=== PATIENT | female | born 1960 | race Caucasian/White ===

== ENCOUNTER 2024-03-08 11:34 | Emergency (ER) | payer MEDICAID, SELFPAY ==
--- NOTE | ~2024-03-08 | CT_ITS ---
History: Fall PROCEDURE: CT lumbar spine without intravenous contrast. COMPARISON: None TECHNIQUE: Multiple contiguous axial images of the lumbar spine were performed without the administration of int ravenous contrast. DLP: 260 mGy-cm FINDINGS: Preservation of the normal lordotic curvature of the lumbar spine. Degenerative disease is present most prominent at the level of L5/S1 with osteophyte formation, disc space narrowing, endplate changes and severe facet hypertrophy. Grade 1 anterolisthesis of L4 onto L5 is present. No acute compression fractures are present. No soft tissue abnormality is noted. Within the right hemipelvis is a well-circumscribed focus of fluid attenuation measuring 3.8 x 3.0 x 3.8 cm (anterior to posterior x medial to lateral x cranial to caudal dimension). This likely represe nts a right ovarian cyst for which nonemergent ultrasound may be performed as follow-up. Impression: Degenerative disease, without acute compression fracture. Findings within the right hemipelvis which most likely represent a right ovarian cyst for which nonem ergent ultrasound may be performed for confirmation. Reviewed, dictated and finalized at location A. OR STORAGE ENGINEER Impression: Degenerative disease, without acute compression fracture. Findings within the right hemipelvis which most likely represent a right ovaria n cyst for which nonemergent ultrasound may be performed for confirmation.
--- NOTE | ~2024-03-08 | CT_ITS ---
EXAMINATION: CT facial & cervical spine wo DATE: 03/08/2024 13:12 INDICATION: Head injury. TECHNIQUE: Computed tomography (CT) of the maxillofacial region and cervical spine was performed with out intravenous contrast. Automated exposure control and iterative reconstruction technique were empl oyed. The dose-length product was 180.97 mGy-cm. COMPARISON: None FINDINGS: MAXILLOFACIAL CT: The orbits are normal. There is rightward deviation of the nasal septum. No fracture. The paranasal s inuses are clear. CERVICAL SPINE CT: Alignment is normal. Vertebral body heights are normal. There is mildly decreased disc height at C2-C 3 and C3-C4 and moderately decreased disc height from C4-C5 through C6-C7. The following disc levels are specifically discussed: C2-C3: There is mild left uncovertebral joint hypertrophy. There is mild left facet joint osteoarthri tis. There is ankylosis of right facet joint with mild hypertrophy. There is mild left neural foramin al stenosis. There is no central canal stenosis. C3-C4: There is mild bilateral uncovertebral joint osteoarthritis. There is mild bilateral facet join t osteoarthritis. There is mild bilateral neural foraminal stenosis. There is mild central canal sten osis. C4-C5: There is severe right and mild left uncovertebral joint osteoarthritis. There is mild right an d severe left facet joint osteoarthritis. There is mild bilateral neural foraminal stenosis. There is mild central canal stenosis. C5-C6: There is severe bilateral uncovertebral joint osteoarthritis. There is mild bilateral facet tita int osteoarthritis. There is mild right and moderate left neural foraminal stenosis. There is moderat e central canal stenosis. C6-C7: There is severe bilateral uncovertebral joint osteoarthritis. There is severe bilateral facet joint osteoarthritis. There is mild bilateral neural foraminal stenosis. There is mild central canal stenosis. C7-T1: There is no uncovertebral joint osteoarthritis. There is severe bilateral facet joint osteoart hritis. There is mild bilateral neural foraminal stenosis. There is no central canal stenosis. IMPRESSION: 1. No fracture. 2. Moderate cervical spondylosis. Reviewed, dictated and finalized at location A. TRUCK ENGINE MECHANIC
--- NOTE | ~2024-03-08 | CT_ITS ---
History: Fall. PROCEDURE: CT head without contrast. COMPARISON: None TECHNIQUE: Axial imaging of the head performed from the skull base to the vertex without IV contrast. Sagittal a nd coronal reformations obtained. DLP: 605 mGy-cm FINDINGS: The ventricles are normal in size, shape and position. There is no mass, mass effect or midline shift. There is no abnormal extra-axial fluid collection or intracranial hemorrhage. Visualized paranasal sinuses are clear. The mastoid air cells are well aerated. No acute displaced fractures within the overlying cranium. Impression: No acute intracranial hemorrhage or suspicious mass effect. Reviewed, dictated and finalized at location A. ER HELPER Impression: No acute intracranial hemorrhage or suspicious mass effect.
--- NOTE | ~2024-03-08 | XR_ITS ---
XR ankle LT min 3V 03/08/2024 12:57 Indication: Left lateral ankle pain Procedure: 4 views left ankle Comparison: No prior studies for comparison. Findings: There is a fibular side plate and screws. No acute fracture or traumatic malalignment. Ossi fication just distal to the medial malleolus consistent with sequela of old trauma. There are degener ative calcaneal enthesophytes. Osteopenia. No acute fracture or traumatic malalignment. Impression: 1: No acute bone or joint abnormality. Reviewed, dictated and finalized at location A. IALIZED LANGUAGE INSTRUCTOR Impression: 1: No acute bone or joint abnormality.
--- NOTE | ~2024-03-08 | XR_ITS ---
EXAMINATION: XR chest 2V 03/08/2024 12:57 INDICATION: Anxiety. Status post fall. PROCEDURE: 2 view chest COMPARISON: 09/03/2018 FINDINGS: The lungs are clear. The cardiomediastinal silhouette is within normal limits. There are no pleural effusions. There is no pneumothorax suspected. IMPRESSION: 1: NO ACUTE CARDIOPULMONARY DISEASE. Reviewed, dictated and finalized at location A. TROPHYSIOLOGY TECHNOLOGIST
--- NOTE | ~2024-03-08 | XR_ITS ---
XR knee LT min 4V 03/08/2024 12:57 Indication: Left knee pain after fall Procedure: 4 views left knee Comparison: No prior studies for comparison. Findings: No fracture, subluxation or dislocation. No significant joint effusion. No foreign bodies. Impression: 1: No acute bone or joint abnormality. Reviewed, dictated and finalized at location A. EONTOLOGIST Impression: 1: No acute bone or joint abnormality.
[2024-03-08 11:42] VITALS: BP 136/100; PULSE 92; RESP 16; TEMP 36.3; O2SAT 95
--- NOTE | 2024-03-08 12:42 | ED.FALL ---
HPI - Fall General Chief Complaint: Alcohol Stated Complaint: +etoh, anxiety, fall yesterday Time Seen by Provider: 03/08/24 12:42 Focused HPI: This is a 63-year-old female that presents to the emergency department after a fall yesterday with head injury. Reports she had been drinking. Fell and hit her head. She believes she lost consciousness. Reports low back pain, left knee pain, left ankle pain. Reporting possibly being in withdrawal. Reports feeling anxious and shaky GENERAL: Well-appearing, well-nourished, and in no acute distress. HEAD: Normocephalic, atraumatic. CHEST: Clear to auscultation. ?No respiratory distress. HEART: Regular rate and rhythm.? NEURO: ?Alert and oriented x3. Patient screened in triage and initial orders placed.? ?Additional care and disposition to be based upon?diagnostic testing and treatment. Related Data Allergies Allergy/AdvReac Type Severity Reaction Status Date / Time codeine Allergy Mild NAUSEA Verified 03/08/24 11:36 erythromycin base Allergy Unknown RASH Verified 03/08/24 11:36 Penicillins Allergy Unknown N/V, RASH Verified 03/08/24 11:36 Sulfa (Sulfonamide Allergy Unknown RASH Verified 03/08/24 11:36 Antibiotics) tramadol Allergy Unknown RASH Verified 03/08/24 11:36 Course Vital Signs Vital signs: Vital Signs Temperature 97.4 F L 03/08/24 11:42 Pulse Rate 92 03/08/24 11:42 Respiratory Rate 16 03/08/24 11:42 Blood Pressure 136/100 H 03/08/24 11:42 Pulse Oximetry 95 03/08/24 11:42 Oxygen Delivery Room Air 03/08/24 11:42 Temperature 97.4 F L 03/08/24 11:42 Pulse Rate 92 03/08/24 11:42 Respiratory Rate 16 03/08/24 11:42 Blood Pressure 136/100 H 03/08/24 11:42 Pulse Oximetry 95 03/08/24 11:42 Oxygen Delivery Room Air 03/08/24 11:42 MDM - Fall MDM Narrative Medical decision making narrative: Patient left after medical screening exam and initial workup, and before any further evaluation or management Lab Data 03/08/24 14:26 03/08/24 14:26 Labs: Lab Results 03/08/24 03/08/24 03/08/24 Range/Units 14:26 14:27 14:32 WBC 9.5 (4.5-10.0) K/mm3 RBC 4.62 (4.2-5.4) M/mm3 Hgb 14.2 (12.0-15.0) g/dL Hct 42.7 (37.0-47.0) % MCV 92.4 (80-100) fl MCH 30.7 (26-34) pg MCHC 33.3 (32-36) g/dl RDW 13.9 (11.5-14.5) % Plt Count 360 (150-375) k/mm3 MPV 8.9 (7.4-10.4) fl Immature Gran % (Auto) 0.3 (0-0.5) % Neut % (Auto) 71.3 (45.5-73.1) % Lymph % (Auto) 21.4 (18.3-44.2) % Larue % (Auto) 6.6 (2.6-8.5) % Eos % (Auto) 0.0 (0-4.4) % Baso % (Auto) 0.4 (0.2-1.2) % Lymph # (Auto) 2.04 (0.9-3.2) K/mm3 Larue # (Auto) 0.6 (0.1-0.6) K/mm3 Eos # (Auto) 0.0 (0-0.3) K/mm3 Baso # (Auto) 0.0 (0.0-0.1) K/mm3 Abs Immat Gran (auto) 0.03 (0.00-0.031) K/mm3 Absolute Neuts (auto) 6.8 H (1.3-6.7) K/mm3 Absolute Nucleated RBC 0.000 (0.0-0.012) K/mm3 Nucleated RBC % 0.0 (0.0-0.2) % PT 12.4 (11.1-14.7) Seconds INR 0.9 APTT 23.6 (22.3-36.8) Seconds Sodium 142 (137-145) mmol/L Potassium 4.7 (3.4-5.0) mmol/L Chloride 104 (98-107) mmol/L Carbon Dioxide 18 L (22-30) mmol/L Anion Gap 20 H (4-12) mmol/L BUN 18 H (7-17) mg/dL Creatinine 0.74 (0.7-1.0) mg/dL Estim Creat Clear Calc Not Reportable Estimated GFR > 60 (59 - ) Glucose 114 H (65-110) mg/dL Calcium 8.5 (8.4-10.2) mg/dL Total Bilirubin 0.7 (0.2-1.3) mg/dL AST 39 H (14-36) U/L ALT 23 (6-35) U/L Alkaline Phosphatase 106 (38-126) U/L Total Protein 8.0 (6.3-8.2) g/dL Albumin 4.8 (3.5-5.1) g/dL Lipase 106 (23-300) U/L Urine Color Yellow (Yellow) Urine Appearance Clear (Clear) Urine pH 7.5 (5.0-9.0) Ur Specific [place] 1.017 (1.001-1.035) Urine Protein Trace (Negative) mg/dL Urine Glucose (UA) Negative (Negative) mg/dL Urine Ketones Negative (Negative) mg/dL Ur Blood (Man) Negative (Negative) Urine Nitrate Negative (Negative) Urine Bilirubin Negative (Negative) Urine Urobilinogen 0.2 (<2.0) mg/dL Leukocyte Esterase Rfl Negative (Negative) ASAF/UL Urine RBC 3-5 H (0-2) /hpf Urine WBC 0-5 (0-3) /hpf Ur Squamous Epith Cells Moderate (Few) /hpf Urine Bacteria None seen /hpf Urine Casts 3-5 Ethyl Alcohol 214 (<10) mg/dL Discharge Plan Discharge Clinical Impression: Alcohol abuse Fall Qualifiers: Encounter type: initial encounter Qualified Code(s): W19.XXXA - Unspecified fall, initial encounter Head injury Qualifiers: Encounter type: initial encounter Qualified Code(s): S09.90XA - Unspecified injury of head, initial encounter Patient Disposition: Elopement After Seen by Prov Condition: Stable Patient Language: Iranian Follow-up/Referrals: PHYSICIAN,INSTRUMENT MAKER [Non-Staff] -
--- OUTSIDE RECORDS SUMMARY | 2024-03-08 13:14 | XMS_ITS | Encounter Summary ---
Author Organization [facility] Address [address] [place] [address] Phone Care Team Providers Care Quality Systems Specialist Name Role Phone José Sagastume MD Primary Care Provider [phone] Loyda Jackson APRN, [facility] Primary Care Provider + Siri Henao APRN, SALES REPRESENTATIVE [employer] Unavailable + [phone] Gregorio Lemus MD Unavailable [phone] Loyda Jackson APRN, [employer] D[employer]ER [employer] Primary Care Provider + José Sagastume MD Primary Care Provider [phone] Loyda Jackson APRN, [employer] T[employer] Primary Care Provider + José Sagastume MD Primary Care Provider [phone] Loyda Jackson APRN, [employer] DRIER T[employer] Primary Care Provider + Provider, None Primary Care Provider Unavailabl e Loyda Jackson APRN, [employer] DRIER TENDER Primary Care Provider + José Sagastume MD Primary Care Provider [phone] Provider, None Primary Care Provider Unavailabl e Reason for Visit * Reason Comments Medication Refill Encounter Details Date Type Department Care Team (Late st Contact Info) Description 10/02/2021 [facility]ill [facility] - [facility] [address] [place] [address] José Sagastume MD [address] [place] [address] Medication Refill Social History Tobacco Use Types Packs/Day Years Used Date Smoking Tobacco: Never Smokeless Tobacco: Never Alcohol Use Standard Drinks/Week Comments Yes 0 (1 standard drink = 0.6 oz pur e alcohol) Occasionally PHQ-2 Answer Date Recorded Total Score - Questions 1-9 0 04/06 Comments No Sex and Gender Information Value Date Recorded Sex Assigned at Female 09/19/2022 10:32 AM CDT Legal Sex Female 10:55 PM CDT Gender Identity Female 09/19/2022 10:32 AM CDT Sexual Orientation Not on file 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 No / Unsure 09/15/2021 2:40 PM CDT documented as of this encounter Miscellaneous Notes * Telephone Encounter - Alanna Alfredo RN - 10/04/2021 10:17 AM CDT Medication failed the protocol, provider to review and approve the medication order if appropriate. Requested Prescriptions Pending Prescriptions Disp Refills methocarbamol (ROBAXIN) 750 MG Tablet [Pharmacy Med Name: Methocarbamol 750 MG Oral Tablet] 120 Tablet 0 Sig: TAKE 1 TABLET BY MOUTH 4 TIMES DAILY NEEDED FOR MUSCLE SPASM Not Delegated - Muscle Relaxants Protocol Failed - 10/02/2021 9:09 AM Failed - This refill cannot be delegated Passed - Visit with relevant provider in past 12 months or upcoming 90 days Recent Visits Date Type Provider Dept 08/26/21 Office Visit José Sagastume MD [facility] 04/22/21 Office Visit José Sagastume MD [facility] Showing recent visits within past 365 days and meeting all other requirements Future Appointments No visits were found meeting these conditions. Showing future appointments within next 90 days and meeting all other requirements documented in this encounter Plan of Treatment Upcoming Encounters Date Type Department Care Team (Late st Contact Info) Description 09/03/2024 10:30 AM CDT Office Visit [facility] Neu[facility] [address] [place] [address] Gregorio Lemus MD [address] [place] [address] documented as of this encounter Visit Diagnoses Diagnosis Chronic bilateral low back pain without sciatica documented in this encounter Additional Health Concerns Infection Onset Date Last Indicated Resolved Time COVID - 19 01/22/2022 01/22/2022 01/25/2022 8:35 AM MANAGED CARE ANALYST COVID - 19 Confirmed 02/21/2022 02/21/2022 023 12:16 AM MANAGED CARE ANALYST COVID - 19 04/06/2023 04/06/2023 04/16/2023 12:1 6 AM MANAGED CARE ANALYST C. difficile Rule-Out 04/08/2023 04/08/20232023 2:20 PM MANAGED CARE ANALYST C. difficile Rule-Out 04/19/2023 04/20/20232023 9:22 AM CDT COVID - 19 07/06/2023 07/06/2023 07/06/2023 4:44 PM CDT Assessment Noted Time PHQ-9 Depression Total Score: 0 04/23/19 22 4:00 PM CDT documented as of this encounter Care Teams Quality Systems Specialist Relationship Specialty Start Date End Date José Sagastume MD PCP - General Family Medicine 03/02/20 03/12/23 Loyda Jackson, TECHNICAL TRAINING SPECIALIST, OVEN DRIER TENDER [address] [place] [address] PCP - General Advanced Practice Nurse 03/13/23 04/18/23 Loyda Jackson, TECHNICAL TRAINING SPECIALIST, OVEN DRIER TENDER [address] [place] [address] PCP - General Advanced Practice Nurse 04/19/23 05/08/23 José Sagastume MD PCP - General Family Medicine 05/09/23 05/21/23 Loyda Jackson TECHNICAL TRAINING SPECIALIST, OVEN DRIER TENDER [address] [place] [address] PCP - General Advanced Practice Nurse 05/22/23 05/25/23 José Sagastume MD PCP - General Family Medicine 05/26/23 05/27/23 Loyda Jackson, TECHNICAL TRAINING SPECIALIST, OVEN DRIER TENDER [address] [place] [address] PCP - General Advanced Practice Nurse 05/28/23 06/15/23 Provider, None [place] PCP - General 06/16/23 07/05/23 Loyda Jackson, TECHNICAL TRAINING SPECIALIST, OVEN DRIER TENDER [address] [place] [address] PCP - General Advanced Practice Nurse 07/06/23 07/10/23 José Sagastume MD PCP - General Family Medicine 07/11/23 10/11/23 Provider, None [place] PCP - General 10/29/23 Siri Henao, TECHNICAL TRAINING SPECIALIST, SALES REPRESENTATIVE [employer] [address] [place] [address] Nurse Practitioner Advanced Practice Nurse 02/17/22 Gregorio Lemus MD [address] [place] [address] Consulting Physician Neurology 02/21/23 documented as of this encounter
--- OUTSIDE RECORDS SUMMARY | 2024-03-08 13:14 | XMS_ITS | Encounter Summary ---
Author Organization [facility] Address [address] [place] [address] Phone Care Team Providers Care Hemodialysis Charge Nurse Name Role Phone José Sagastume MD Primary Care Provider [phone] Loyda Jackson APRN, [facility] Primary Care Provider + Siri Henao APRN, CIRC[employer] KNITTER Unavailable + [phone] Gregorio Lemus MD Unavailable [phone] Loyda Jackson APRN, [employer] Primary Care Provider + José Sagastume MD Primary Care Provider [phone] Loyda Jackson APRN, [employer] Primary Care Provider + José Sagastume MD Primary Care Provider [phone] Loyda Jackson APRN, [employer] Primary Care Provider + Provider, None Primary Care Provider Unavailabl e Loyda Jackson APRN, [employer] Primary Care Provider + José Sagastume MD Primary Care Provider [phone] Provider, None Primary Care Provider Unavailabl e Reason for Visit * Reason Comments Medication Refill Encounter Details Date Type Department Care Team (Late st Contact Info) Description 12/02/2021 [facility]ill [facility] [address] [place] [address] José Sagastume MD [address] [place] [address] Medication Refill Social History Tobacco Use Types [...] 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 No / Unsure 11/11/2021 12:55 PM CDT documented as of this encounter Miscellaneous Notes * Telephone Encounter - Alanna Alfredo RN - 12/03/2021 10:13 AM CDT Medication failed the protocol, provider to review and approve the medication order if appropriate. Requested Prescriptions Pending Prescriptions Disp Refills methocarbamol (ROBAXIN) 750 MG Tablet [Pharmacy Med Name: Methocarbamol 750 MG Oral Tablet] 120 Tablet 0 Sig: TAKE 1 TABLET BY MOUTH 4 TIMES DAILY NEEDED FOR MUSCLE SPASM Not Delegated - Muscle Relaxants Protocol Failed - 12/02/2021 7:54 PM Failed - This refill cannot be delegated Passed - Visit with relevant provider in past 12 months or upcoming 90 days Recent Visits Date Type Provider Dept 08/26/21 Office Visit José Sagastume MD [facility] 04/22/21 Office Visit José Sagastume MD [facility] Showing recent visits within past 365 days and meeting all other requirements Future Appointments Date Type Provider Dept 12/09/21 Appointment José Sagastume MD [facility] Showing future appointments within next 90 days and meeting all other requirements documented in this encounter Plan of Treatment Upcoming Encounters Date Type Department Care Team (Late st Contact Info) Description 09/03/2024 10:30 AM CDT [facility] [address] [place] [address] Gregorio Lemus MD [address] [place] [address] documented as of this encounter Visit Diagnoses Diagnosis Chronic bilateral low back pain without sciatica documented in this encounter Additional Health Concerns Infection Onset Date Last Indicated Resolved Time COVID - 19 01/22/2022 01/22/2022 01/25/2022 8:35 AM CARPENTER'S ASSISTANT COVID - 19 Confirmed 02/21/2022 02/21/2022 023 12:16 AM CARPENTER'S ASSISTANT COVID - 19 04/06/2023 04/06/2023 04/16/2023 12:1 6 AM CARPENTER'S ASSISTANT C. difficile Rule-Out 04/08/2023 04/08/20232023 2:20 PM CARPENTER'S ASSISTANT C. difficile Rule-Out 04/19/2023 04/20/20232023 9:22 AM CDT COVID - 19 07/06/2023 07/06/2023 07/06/2023 4:44 PM CDT Assessment Noted Time PHQ-9 Depression Total Score: 0 04/23/19 4:00 PM CDT documented as of this encounter Care Teams Hemodialysis Charge Nurse Relationship Specialty Start Date End Date José Sagastuem MD PCP - General Family Medicine 03/02/20 03/12/23 Loyda Jackson, COMPUTER SYSTEMS INTEGRATOR, [employer] [address] [place] [address] PCP - General Advanced Practice Nurse 03/13/23 04/18/23 Loyda Jackson APRN, [employer] [address] [place] [address] PCP - General Advanced Practice Nurse 04/19/23 05/08/23 José Sagastume MD PCP - General Family Medicine 05/09/23 05/21/23 Loyda Jackson APRN, [employer] [address] [place] [address] PCP - General Advanced Practice Nurse 05/22/23 05/25/23 José Sagastume MD PCP - General Family Medicine 05/26/23 05/27/23 Loyda Jackson APRN, [employer] [address] [place] [address] PCP - General Advanced Practice Nurse 05/28/23 06/15/23 Provider, None [place] PCP - General 06/16/23 07/05/23 Loyda Jackson APRN, [employer] [address] [place] [address] PCP - General Advanced Practice Nurse 07/06/23 07/10/23 José Sagastume MD PCP - General Family Medicine 07/11/23 10/11/23 Provider, None [place] PCP - General 10/29/23 Siri Henao COMPUTER SYSTEMS INTEGRATOR, CIRCULAR KNITTER [address] [place] [address] Nurse Practitioner Advanced Practice Nurse 02/17/22 Gregorio Lemus MD [address] [place] [address] Consulting Physician Neurology 02/21/23 documented as of this encounter
--- OUTSIDE RECORDS SUMMARY | 2024-03-08 13:15 | XMS_ITS | CONTINUITY OF CARE DOCUMENT ---
Author Name kalin gagnon Address Unknown Organization [facility] Address [address] [place] [address] Phone [phone] Care Team Providers Care Bender Hand Name Role Phone Miguel GUTIERRES, Allan Unavailable [phone] ALEKSANDR MONTEIRO MD Unavailable ALEKSANDR MONTEIRO MD Unavailable [phone] PROBLEMS Condition Status Date Provider Notes Other symptoms involving cardiovascular system completed - Allan Rivera MD Chest pain-nl stress test , nl echo active Allan Rivera MD GERD active Allan Rivera MD HTN essential active Allan Rivera MD Hypercholesterolemia active Allan Rivera MD ENCOUNTERS Date Type Provider Location Encounter Diag nosis - In-person encounter Office Visit Allan Rivera MD [facility] Chest pain-nl stress test , nl echo - In-person encounter Office Visit Allan Rivera MD [facility] Other symptoms involving cardiovascular systemChest pain-nl stress test , nl echoGERDHTN essentialHypercholesterolemia VITAL SIGNS Date Observation Value Provider blood pressure, diastolic 105 mm[Hg] velma Bret blood pressure, systolic 144 mm[Hg] Livia peacea Bret pulse rate 100 /min Elizabet Bret Body Mass Index (Ratio) 30.72 kg/m2 Drea Queen oxygen saturation, oximetry 96 % Elizabet Bret respiratory rate E&M 15 /min Elizabet Guann weight E&M 168 [lb_av] Elizabet Queen Body Mass Index (Ratio) 31.09 kg/m2 Anea syeda Manuel blood pressure, diastolic 108 mm[Hg] An eatris Manuel blood pressure, systolic 153 mm[Hg] Ane atris Manuel pulse rate 97 /min Aneatris Manuel oxygen saturation, oximetry 98 % Aneatris Manuel respiratory rate E&M 18 /min Aneatri s Manuel weight E&M 170 [lb_av] Kayleyatris Manuel height E&M 62 [in_i] Kayleyatrramona Jackson blood pressure, diastolic 90 mm[Hg] Ta zack Conklin blood pressure, systolic 140 mm[Hg] Ortega ica Conklin ALLERGIES Allergy Name Onset Date Reaction Criticality Status ULTRAM High Criticality active SULFA High Criticality active EES High Criticality active HISTORY OF MEDICATION USE Medication Status Instructions Dates Provider Indications Com ments LOTENSIN HCT 10-12.5 MG ORAL TABLET active ONE TAB. DAILY Allan Rivera MD [facility] SUPER B COMPLEX/C ORAL TABLET active once daily Elizabet Queen MULTIVITAMINS ORAL CAPSULE active ONE TAB. DAILY Elizabet Queen FISH OIL 1000 MG ORAL CAPSULE active 2 once daily Elizabet Queen HM POTASSIUM 595 (99 K) MG ORAL TABLET active once daily Elizabet Queen AMITRIPTYLINE HCL 75 MG ORAL TABLET active once daily Elizabet Queen LIPITOR 40 MG ORAL TABLET active ONE TAB. DAILY Elizabet Queen ASPIRIN 81 MG ORAL TABLET active ONE TAB. DAILY Betty Jackson OMEPRAZOLE 20 MG ORAL TABLET DELAYED RELEASE active 1 tab daily Betty Jackson SEROQUEL TABLET active 600 mg one tab daily Kayleycarterramona Jackson SOCIAL HISTORY Date Observation Value Provider social history reviewed E&M reviewed - no changes required Allan Rivera MD smoking status Never smoker Elizabet romero social history reviewed E&M reviewed - no changes required Allan Rivera MD smoking status Never smoker Betty romero smoking status never Ambar Conklin FAMILY HISTORY Family Member Condition Other Family Member Family History of Co ronary Artery Disease: Father Negative FH of Diabe nasim, Hypertension, or Coronary Artery Disease Mother Negative FH of Diabe nasim, Hypertension, or Coronary Artery Disease INSURANCE PROVIDERS Payer name Policy type / Coverage type [place]acc red republic[place] MED[place] Medicaid [id number] TREATMENT PLAN Date Name Performer follow up: H er updated medication list for this problem includes: Aspirin 81 Mg Tabs (Aspirin) ..... One tab. daily Lotensin Hct 10-12.5 Mg Tabs (Benazepril-hydrochlorothiazide) ..... One tab. daily BP today: 144/105 P rior BP: 153/108 (12/17/2013) Prior 10 Yr Risk Heart Disease: Not enough information (12/13/2013) Allan Rivera MD nw patient visit: H er updated medication list for this problem includes: Aspirin 81 Mg Tabs (Aspirin) ..... One tab. daily BP today: 153/108 P rior BP: 140/90 (12/13/2013) Prior 10 Yr Risk Heart Disease: Not enough information (12/13/2013) Allan Rivera MD HISTORY OF PROCEDURES Procedure Date Procedure Name Provider Procedure Notes S patricio EKG Allan Rivera MD completed
--- OUTSIDE RECORDS SUMMARY | 2024-03-08 13:15 | XMS_ITS | Encounter Summary ---
Author Organization [facility] Address [address] [place] [address] Phone Care Team Providers Care Clinical Nurse Name Role Phone José Sagastume MD Primary Care Provider [phone] Loyda Jackson APRN, [facility] Primary Care Provider + Siri Henao APRN, AIRLINE FLIGHT ATTENDANT Unavailable + [phone] Gregorio Lemus MD Unavailable [phone] Loyda Jackson APRN, DEPARTMENT HELPER Primary Care Provider + José Sagastume MD Primary Care Provider [phone] Loyda Jackson APRN, DEPARTMENT HELPER Primary Care Provider + José Sagastume MD Primary Care Provider [phone] Loyda Jackson APRN, DEPARTMENT HELPER Primary Care Provider + Provider, None Primary Care Provider Unavailabl e Loyda Jackson APRN, DEPARTMENT HELPER Primary Care Provider + José Sagastume MD Primary Care Provider [phone] Provider, None Primary Care Provider Unavailabl e Reason for Visit * Reason Comments Medication Refill Encounter Details Date Type Department Care Team (Late st Contact Info) Description 01/28/2023 [facility]ill [facility] - [facility] [address] [place] [address] José Sagastume MD [address] [place] [address] Medication Refill Social History Tobacco Use Types Packs/Day Years Used Date Smoking Tobacco: Never Smokeless Tobacco: Never Alcohol Use Standard Drinks/Week Comments Yes 28 (1 standard drink = 0.6 oz pu re alcohol) 3-4x per week PHQ-2 Answer Date Recorded Total Score - Questions 1-9 0 04/06 Sexually Active Control Partners Comments Not Currently Comments No Sex and Gender Information Value Date Recorded Sex Assigned at Female 09/19/2022 10:32 AM CDT Legal Sex Female 10:55 PM CDT Gender Identity Female 09/19/2022 10:32 AM CDT Sexual Orientation Not on file 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 Requested Prescriptions Pending Prescriptions Disp Refills chlordiazePOXIDE (LIBRIUM) 25 MG Capsule [Pharmacy Med Name: chlordiazePOXIDE HCl 25 MG Oral Capsule] 60 Capsule 0 Sig: TAKE 2 CAPSULES BY MOUTH THREE TIMES DAILY NEEDED FOR WITHDRAWAL OR ANXIETY FOR UP TO 10 DAYS. Not Delegated - Benzodiazepines Protocol Failed - 01/28/2023 10:34 AM Failed - This refill cannot be delegated Passed - Visit with relevant provider in past 12 months or upcoming 90 days Recent Visits Date Type Provider Dept 01/18/23 Office Visit Loyda Jackson APRN, [facility] 12/16/22 Office Visit Loyda Jackson APRN, [facility] 11/28/22 Office Visit Loyda Jackson APRN, [facility] 11/21/22 Office Visit Loyda Jackson APRN, [facility] 09/20/22 Telemedicine Loyda Jackson APRN, [facility] 07/11/22 Office Visit Loyda Jackson APRN, [facility] 06/13/22 Office Visit Loyda Jackson APRN, [facility] 04/22/22 Office Visit Loyda Jackson APRN, [facility] 04/06/22 Office Visit Loyda Jackson APRN, [facility] 03/11/22 Office Visit José Sagastume MD [facility] Showing recent visits within past 365 days and meeting all other requirements Future Appointments Date Type Provider Dept 04/19/23 Appointment Loyda Jackson APRN, [facility] Showing future appointments within next 90 days and meeting all other requirements 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 documented in this encounter Plan of Treatment Upcoming Encounters Date Type Department Care Team (Late st Contact Info) Description 09/03/2024 10:30 AM CDT Office Visit [facility] - Neurology [facility] [address] [place] [address] Gregorio Lemus MD [address] [place] [address] documented as of this encounter Visit Diagnoses Diagnosis Alcohol withdrawal syndrome without complication (HCC) documented in this encounter Additional Health Concerns Infection Onset Date Last Indicated Resolved Time COVID - 19 04/06/2023 04/06/2023 04/16/2023 12:1 6 AM SOLA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 C. difficile Rule-Out 04/08/2023 04/08/20232023 2:20 PM SOLA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 C. difficile Rule-Out 04/19/2023 04/20/20232023 9:22 AM CDT COVID - 19 07/06/2023 07/06/2023 07/06/2023 4:44 PM CDT Assessment Noted Time PHQ-9 Depression Total Score: 0 04/23/19 4:00 PM CDT documented as of this encounter Care Teams Clinical Nurse Relationship Specialty Start Date End Date José Sagastume MD PCP - General Family Medicine 03/02/20 03/12/23 Loyda Jackson, EDUCATIONAL PSYCHOLOGIST, DEPARTMENT HELPER [address] [place] [address] PCP - General Advanced Practice Nurse 03/13/23 04/18/23 Loyda Jackson, EDUCATIONAL PSYCHOLOGIST, DEPARTMENT HELPER [address] [place] [address] PCP - General Advanced Practice Nurse 04/19/23 05/08/23 José Sagastume MD PCP - General Family Medicine 05/09/23 05/21/23 Loyda Jackson, EDUCATIONAL PSYCHOLOGIST, DEPARTMENT HELPER [facility] [place] [address] PCP - General Advanced Practice Nurse 05/22/23 05/25/23 José Sagastume MD PCP - General Family Medicine 05/26/23 05/27/23 Loyda Jackson, EDUCATIONAL PSYCHOLOGIST, DEPARTMENT HELPER [address] [place] [address] PCP - General Advanced Practice Nurse 05/28/23 06/15/23 Provider, None CT PCP - General 06/16/23 07/05/23 Loyda Jackson, EDUCATIONAL PSYCHOLOGIST, DEPARTMENT HELPER [address] [place] [address] PCP - General Advanced Practice Nurse 07/06/23 07/10/23 José Sagastume MD PCP - General Family Medicine 07/11/23 10/11/23 Provider, None CT PCP - General 10/29/23 Siri Henao, EDUCATIONAL PSYCHOLOGIST, AIRLINE FLIGHT ATTENDANT [address] [place] [address] Nurse Practitioner Advanced Practice Nurse 02/17/22 Gregorio Lemus MD [address] [place] [address] Consulting Physician Neurology 02/21/23 documented as of this encounter
--- OUTSIDE RECORDS SUMMARY | 2024-03-08 13:15 | XMS_ITS | Clinical Summary ---
Author Organization [facility] Address [address] [place] [address] Care Team Providers Care Manager Utilization Management Name Role Phone Loyda Jackson Primary Care Provider [phone] Allergies Active Allergy Reactions Criticality Noted Date Comments Erythromycin Rash Medium Penicillins Rash Medium 01/14/2019 Sulfa (Sulfonamide Antibiotics) Rash Medium Reaction: Rash, , Tramadol Other (See comments),Vomiting Low DIZZY Medications amitriptyline (ELAVIL) 100 mg tablet Take 1 tablet (100 mg total) by mouth nightly as needed for sleep 30 tablet 1 Active Additional Information Patient taking differently:100 mg oral Nightly PRN, sleep,Indications: anxiety, Reported on 06/08/2022 rosuvastatin (CRESTOR) 20 mg tabletIndicatio ns:hyperlipidem ia Take 1 tablet (20 mg total) by mouth nightly 2 Active methocarbamoL (ROBAXIN) 750 mg tablet TAKE 1 TABLET BY MOUTH 4 TIMES DAILY NEEDED FOR MUSCLE SPASM 2 Active citalopram (CeleXA) 10 mg tabletIndicatio ns:Generalized Anxiety Disorder Take 1 tablet (10 mg total) by mouth daily 30 tablet 1 3 Active folic acid (FOLVITE) 1 mg tabletIndicatio ns:Folate Deficiency Take 1 tablet (1 mg total) by mouth daily for 2 doses 2 tablet 3 Active hydrOXYzine (VISTARIL) 50 mg capsuleIndicati ons:anxiety Take 1 capsule (50 mg total) by mouth every 6 (six) hours as needed for anxiety 30 capsule 1 3 Active multivit kncxutjn-eqyp-P A-calcium (THERA-M) 9 mg iron-400 mcg tabletIndicatio ns:Vitamin Deficiency Prevention Take 1 tablet by mouth daily 30 tablet 1 3 Active thiamine (VITAMIN B1) 100 mg tabletIndicatio ns:Thiamine Deficiency Take 1 tablet (100 mg total) by mouth daily for 2 doses 2 tablet 3 Active LORazepam (ATIVAN) 0.5 mg tablet Take 1 tablet (0.5 mg total) by mouth every 6 (six) hours as needed for anxiety 6 tablet 4 Active Active Problems Problem Noted Date Diagnosed Date Alcohol withdrawal syndrome without complication 06/08/2022 Dupuytren contracture 09/08/2021 Overview (09/08/2021): Added automatically from request for surgery [id number] Fatigue 02/28/2020 Liver dysfunction 02/28/2020 Weight gain 02/28/2020 Insect bite of right thigh 08/07/2019 Encounter for medication refill 08/07/2019 Lipoma of left upper extremity 10/11/2017 Skin lesion 11/19/2015 Inflamed seborrheic keratosis 11/19/2015 Chest pain, unspecified 12/17/2013 Gastroesophageal reflux disease 12/17/2013 Hypercholesterolemia 12/17/2013 Primary hypertension 12/17/2013 Immunizations Name Administration Dates Next Due Hep A / Hep B 08/11/2009,08/11/2009 Influenza, Quadrivalent, Spl it, Intramuscular 10/13/2016 Influenza, Quadrivalent, Spl it, Preservative Free, Intramuscular 11/14/2020,02/28/2020,10/16/2015,12/19 ZOSTER Recombinant 04/03/2021 Surgical History Surgery Date Site/Laterality Comments TUBAL LIGATION tubal ligation AUGMENTATION MAMMOPLASTY breast augmentation OPEN REDUCTION INTERNAL FIXATION Left ORIF Medical History Medical History Date Comments Hx Other Medical Neurological Is suses Hx Other Medical Breast Reconstr uction Hx Other Medical Tubal Anxiety Alcoholism (CMS/HCC) (HCC) Addiction to drug (CMS/HCC) (HCC) Hypercholesteremia Migraines Thyroid disease Urinary tract infection Hypertension Hypothyroidism Family History Medical History Relation Name Comments Other Brother 2 Alive and well; Arthritis Father Other Father Alive and well; Arthritis Mother Leukemia Mother Leukemia; Cancer Other Family history of cancer; Other Sister 2 Alive and well; Anesthesia problems Neg Hx Relation Name Status Comments Brother 1 Alive Brother 2 Father Alive Mother Other Sister 1 Alive Sister 2 Social History Tobacco Use Types Packs/Day Years Used Date Smoking Tobacco: Never Smokeless Tobacco: Never Tobacco Cessation:Counseling Given: Not Answered Alcohol Use Standard Drinks/Week Comments Yes 0 (1 standard drink = 0.6 oz pure alcohol) 6 beers or 1 pint per day x 3 days Social Connection and Isolation Panel [NHANES] A nswer Date Recorded In a typical week, how many times do you talk on the phone with family, friends, or neighbors? Twice a week 06/10/19 How often do you get togethe r with friends or relatives? Twice a week 06/09/2022 How often do you attend chur ch or alevism services? 1 to 4 times per year 06/09/2022 Do you belong to any clubs o r organizations such as restorationist groups, unions, fraternal or athletic groups, or school groups? No 06/09/2022 How often do you attend meet ings of the clubs or organizations you belong to? Never 06/09/2022 Marital Status Not on file 06/09/2022 AUDIT-C Answer Date Recorded Q1: How often do you have a drink containing alc ohol? 2-3 times a week 11/16/2021 Q2: How many drinks containi ng alcohol do you have on a typical day when you are drinking? 1 or 2 11/16/2021 Q3: How often do you have si x or more drinks on one occasion? Never 11/16/2021 Overall Financial Resource Strain (CARDIA) Answe r Date Recorded How hard is it for you to pa y for the very basics like food, housing, medical care, and heating? Somewhat hard 06/09/2022 Hunger Vital Sign Answer Date Recorded Within the past 12 months, y ou worried that your food would run out before you got the money to buy more. Never true 06/10/19 23 Within the past 12 months, t he food you bought just didn't last and you didn't have money to get more. Never true 06/09/2022 PRAPARE - Transportation Answer Date Re corded In the past 12 months, has l ack of transportation kept you from medical appointments or from getting medications? No 050 05/2022 In the past 12 months, has l ack of transportation kept you from meetings, work, or from getting things needed for daily living? No 06/09/2022 Housing Stability Vital Sign Answer Grover e Recorded In the last 12 months, was t here a time when you were not able to pay the mortgage or rent on time? No 06/09/2022 In the last 12 months, how many places have you lived? 1 06/09/2022 In the last 12 months, was t here a time when you did not have a steady place to sleep or slept in a fci (including now)? No 06/09/2022 Personal Safety Answer Date Recorded Have you ever been in or are you currently in a harmful physical or emotional relationship or is someone making you feel afraid or unsafe? 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 Gender Identity Not on file Sexual Orientation Not on file Obstetrics History Last Filed Vital Signs Vital Sign Reading Time Taken Comments Blood Pressure 120/102 06/24/2023 11:18 AM CDT Pulse 117 06/24/2023 11:18 AM CDT Temperature 36.3 ??C (97.3 ??F) 06/24/2023 11:18 AM C DT Respiratory Rate 20 06/24/2023 11:18 AM CDT Oxygen Saturation 96% 06/24/2023 11:18 AM CDT Inhaled Oxygen Concentration - - Weight 67.1 kg (148 lb) 06/24/2023 9:07 AM CDT Height 157.5 cm (5' 2 ) 06/24/2023 9:07 AM CDT Body Mass Index 27.07 06/24/2023 9:07 AM CDT Plan of Treatment Health Maintenance Due Date Last Done Comments Breast Cancer Screening-Mammogram 1960 Cervical Cancer Screening 1960 Colon Cancer Screening-Colonoscopy 1960 Depression Screening 1960 Hepatitis C Screening 1960 Pneumococcal vaccine <65 (1 of 2 - PCV) 1966 Regular Well Visit/Exam 18-64 1978 Zoster Vaccine (2 of 2) 05/29/2021 04/03/2021 Covid-19 Vaccine (3 - 2023-2 5 season) 2023 06/22/2020, 05/25/2020 Influenza Vaccine (#1) 2023 , 02/01/2022, 11/14/2020, Additional history exists DTaP/Tdap/Td Vaccine (3 - Td or Tdap) 03/13/2033 03/13/2023, 12/04/2022 Insurance [facility] [address] [employer] [facility] IDPA Advance Directives For more information, please contact: [phone] * Full Code (Latest Code Status on File) Date Activated Date Inactivated Comments 06/08/2022 7:40 PM 06/11/2022 3:29 PM * Full Code Date Activated Date Inactivated Comments 06/08/2022 4:39 PM 06/08/2022 7:40 PM Care Teams Manager Utilization Management Relationship Specialty Start Date End Date Loyda Jackson PCP - General Certified Pedorthotist 03/04/23
--- OUTSIDE RECORDS SUMMARY | 2024-03-08 13:15 | XMS_ITS | Encounter Summary ---
Author Organization [facility] Address [address] [place] [address] Care Team Providers Care Lawn Caretaker Name Role Phone Kellen Weaver MD Primary Care Provider [phone] Encounter Details Date Type Department Care Team (Latest Contact Info) Description 09/14/2005 Outpatient Historical [facility] Kellen Weaver MD [address] [place] [address] Unspecified Migraine without Mention of Intractable Migraine (Primary Dx) Social History Tobacco Use Types Packs/Day Years Used Date Smoking Tobacco: Never Assessed Comments Unknown Sex and Gender Information Value Date Recorded Sex Assigned at Not on file 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
--- OUTSIDE RECORDS SUMMARY | 2024-03-08 13:15 | XMS_ITS | Encounter Summary ---
Author Organization [facility] Address [address] [place] [address] Care Team Providers Care Tobacco Sample Puller Name Role Phone Kellen Weaver MD Primary Care Provider [phone] Encounter Details Date Type Department Care Team (Late st Contact Info) Description 04/18/2006 Outpatient Historical Division of Neurology 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
--- OUTSIDE RECORDS SUMMARY | 2024-03-08 13:15 | XMS_ITS | Encounter Summary ---
Author Organization [facility] Address [address] [place] [address] Phone Care Team Providers Care Swing Ride Operator Name Role Phone Siri Henao APRN, [facility] Unavailable + [phone] Gregorio Lemus MD Unavailable [phone] Loyda Jackson APRN, [facility] Primary Care Provider + José Sagastume MD Primary Care Provider [phone] Loyda Jackson APRN, [facility] Primary Care Provider + José Sagastume MD Primary Care Provider [phone] Loyda Jackson APRN, [facility] Primary Care Provider + Provider, None Primary Care Provider Unavailabl e Loyda Jackson APRN, [facility] Primary Care Provider + José Sagastume MD Primary Care Provider [phone] Provider, None Primary Care Provider Unavailabl e Reason for Visit * Reason Comments Medication Refill Encounter Details Date Type Department Care Team (Late st Contact Info) Description 04/24/2023 Refill [facility] - Family Medicine [facility] [place] [address] [place] [address] Loyda Jackson APRN, GUEST SERVICE REPRESENTATIVE [address] [place] [address] Medication Refill Social History Tobacco Use Types Packs/Day Years Used Date Smoking Tobacco: Never Smokeless Tobacco: Never Alcohol Use Standard Drinks/Week Comments Yes 12 (1 standard drink = 0.6 oz pure alcohol) abstinent since recent hospitalization, April 06, formerly drank daily [facility] Utilities Answer Date Recorded In the past 12 months has [employer], gas, oil, or water [employer] threatened to shut off services in your home? Patient declined 04/07/2023 Social Connection and Isolation Panel [NHANES] A nswer Date Recorded In a typical week, how many times do you talk on the phone with family, friends, or neighbors? Patient declined 04/07/2023 How often do you get togethe r with friends or relatives? Patient declined 04/07/2023 How often do you attend yazdanism or mandaeism serv ices? Patient declined 04/07/2023 Do you belong to any clubs o r organizations such as yazdanism groups, unions, fraternal or athletic groups, or school groups? Patient declined 04/07/2023 How often do you attend meet ings of the clubs or organizations you belong to? Patient declined 04/07/2023 Are you , , di vorced, , never , or living with a partner? Patient declined 04/07/2023 AUDIT-C Answer Date Recorded Q1: How often do you have a drink containing alc ohol? Patient declined 04/07/2023 Q2: How many drinks containi ng alcohol do you have on a typical day when you are drinking? Patient declined 04/07/2023 Q3: How often do you have si x or more drinks on one occasion? Patient declined 04/07/2023 Overall Financial Resource Strain (CARDIA) Answe r Date Recorded How hard is it for you to pa y for the very basics like food, housing, medical care, and heating? Patient declined 04/07/2023 PHQ-2 Answer Date Recorded Total Score - Questions 1-9 0 04/06 [facility] of Occupat ional Health - Occupational Stress Questionnaire Answer Date Recorded Do you feel stress - tense, restless, nervous, or anxious, or unable to sleep at night because your mind is troubled all the time - these days? Patient declined 04/07/2023 Exercise Vital Sign Answer Date Recorde d On average, how many days pe r week do you engage in moderate to strenuous exercise (like a brisk walk)? Patient declined On average, how many minutes do you engage in exercise at this level? Patient declined 04/07/2023 Hunger Vital Sign Answer Date Recorded Within the past 12 months, y ou worried that your food would run out before you got the money to buy more. Patient declined Within the past 12 months, t he food you bought just didn't last and you didn't have money to get more. Patient declined 02/2023 PRAPARE - Transportation Answer Date Re corded In the past 12 months, has l ack of transportation kept you from medical appointments or from getting medications? Patient declined 04/07/2023 In the past 12 months, has l ack of transportation kept you from meetings, work, or from getting things needed for daily living? Patient declined 04/07/2023 Housing Stability Vital Sign Answer Grover e Recorded In the last 12 months, was t here a time when you were not able to pay the mortgage or rent on time? Patient declined 04/07/19 24 In the last 12 months, how many places have you lived? 1 04/07/2023 In the last 12 months, was t here a time when you did not have a steady place to sleep or slept in a mcfp (including now)? 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 Requested Prescriptions Pending Prescriptions Disp Refills chlordiazePOXIDE (LIBRIUM) 25 MG Capsule [Pharmacy Med Name: chlordiazePOXIDE HCl 25 MG Oral Capsule] 90 Capsule 0 Sig: TAKE 2 CAPSULES BY MOUTH THREE TIMES DAILY NEEDED FOR WITHDRAWAL OR ANXIETY Not Delegated - Benzodiazepines Protocol Failed - 04/24/2023 9:56 AM Failed - This refill cannot be delegated Passed - Visit with relevant provider in past 12 months or upcoming 90 days Recent Visits Date Type Provider Dept 04/19/23 Office Visit Loyda Jackson PARKING METER ATTENDANT, GUEST SERVICE REPRESENTATIVE [facility] 02/24/23 Office Visit Loyda Jackson PARKING METER ATTENDANT, GUEST SERVICE REPRESENTATIVE [facility] 01/18/23 Office Visit Loyda Jackson PARKING METER ATTENDANT, GUEST SERVICE REPRESENTATIVE [facility] 12/16/22 Office Visit Loyda Jackson PARKING METER ATTENDANT, GUEST SERVICE REPRESENTATIVE [facility] 11/28/22 Office Visit Loyda Jackson PARKING METER ATTENDANT, GUEST SERVICE REPRESENTATIVE [facility] 11/21/22 Office Visit Loyda Jackson PARKING METER ATTENDANT, GUEST SERVICE REPRESENTATIVE [facility] 09/20/22 Telemedicine Loyda Jackson PARKING METER ATTENDANT, GUEST SERVICE REPRESENTATIVE [facility] 07/11/22 Office Visit Loyda Jackson PARKING METER ATTENDANT, GUEST SERVICE REPRESENTATIVE [facility] 06/13/22 Office Visit Loyda Jackson, PARKING METER ATTENDANT, GUEST SERVICE REPRESENTATIVE [facility] Showing recent visits within past 365 days and meeting all other requirements Future Appointments Date Type Provider Dept 07/20/23 Appointment José Sagastume MD [facility] Showing future appointments within next 90 days and meeting all other requirements documented in this encounter Plan of Treatment Upcoming Encounters Date Type Department Care Team (Late st Contact Info) Description 09/03/2024 10:30 AM CDT Office Visit [facility] - Neurology - [place] [address] [place] [address] Gregorio Lemus MD [address] [place] [address] documented as of this encounter Visit Diagnoses Diagnosis Alcohol withdrawal syndrome without complication (HCC) documented in this encounter Additional Health Concerns Infection Onset Date Last Indicated Resolved Time COVID - 19 07/06/2023 07/06/2023 07/06/2023 4:44 PM CDT Assessment Noted Time PHQ-9 Depression Total Score: 0 04/23/19 4:00 PM CDT documented as of this encounter Care Teams Swing Ride Operator Relationship Specialty Start Date End Date Loyda Jackson APRN, GUEST SERVICE REPRESENTATIVE [address] [place] [address] PCP - General Advanced Practice Nurse 04/19/23 05/08/23 José Sagastume MD [address] [place] [address] PCP - General Family Medicine 05/09/23 05/21/23 Loyda Jackson APRN, GUEST SERVICE REPRESENTATIVE [address] [place] [address] PCP - General Advanced Practice Nurse 05/22/23 05/25/23 José Sagastume MD [address] [place] [address] PCP - General Family Medicine 05/26/23 05/27/23 Loyda Jackson APRN, GUEST SERVICE REPRESENTATIVE [address] [place] [address] PCP - General Advanced Practice Nurse 05/28/23 06/15/23 Provider, None [place] PCP - General 06/16/23 07/05/23 Loyda Jackson APRN, GUEST SERVICE REPRESENTATIVE [address] [place] [address] PCP - General Advanced Practice Nurse 07/06/23 07/10/23 José Sagastume MD [address] [place] [address] PCP - General Family Medicine 07/11/23 10/11/23 Provider, None [place] PCP - General 10/29/23 Siri Henao, PARKING METER ATTENDANT, TACK CLEANER [address] [place] [address] Nurse Practitioner Advanced Practice Nurse 02/17/22 Gregorio Lemus MD [address] [place] [address] Consulting Physician Neurology 02/21/23 documented as of this encounter
--- OUTSIDE RECORDS SUMMARY | 2024-03-08 13:15 | XMS_ITS | Encounter Summary ---
Author Organization [facility] Address [address] [place] [address] Phone Care Team Providers Care Machining Engineer Name Role Phone José Sagastume MD Primary Care Provider [phone] Loyda Jackson APRN, [facility] Primary Care Provider + Siri Henao APRN, WOOD HEEL CEMENTER Unavailable + [phone] Gregorio Lemus MD Unavailable +[phone] Loyda Jackson APRN, ADVANCED NURSING PROFESSOR Primary Care Provider + José Sagastume MD Primary Care Provider [phone] Loyda Jackson APRN, ADVANCED NURSING PROFESSOR Primary Care Provider + José Sagastume MD Primary Care Provider [phone] Loyda Jackson APRN, ADVANCED NURSING PROFESSOR Primary Care Provider + Provider, None Primary Care Provider Unavailabl e Loyda Jackson APRN, ADVANCED NURSING PROFESSOR Primary Care Provider + José Sagastume MD Primary Care Provider [phone] Provider, None Primary Care Provider Unavailabl e Reason for Visit * Reason Comments Medication Refill Encounter Details Date Type Department Care Team (Late st Contact Info) Description 10/19/2022 Refill [facility] - [facility] [address] [facility] [place] [address] José Sagastume MD [address] [place] [address] Medication Refill Social History Tobacco Use Types Packs/Day Years Used Date Smoking Tobacco: Never Smokeless Tobacco: Never Alcohol Use Standard Drinks/Week Comments Yes 0 (1 standard drink = 0.6 oz pur e alcohol) 3-4x per week PHQ-2 Answer Date [...] 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 No / Unsure 09/28/2022 5:54 PM CDT documented as of this encounter Miscellaneous Notes * Telephone Encounter - Alanna Alfredo RN - 10/20/2022 9:04 AM CDT Medication failed the protocol, provider to review and approve the medication order if appropriate. Requested Prescriptions Pending Prescriptions Disp Refills citalopram (CeleXA) 10 MG Tablet [Pharmacy Med Name: Citalopram Hydrobromide 10 MG Oral Tablet] 90 Tablet 1 Sig: Take 1 tablet by mouth once daily Citalopram (Celexa) (6 Month Refill Only) Protocol Failed - 10/19/2022 5:44 PM Failed - Patient has established therapy with Citalopram for at least 6 months Passed - Citalopram dose is less than or equal to 40mg / day Passed - Visit with relevant provider in past 6 months or upcoming 90 days Recent Visits Date Type Provider Dept 09/20/22 Telemedicine Loyda Jackson, DIRECTOR OF ACADEMIC, ADVANCED NURSING PROFESSOR [facility] 07[facility]11[facility]22 Office Visit [facility] APRN, CNP [facility]/13/22 Office Visit Loyda Jackson APRN, CNP [facility] 04/22/22 Office Visit Loyda Jackson APRN, [facility] Showing recent visits within past 182 days and meeting all other requirements Future Appointments No visits were found meeting these conditions. Showing future appointments within next 90 days and meeting all other requirements Passed - Has an encounter in the past 6 months with a depression, anxiety, adjustment disorder, OCD, or PTSD visit diagnosis documented in this encounter Plan of Treatment Upcoming Encounters Date Type Department Care Team (Late st Contact Info) Description 09/03/2024 10:30 AM CDT Office Visit [facility] - Neurology [facility] [address] [place] [address] Gregorio Lemus MD [address] [place] [address] documented as of this encounter Visit Diagnoses Not on filedocumented in this encounter Additional Health Concerns Infection Onset Date Last Indicated Resolved Time COVID - 19 04/06/2023 04/06/2023 04/16/2023 12:1 6 AM PUBLIC HEALTH SERVICE OFFICER C. difficile Rule-Out 04/08/2023 04/08/20232023 2:20 PM PUBLIC HEALTH SERVICE OFFICER C. difficile Rule-Out 04/19/2023 04/20/20232023 9:22 AM CDT COVID - 19 07/06/2023 07/06/2023 07/06/2023 4:44 PM CDT Assessment Noted Time PHQ-9 Depression Total Score: 0 04/23/19 22 4:00 PM CDT documented as of this encounter Care Teams Machining Engineer Relationship Specialty Start Date End Date José Sagastume MD PCP - General Family Medicine 03/02/20 03/12/23 Loyda Jackson APRN, AR[facility]ELI [address] [place] [address] PCP - General Advanced Practice Nurse 03/13/23 04/18/23 Loyda Jackson, DIRECTOR OF ACADEMIC, ADVANCED NURSING PROFESSOR [address] [place] [address] PCP - General Advanced Practice Nurse 04/19/23 05/08/23 José Sagastume MD PCP - General Family Medicine 05/09/23 05/21/23 Loyda Jackson, DIRECTOR OF ACADEMIC, ADVANCED NURSING PROFESSOR [address] [place] [address] PCP - General Advanced Practice Nurse 05/22/23 05/25/23 José Sagastume MD PCP - General Family Medicine 05/26/23 05/27/23 Loyda Jackson, DIRECTOR OF ACADEMIC, ADVANCED NURSING PROFESSOR [address] [place] [address] PCP - General Advanced Practice Nurse 05/28/23 06/15/23 Provider, None [place] PCP - General 06/16/23 07/05/23 Loyda Jackson, DIRECTOR OF ACADEMIC, ADVANCED NURSING PROFESSOR [address] [place] [address] PCP - General Advanced Practice Nurse 07/06/23 07/10/23 José Sagastume MD PCP - General Family Medicine 07/11/23 10/11/23 Provider, None [place] PCP - General 10/29/23 Siri Henao APRN, WOOD HEEL CEMENTER [address] [place] [address] Nurse Practitioner Advanced Practice Nurse 02/17/22 Gregorio Lemus MD [address] [place] [address] Consulting Physician Neurology 02/21/23 documented as of this encounter
--- OUTSIDE RECORDS SUMMARY | 2024-03-08 13:15 | XMS_ITS | Encounter Summary ---
Author Organization [employer] Address [address] [place] [address] Care Team Providers Care Business Development Director Name Role Phone Kellen Weaver MD Primary Care Provider [phone] Encounter Details Date Type Department Care Team (Late st Contact Info) Description 09/09/2005 Outpatient Historical Division of Neurology [address] [address] Kellen Weaver MD [address] [place] [address] Social History Tobacco Use Types Packs/Day Years Used Date Smoking Tobacco: Never Assessed Comments Unknown Sex and Gender Information Value Date Recorded Sex Assigned at Not on file Legal Sex Female 4:12 AM CROCHET BEADER Gender Identity Not on file Sexual Orientation Not on file documented as of this encounter Plan of Treatment Not on file documented as of this encounter Visit Diagnoses Not on filedocumented in this encounter Care Teams Business Development Director Relationship Specialty Start Date End Date Kellen Weaver MD [address] [place] [address] PCP - General 09/14/05 11/17/19 documented as of this encounter
--- OUTSIDE RECORDS SUMMARY | 2024-03-08 13:15 | XMS_ITS | Encounter Summary ---
Author Organization [employer] Address [address] [place] [address] Care Team Providers Care Soldering Machine Operator Name Role Phone Kellen Weaver MD Primary Care Provider [phone] Encounter Details Date Type Department Care Team (Latest Contact Info) Description 11/17/2005 Outpatient Historical [facility] Kellen Weaver MD [address] [place] [address] Unspecified Migraine without Mention of Intractable Migraine (Primary Dx) Social History Tobacco Use Types Packs/Day Years Used Date Smoking Tobacco: Never Assessed Comments Unknown Sex and Gender Information Value Date Recorded Sex Assigned at Not on file Legal Sex Female 4:12 AM WOOD AND HARDWARE OUTFITTER Gender Identity Not on file Sexual Orientation Not on file documented as of this encounter Plan of Treatment Not on file documented as of this encounter Visit Diagnoses Diagnosis Migraine, unspecified, without mention of intractable migraine without mention of status migrainosus- Primary documented in this encounter Care Teams Soldering Machine Operator Relationship Specialty Start Date End Date Kellen Weaver MD [address] [place] [address] PCP - General 09/14/05 11/17/19 documented as of this encounter
--- OUTSIDE RECORDS SUMMARY | 2024-03-08 13:15 | XMS_ITS | Encounter Summary ---
Author Organization [employer] Address [address] [place] [address] Care Team Providers Care Plant Operations Coordinator Name Role Phone Kellen Weaver MD Primary Care Provider [phone] Encounter Details Date Type Department Care Team (Late st Contact Info) Description 06/09/2006 Outpatient Historical Division of Neurology [address] [address] Kellen Weaver MD [address] [place] [address] Social History Tobacco Use Types Packs/Day Years Used Date Smoking Tobacco: Never Assessed Comments Unknown Sex and Gender Information Value Date Recorded Sex Assigned at Not on file Legal Sex Female 4:12 AM CUSTOMER LOYALTY REPRESENTATIVE Gender Identity Not on file Sexual Orientation Not on file documented as of this encounter Plan of Treatment Not on file documented as of this encounter Visit Diagnoses Not on filedocumented in this encounter Care Teams Plant Operations Coordinator Relationship Specialty Start Date End Date Kellen Weaver MD [address] [place] [address] PCP - General 09/14/05 11/17/19 documented as of this encounter
--- OUTSIDE RECORDS SUMMARY | 2024-03-08 13:15 | XMS_ITS | Encounter Summary ---
Author Organization [facility] Address [address] [place] [address] Phone Care Team Providers Care Security Guard Dispatcher Name Role Phone José Sagastume MD Primary Care Provider [phone] Loyda Jackson APRN, [facility] Primary Care Provider + Siri Henao APRN, INFRASTRUCTURE ANALYST Unavailable + [phone] Gregorio Lemus MD Unavailable [phone] Loyda Jackson APRN, [facility] Primary Care Provider + José Sagastume MD Primary Care Provider [phone] Loyda Jackson APRN, [facility] Primary Care Provider + José Sagastume MD Primary Care Provider [phone] Loyda Jackson APRN, [facility] Primary Care Provider + Provider, None Primary Care Provider Unavailabl e Loyda Jackson APRN, [facility] Primary Care Provider + José Sagastume MD Primary Care Provider [phone] Provider, None Primary Care Provider Unavailabl e Reason for Visit * Reason Comments Medication Refill Encounter Details Date Type Department Care Team (Late st Contact Info) Description 09/16/2022 Refill [facility] [address] [facility] [place] [address] José Sagastume MD [address] [place] [address] Medication Refill Social History Tobacco Use Types [...] 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 No / Unsure 09/13/2022 9:47 AM CDT documented as of this encounter Miscellaneous Notes * Telephone Encounter - Alanna Alfredo RN - 09/19/2022 7:49 AM CDT Name from pharmacy: chlordiazePOXIDE HCl 25 MG Oral Capsule Will file in chart as: chlordiazePOXIDE (LIBRIUM) 25 MG Capsule The original prescription was reordered on 09/16/2022 by Nadia Wooten PAC. * Telephone Encounter - Alanna Alfredo RN - 09/16/2022 3:24 PM CDT duplicate documented in this encounter Plan of Treatment Upcoming Encounters Date Type Department Care Team (Late st Contact Info) Description 09/03/2024 10:30 AM CDT Office Visit [facility] [address] [place] [address] Gregorio Lemus MD [address] [place] [address] documented as of this encounter Visit Diagnoses Diagnosis Anxiety Anxiety state, unspecified ETOH abuse Alcohol abuse, unspecified documented in this encounter Additional Health Concerns Infection Onset Date Last Indicated Resolved Time COVID - 19 04/06/2023 04/06/2023 04/16/2023 12:1 6 AM MOBILE HOME TECHNICIAN C. difficile Rule-Out 04/08/2023 04/08/20232023 2:20 PM MOBILE HOME TECHNICIAN C. difficile Rule-Out 04/19/2023 04/20/20232023 9:22 AM CDT COVID - 19 07/06/2023 07/06/2023 07/06/2023 4:44 PM CDT Assessment Noted Time PHQ-9 Depression Total Score: 0 04/23/19 4:00 PM CDT documented as of this encounter Care Teams Security Guard Dispatcher Relationship Specialty Start Date End Date José Sagastume MD PCP - General Family Medicine 03/02/20 03/12/23 Loyda Jackson APRN, [facility] [address] [place] [address] PCP - General Advanced Practice Nurse 03/13/23 04/18/23 Loyda Jackson APRN, BENCH MOVER [address] [place] [address] PCP - General Advanced Practice Nurse 04/19/23 05/08/23 José Sagastume MD PCP - General Family Medicine 05/09/23 05/21/23 Loyda Jackson, CYLINDER DEVALVER, [facility] [address] [facility] [facility] [place] [address] PCP - General Advanced Practice Nurse 05/22/23 05/25/23 José Sagastume MD PCP - General Family Medicine 05/26/23 05/27/23 Loyda Jackson, CYLINDER DEVALVER, BENCH MOVER [address] [place] [address] PCP - General Advanced Practice Nurse 05/28/23 06/15/23 Provider, None [place] PCP - General 06/16/23 07/05/23 Loyda Jackson, CYLINDER DEVALVER, BENCH MOVER [address] [place] [address] PCP - General Advanced Practice Nurse 07/06/23 07/10/23 José Sagastume MD PCP - General Family Medicine 07/11/23 10/11/23 Provider, None [place] PCP - General 10/29/23 Siri Henao, CYLINDER DEVALVER, INFRASTRUCTURE ANALYST [address] [place] [address] Nurse Practitioner Advanced Practice Nurse 02/17/22 Gregorio Lemus MD [address] [place] [address] Consulting Physician Neurology 02/21/23 documented as of this encounter
--- OUTSIDE RECORDS SUMMARY | 2024-03-08 13:15 | XMS_ITS | Clinical Summary ---
Author Organization [facility] Address [address] [place] [address] Phone Care Team Providers Care Animal Caretaker Supervisor Name Role Phone Siri Henao APRN, ETL DATABASE DEVELOPER Unavailable [phone] Gregorio Lemus MD Unavailable [phone] Provider, None Primary Care Provider Unavailabl e Allergies Active Allergy Reactions Criticality Noted Date Comments Erythromycin Rash,Itching High 04/04/2016 Sulfa Antibiotics Rash High 04/04/2016 Reaction: Rash, , Tramadol Nausea,Vomiting High 04/04/2016 Medications * This document contains information received from the source organization and may not represent a complete record from that organization. amitriptyline (ELAVIL) 100 MG Tablet Take 100 mg by mouth nightly. Active LORAZEPAM PO Take by mouth. prn Active Zolpidem Tartrate (AMBIEN PO) Take by mouth. Active donepezil (ARICEPT) 5 MG Tablet Take 1 Tablet by mouth nightly. 90 Tablet 3 5 Active aspirin 81 MG Chewable Tablet Take 1 Tablet by mouth daily. 30 Tablet 2 03/04/19 25 Discontinu ed(Med List Clean Up) rosuvastatin (CRESTOR) 20 MG Tablet Take 1 tablet by mouth once daily 90 Tablet 1 3 03/04/19 25 Discontinu ed(Med List Clean Up) citalopram (CeleXA) 20 MG Tablet Take 20 mg by mouth daily. 03/04/19 25 Discontinu ed(Med List Clean Up) Active Problems Problem Noted Date Diagnosed Date Intentional acetaminophen overdose, initial enco unter 03/13/2023 Laceration of wrist 03/13/2023 Overview (03/13/2023): Bilateral deep lacerations running nearly the full width of each wrist. 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 12/09/2022 CVA (cerebral vascular accident) 01/24/2022 Fatigue 02/28/2020 Weight gain 02/28/2020 Liver dysfunction 02/28/2020 Skin lesion 10/11/2017 Lipoma of left upper extremity 10/11/2017 ETOH abuse Acute metabolic encephalopathy Elevated LFTs Hyperlipidemia Bipolar disorder Anxiety Resolved Problems Problem Noted Date Diagnosed Date Resolved Date Colitis 04/10/2023 04/10/2023 Alcohol withdrawal 06/08/2022 Encounters Date Type Department Care Team Description 03/04/2024 9:00 AM QUALITY ASSURANCE NURSE Office Visit [facility] - [facility]rology [facility] [address] [place] [phone] Gregorio Lemus MD Aneurysm of cavernous portion of right internal carotid artery (Primary Dx); Memory loss; ETOH abuse; Anxiety Discharge Disposition: Discharged to home or Selfcare 03/04/2024 Travel 12/12/2023 Telephone [facility] - Family Medicine [facility] [address] [place] [phone] Danelle Camp DO from Last 3 Months Immunizations Immunization Administration Dates Next Due Covid-19, Mrna, Lnp-s, PF, 1 00 mcg/0.5 mL Dose (Moderna) 06/22/2020,05/25/2020 Hepatitis A And Hepatitis B Vaccine 08/11/2009 Influenza Vaccine, Quadrivalent, PF 12/07,02/01/2022,11/14/2020,02/27,10/16/2015,12/19/2014 Influenza, Injectable, Quadrivalent 10/13/2016 Pneumococcal conjugate PCV20 , polysaccharide [id number] conjugate, adjuvant, PF 12/11/2022() TDAP Vaccine 03/13/2023,12/04/2022 Zoster Vaccine Recombinant 04/03/2021 Family History Medical History Relation Name Comments No Known Problems Brother No Known Problems Father Leukemia/Lymphoma Mother Breast Cancer Sister 1 Thyroid Disease Sister 1 Breast Cancer Sister 2 Thyroid Disease Sister 2 Relation Name Status Comments Brother Alive Father Alive Mother Sister 1 Alive Sister 2 Alive Social History Tobacco Use Types Packs/Day Years Used Date Smoking Tobacco: Never Smokeless Tobacco: Never Tobacco Cessation:Counseling Given: Not Answered Alcohol Use Standard Drinks/Week Comments Not Currently 0 (1 standard drink = 0.6 oz pur e alcohol) 1/5 whiskey daily [employer] Utilities Answer Date Recorded In the past 12 months has th e electric, gas, oil, or water company threatened to shut off services in your home? Patient declined 04/07/2023 Social Connection and Isolation Panel [NHANES] A nswer Date Recorded In a typical week, how many times do you talk on the phone with family, friends, or neighbors? Patient declined 04/07/2023 How often do you get togethe r with friends or relatives? Patient declined 04/07/2023 How often do you attend baptist or yarsanism serv ices? Patient declined 04/07/2023 Do you belong to any clubs o r organizations such as baptist groups, unions, fraternal or athletic groups, or [...] Total Score - Questions 1-9 0 04/06 [facility] - Occupational Stress Questionnaire Answer Date Recorded [...] place to sleep or slept in a usp (including now)? 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 Not on file Not on file Last Filed Vital Signs Vital Sign Reading Time Taken Comments Blood Pressure 120/82 03/04/2024 8:54 AM QUALITY ASSURANCE NURSE Pulse 96 03/04/2024 8:54 AM QUALITY ASSURANCE NURSE Temperature 36.3 ??C (97.4 ??F) 03/04/2024 8:54 AM CS T Respiratory Rate 17 03/04/2024 8:54 AM QUALITY ASSURANCE NURSE Oxygen Saturation 95% 03/04/2024 8:54 AM QUALITY ASSURANCE NURSE Inhaled Oxygen Concentration - - Weight 63.6 kg (140 lb 3.2 oz) 03/04/2024 8:54 A M QUALITY ASSURANCE NURSE Height 157.5 cm (5' 2 ) 03/04/2024 8:54 AM QUALITY ASSURANCE NURSE Body Mass Index 25.64 03/04/2024 8:54 AM QUALITY ASSURANCE NURSE Plan of Treatment Upcoming Encounters Date Type Department Care Team (Late st Contact Info) Description 09/03/2024 10:30 AM CDT Office Visit [facility] - Neurology [facility] [address] [place] [address] Gregorio Lemus MD [address] [place] [address] Health Maintenance Due Date Last Done Comments Pneumococcal Immunization (50+ years) (1 of 2 - PCV) 09/18/1979 Pap Smear 1981 Cervical Cancer Screening (CCS) 1990 HPV/Cotest 1990 Mammogram 2000 Colonoscopy 2005 Hepatitis B Immunization (2 of 3 - Hep B Twinrix 3-dose series) 09/08/2009 08/11/2009 Cologuard 2010 Colorectal Cancer Screening 03/14/2017 Immunochemical Fecal Occult Blood 03/13/2018 03/13/2017 Zoster Immunization (2 of 2) 05/29/2021 04/03/2021 Influenza Immunization (#1) 10/08/202312/07, 02/01/2022, 11/14/2020, Additional history exists SARS-COV-2 Immunization ( - season) 2023 06/22/2020, 05/25/2020 Td Immunization Every 10 Years (Adults With 1 Tdap) 03/13/2033 03/13/2023, 12/04/2022 Respiratory Syncytial Virus (RSV) Immunization (Adult) (1 - 1-dose 75+ series) 09/18/2035 Hepatitis C Virus (HCV) Screening Completed 04/28/2022 DTaP/Tdap/Td Immunization Discontinued 03/13/2023, Meningococcal Immunization (ACWY) Aged Out No longer eligible based on patient's age to complete this topic Rotavirus Immunization Aged Out No lo nger eligible based on patient's age to complete this topic Goals Goal Patient Goal Type Associated Problems Recent Progress Patient-Stated? Author Behavioral [facility] Behavioral Health On track( 024 2:09 PM CDT) Yes Wilbert Corley LCSW Note: I need to be able to maintain sobriety plus reduce my anxiety Goal/Objective: Reduce anxiety. Anticipated Time Frame for Goal Completion: 6 months Goal Reviewed with: patient Readiness to change: Thinking about making a change Department associated with goal: [facility] Steps to achieve goal: will identify at least two coping skills/activities/habits that have helped to manage anxiety in the past. will identify at least three new coping skills/activities/habits that may help to prevent and/or cope with anxiety. 3. will identify a plan to implement coping skills and follow this plan for two weeks and evaluate the impact on anxiety 4. Will attend individual and/or group therapy at least 1x/month at least 6 sessions Behavioral Health Behavioral Health On track( 024 2:13 PM CDT) No Wilbert Corley LCSW Note: Patient will be able to report decreased relapses on alcohol along with increased insight into triggers for relapse Goal/Objective: Decrease alcohol relapses. Anticipated Time Frame for Goal Completion: 6 months Goal Reviewed with: patient Readiness to change: Thinking about making a change Department associated with goal: [facility] Steps to achieve goal: will identify at least two coping skills/activities/habits that have helped to manage triggers for relapse in the past. will identify at least three triggers for relapse 3. will identify a plan to implement coping skills and follow this plan for two weeks and evaluate the impact on sobriety 4. Will attend individual and/or group therapy at least 1x/month at least 6 sessions 5. Will continue to attend [facility] individual and family therapy 6. Will continue with [facility] once weekly AA meetings, needs to obtain a sponsor Procedures Procedure Name Priority Date/Time Associated Diagnosis Comments HEPATITIS PANEL ACUTE (AHP) Routine 04/28/2022 6:14 PM CDT Elevated LFTs STOOL, OCCULT BLOOD, DIAGNOSTIC, VIA GUAIAC STAT 03/13/2017 3:00 PM QUALITY ASSURANCE NURSE from Last 3 Months or Most Recently Relevant to Health Maintenance Results * HEPATITIS PANEL ACUTE (AHP) (04/28/2022 6:14 PM CDT) HEPATITIS A IGM ANTIBODY NON DETECTED NON DETECTED [facility] [id number] B 04/29/2022 7:07 PM CDT [facility] Comment: IGM Antibodies to HAV not detected. ??Does not exclude early acute or recovered HAV infection. HEP B CORE AB (IGM) NON DETECTED NON DETECTED [facility] ARCH [id number] B 04/29/2022 7:07 PM CDT [facility] Comment:IGM anti-HBC not det ected. Does not exclude the possibility of exposure to or infection with HBV. HEPATITIS B SURFACE ANTIGEN NON DETECTED NON DETECTED [facility] ARCH [id number] B 04/29/2022 7:07 PM CDT [facility] Comment:A nonreactive test r esult does not exclude the possibility of exposure to or infection with Hepatitis B virus. A nonreactive test result in individuals with prior exposure to hepatitis B may be due to antigen levels below the detection limit of this assay or lack of antigen reactivity to the antibodies in this assay. hepatitis C antibody 0.06 <1 S/CO [facility] ARCH [id number] B 04/29/2022 7:07 PM CDT [facility] Comment: Signal/Cutoff ratio ??< 0.79 is Nondetected Signal/Cutoff ratio 0.80-0.99 is Grayzone Signal/Cutoff ratio > 0.99 is Detected Supplemental assays are recommended if signal/cutoff ratio is >/=1.00. ??Signal/cutoff ratio result >/= 5.00 is 97% predictive of positivity for recombinant immunoblot assay (RIBA) and will be reported to the [place] Department of Public Health as required. Blood Venipuncture / Unknown 04/28/2022 6:14 PM CDT 04/28/2022 6:18 PM CDT us Loyda Jackson BACKHAUL DRIVER, IMPLANT POLISHER HEMATOLOGY ORDERABLES Fi nal Result Performing Organization Address City/[facility]/ZIP Co de Phone Number [facility] [address] [place] [address], * Stool, Occult Blood, Diagnostic (03/13/2017 3:00 PM QUALITY ASSURANCE NURSE) OCCULT BLOOD DIAG, GI BLEED Negative Negative 03/13/2017 3:11 PM QUALITY ASSURANCE NURSE [facility] Stool specimen (specimen) STOOL SPECIMEN / Unknown Non-Phlebotomy Collection / Unknown 03/13/2017 3:00 PM QUALITY ASSURANCE NURSE 03/13/2017 3:04 PM QUALITY ASSURANCE NURSE Randy Hendrickson MD BODY FLUIDS & STOOLS ORDERA BLES Final Result Performing Organization Address City/[facility] Co de Phone Number [facility] [address] [place] [address] from Last 3 Months or Most Recently Relevant to Health Maintenance Insurance [place] Member Subscriber Plan / Payer (Ef fective 2023-Present) Name:Malu Wilburn Relation to Subscriber:Self Name:Malu Wilburn Payer ID:[id number] Group ID:Not on file Type:Not on file Address: [address] [employer]ALTHCARE [employer]ON Advance Directives * Full Code (Latest Code Status on File) Date Activated Date Inactivated Comments 04/08/2023 3:07 PM 04/10/2023 2:20 PM CPR-Full Treat ment: FULL ARREST: Attempt Resuscitation/CPR wit intubation and mechanical ventilation. PRE-ARREST: Use entire range of life support measures to stabilize the patient. * Full Code Date Activated Date Inactivated Comments 03/13/2023 10:34 AM 03/14/2023 9:22 PM CPR-Full Marina tment: FULL ARREST: Attempt Resuscitation/CPR wit intubation and mechanical ventilation. PRE-ARREST: Use entire range of life support measures to stabilize the patient. * Full Code Date Activated Date Inactivated Comments 12/09/2022 12:45 PM 12/12/2022 3:10 PM CPR-Full Tr eatment: FULL ARREST: Attempt Resuscitation/CPR wit intubation and mechanical ventilation. PRE-ARREST: Use entire range of life support measures to stabilize the patient. * Full Code Date Activated Date Inactivated Comments 01/24/2022 7:54 PM 01/25/2022 7:46 PM CPR-Full T reatment: FULL ARREST: Attempt Resuscitation/CPR wit intubation and mechanical ventilation. PRE-ARREST: Use entire range of life support measures to stabilize the patient. Care Teams Animal Caretaker Supervisor Relationship Specialty Start Date End Date Provider, None [place] PCP - General 10/29/23 Siri Henao, BACKHAUL DRIVER, ETL DATABASE DEVELOPER [address] [place] [address] Nurse Practitioner Advanced Practice Nurse 02/17/22 Gregorio Lemus MD [address] [place] [address] Consulting Physician Neurology 02/21/23
--- OUTSIDE RECORDS SUMMARY | 2024-03-08 13:15 | XMS_ITS | Encounter Summary ---
Author Organization [facility] Address [address] [place] [address] Phone Care Team Providers Care Junior Manufacturing Engineer Name Role Phone José Sagastume MD Primary Care Provider [phone] Loyda Jackson APRN, [facility] Primary Care Provider + Siri Henao APRN, PROFESSIONAL SERVICES CONSULTANT Unavailable + [phone] Gregorio Lemus MD Unavailable [phone] Loyda Jackson APRN, TELECOMMUNICATIONS NETWORK PLANNER Primary Care Provider + José Sagastume MD Primary Care Provider [phone] Loyda Jackson APRN, TELECOMMUNICATIONS NETWORK PLANNER Primary Care Provider + José Sagastume MD Primary Care Provider [phone] Loyda Jackson APRN, TELECOMMUNICATIONS NETWORK PLANNER Primary Care Provider + Provider, None Primary Care Provider Unavailabl e Loyda Jackson APRN, TELECOMMUNICATIONS NETWORK PLANNER Primary Care Provider + José Sagastume MD Primary Care Provider [phone] Provider, None Primary Care Provider Unavailabl e Reason for Visit * Reason Comments Medication Refill Encounter Details Date Type Department Care Team (Late st Contact Info) Description 09/21/2020 [facility]ill [facility] [address] [facility] [place] [address] José Sagastume MD [address] [place] [address] Medication Refill Social History Tobacco Use Types Packs/Day Years Used Date Smoking Tobacco: Never Smokeless Tobacco: Never Alcohol Use Standard Drinks/Week Comments Yes 0 (1 standard drink = 0.6 oz pur e alcohol) PHQ-2 Answer Date Recorded Total Score - Questions 1-9 0 03/09 Comments No Sex and Gender Information Value Date Recorded Sex Assigned at Female 09/19/2022 10:32 AM CDT Legal Sex Female 10:55 PM CDT Gender Identity Female 09/19/2022 10:32 AM CDT Sexual Orientation Not on file 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 Requested Prescriptions Pending Prescriptions Disp Refills ergocalciferol (VITAMIN D) 03322 UNIT Capsule [Pharmacy Med Name: VITAMIN D2 (ERGO) 1.25MG CAP] 12 Capsule 0 Sig: Take 1 capsule by mouth once a week [facility] Off-Protocol Failed - 09/22/2020 11:11 AM Failed - Medication not assigned to a protocol, review manually. Passed - Valid encounter within last 12 months Past Office Visits Recent Outpatient Visits 5 months ago Shortness of breath [facility] - Family Medicine - José Melvin MD 6 months ago Visit for annual health examination (Adult) [facility] - Family Medicine - José Melvin MD Upcoming Appointments Future Appointments In 1 month Gregorio Lemus MD [facility] - Neurology [facility] HYDRAULIC BLOCKER - Recent and Past Visits Recent Visits Date Type Provider Dept 03/27/20 Office Visit José Sagastume MD [facility] 02/28/20 Office Visit José Sagastume MD [facility] Showing recent visits within past 460 days with a meds authorizing provider and meeting all other requirements Future Appointments No visits were found meeting these conditions. Showing future appointments within next 90 days with a meds authorizing provider and meeting all other requirements Vitamin Supplements (Adult) Protocol Passed - 09/22/2020 11:11 AM Passed - Visit with relevant provider in past 12 months or upcoming 90 days Recent Visits Date Type Provider Dept 03/27/20 Office Visit José Sagastume MD [facility] 02/28/20 Office Visit José Sagastume MD [facility] Showing recent visits within past 365 days and meeting all other requirements Future Appointments No visits were found meeting these conditions. Showing future appointments within next 90 days and meeting all other requirements Passed - Vitamin D less than 1.25mg documented in this encounter Plan of Treatment Upcoming Encounters Date Type Department Care Team (Late st Contact Info) Description 09/03/2024 10:30 AM CDT Office Visit [facility] - Neurology [facility] [address] [place] [address] Gregorio Lemus MD [address] [place] [address] documented as of this encounter Visit Diagnoses Not on filedocumented in this encounter Additional Health Concerns Infection Onset Date Last Indicated Resolved Time COVID - 19 01/22/2022 01/22/2022 01/25/2022 8:35 AM BLOW OFF WORKER COVID - 19 Confirmed 02/21/2022 02/21/2022 023 12:16 AM BLOW OFF WORKER COVID - 19 04/06/2023 04/06/2023 04/16/2023 12:1 6 AM BLOW OFF WORKER C. difficile Rule-Out 04/08/2023 04/08/20232023 2:20 PM BLOW OFF WORKER C. difficile Rule-Out 04/19/2023 04/20/20232023 9:22 AM CDT COVID - 19 07/06/2023 07/06/2023 07/06/2023 4:44 PM CDT Assessment Noted Time PHQ-9 Depression Total Score: 0 03/27/19 3:00 PM BLOW OFF WORKER documented as of this encounter Care Teams Junior Manufacturing Engineer Relationship Specialty Start Date End Date José Sagastume MD PCP - General Family Medicine 03/02/20 03/12/23 Loyda Jackson APRN, TELECOMMUNICATIONS NETWORK PLANNER [address] [place] [address] PCP - General Advanced Practice Nurse 03/13/23 04/18/23 Loyda Jackson APRN, TELECOMMUNICATIONS NETWORK PLANNER [address] [place] [address] PCP - General Advanced Practice Nurse 04/19/23 05/08/23 José Sagastume MD PCP - General Family Medicine 05/09/23 05/21/23 Loyda Jackson APRN, TELECOMMUNICATIONS NETWORK PLANNER [address] [place] [address] PCP - General Advanced Practice Nurse 05/22/23 05/25/23 José Sagastume MD PCP - General Family Medicine 05/26/23 05/27/23 Loyda Jackson APRN, TELECOMMUNICATIONS NETWORK PLANNER [address] [place] [address] PCP - General Advanced Practice Nurse 05/28/23 06/15/23 Provider, None [place] PCP - General 06/16/23 07/05/23 Loyda Jackson, JUNIOR SOFTWARE DEVELOPER, TELECOMMUNICATIONS NETWORK PLANNER [address] [place] [address] PCP - General Advanced Practice Nurse 07/06/23 07/10/23 José Sagastume MD PCP - General Family Medicine 07/11/23 10/11/23 Provider, None [place] PCP - General 10/29/23 Siri Henao, JUNIOR SOFTWARE DEVELOPER, PROFESSIONAL SERVICES CONSULTANT [address] [place] [address] Nurse Practitioner Advanced Practice Nurse 02/17/22 Gregorio Lemus MD [address] [place] [address] Consulting Physician Neurology 02/21/23 documented as of this encounter
--- OUTSIDE RECORDS SUMMARY | 2024-03-08 13:15 | XMS_ITS | Encounter Summary ---
Author Organization [facility] Address [address] [place] [address] Phone Care Team Providers Care Sack Cleaner Name Role Phone José Sagastume MD Primary Care Provider [phone] Loyda Jackson APRN, [facility] Primary Care Provider + Siri Henao APRN, REVENUE INTEGRITY ANALYST Unavailable + [phone] Gregorio Lemus MD Unavailable +[phone] Loyda Jackson APRN, CARRIER OPERATOR Primary Care Provider + José Sagastume MD Primary Care Provider [phone] Loyda Jackson APRN, CARRIER OPERATOR Primary Care Provider + José Sagastume MD Primary Care Provider [phone] Loyda Jackson APRN, CARRIER OPERATOR Primary Care Provider + Provider, None Primary Care Provider Unavailabl e Loyda Jackson APRN, CARRIER OPERATOR Primary Care Provider + José Sagastume MD Primary Care Provider [phone] Provider, None Primary Care Provider Unavailabl e Reason for Visit * Reason Comments Medication Refill Encounter Details Date Type Department Care Team (Late st Contact Info) Description 02/13/2023 Refill [facility] - [facility] [address] [place] [address] Loyda Jackson, SECRETARY BOARD OF COMMISSIONERS, CARRIER OPERATOR [address] [place] [address] Medication Refill Social History Tobacco Use Types [...] 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 Requested Prescriptions Pending Prescriptions Disp Refills citalopram (CeleXA) 20 MG Tablet [Pharmacy Med Name: Citalopram Hydrobromide 20 MG Oral Tablet] 90 Tablet 1 Sig: Take 1 tablet by mouth once daily Citalopram (Celexa) (6 Month Refill Only) Protocol Failed - 02/13/2023 9:18 AM Failed - Patient has established therapy with Citalopram for at least 6 months Passed - Citalopram dose is less than or equal to 40mg / day Passed - Visit with relevant provider in past 6 months or upcoming 90 days Recent Visits Date Type Provider Dept 01/18/23 Office Visit Loyda Jackson APRN, [facility] 12/16/22 Office Visit Loyda Jackson APRN, [facility] 11/28/22 Office Visit Loyda Jackson APRN, [facility] 11/21/22 Office Visit Loyda Jackson APRN, CNP [facility] 09/20/22 Telemedicine Loyda Jackson APRN, CNP [facility] Showing recent visits within past 182 days and meeting all other requirements Future Appointments Date Type Provider Dept 04/19/23 Appointment Loyda Jackson APRN, CNP [facility] Showing future appointments within next 90 days and meeting all other requirements Passed - Has an encounter in the past 6 months with a depression, anxiety, adjustment disorder, OCD, or PTSD visit diagnosis CAL ACCOUNTS RECEIVABLE SPECIALIST documented in this encounter Plan of Treatment Upcoming Encounters Date Type Department Care Team (Late st Contact Info) Description 09/03/2024 10:30 AM CDT Office Visit [facility] - [facility] [address] [place] [address] Gregorio Lemus MD [address] [place] [address] documented as of this encounter Visit Diagnoses Diagnosis Anxiety Anxiety state, unspecified documented in this encounter Additional Health Concerns Infection Onset Date Last Indicated Resolved Time COVID - 19 04/06/2023 04/06/2023 04/16/2023 12:1 6 AM MEDICAL ACCOUNTS RECEIVABLE SPECIALIST C. difficile Rule-Out 04/08/2023 04/08/20232023 2:20 PM MEDICAL ACCOUNTS RECEIVABLE SPECIALIST C. difficile Rule-Out 04/19/2023 04/20/20232023 9:22 AM CDT COVID - 19 07/06/2023 07/06/2023 07/06/2023 4:44 PM CDT Assessment Noted Time PHQ-9 Depression Total Score: 0 04/23/19 22 4:00 PM CDT documented as of this encounter Care Teams Sack Cleaner Relationship Specialty Start Date End Date José Sagastume MD PCP - General Family Medicine 03/02/20 03/12/23 Loyda Jackson APRN, [facility] [address] [place] [address] PCP - General Advanced Practice Nurse 03/13/23 04/18/23 Loyda Jackson, SECRETARY BOARD OF COMMISSIONERS, CARRIER OPERATOR [address] [place] [address] PCP - General Advanced Practice Nurse 04/19/23 05/08/23 José Sagastume MD PCP - General Family Medicine 05/09/23 05/21/23 Loyda Jackson, SECRETARY BOARD OF COMMISSIONERS, CARRIER OPERATOR [facility] [place] [address] PCP - General Advanced Practice Nurse 05/22/23 05/25/23 José Sagastume MD PCP - General Family Medicine 05/26/23 05/27/23 Loyda Jackson, SECRETARY BOARD OF COMMISSIONERS, CARRIER OPERATOR [address] [place] [address] PCP - General Advanced Practice Nurse 05/28/23 06/15/23 Provider, None [place] PCP - General 06/16/23 07/05/23 Loyda Jackson, SECRETARY BOARD OF COMMISSIONERS, CARRIER OPERATOR [address] [place] [address] PCP - General Advanced Practice Nurse 07/06/23 07/10/23 José Sagastume MD PCP - General Family Medicine 07/11/23 10/11/23 Provider, None [place] PCP - General 10/29/23 Siri Henao APRN, REVENUE INTEGRITY ANALYST [address] [place] [address] Nurse Practitioner Advanced Practice Nurse 02/17/22 Gregorio Lemus MD [address] [place] [address] Consulting Physician Neurology 02/21/23 documented as of this encounter
--- OUTSIDE RECORDS SUMMARY | 2024-03-08 13:15 | XMS_ITS | Clinical Summary ---
Author Organization [facility] Address [address] [place] [address] Care Team Providers Care Electrotyper Name Role Phone Unavailable Primary Care Provider Unavailabl e Social History Tobacco Use Types Packs/Day Years Used Date Smoking Tobacco: Never Assessed Comments Unknown Sex and Gender Information Value Date Recorded Sex Assigned at Not on file Legal Sex Female 4:12 AM COMMITTEE MEMBER Gender Identity Not on file Sexual Orientation Not on file Plan of Treatment Health Maintenance Due Date Last Done Comments DTAP/TDAP/TD VACCINES (1 - Tdap) 09/18/1979 CERVICAL CANCER SCREENING 1990 BREAST CANCER SCREENING 2000 COLORECTAL SCREENING 2005 Colorectal Cancer Screening 2005 FIT-DNA Q 3 years 2005 FIT/FOBT Q 1 year 2005 Flex Sig/CT Colonography Q 5 years 2005 ZOSTER VACCINE (1 of 2) 2010 INFLUENZA VACCINE (#1) 2023 RSV VACCINE (60+ or ) (1 - 1-dose 75+ series) 09/18/2035 Insurance [facility] MEDICAID [facility] Address: [facility] [id number] [place] [address]
--- OUTSIDE RECORDS SUMMARY | 2024-03-08 13:15 | XMS_ITS | Encounter Summary ---
Author Organization [facility] Address [address] [place] [address] Phone Care Team Providers Care Gasoline Engine Assembler Name Role Phone José Sagastume MD Primary Care Provider [phone] Loyda Jackson APRN, [facility] Primary Care Provider + Siri Henao APRN, EMPLOYMENT SERVICE SPECIALIST Unavailable + [phone] Gregorio Lemus MD Unavailable [phone] Loyda Jackson APRN, LABOR ECONOMICS TEACHER Primary Care Provider + José Sagastume MD Primary Care Provider [phone] Loyda Jackson APRN, LABOR ECONOMICS TEACHER Primary Care Provider + José Sagastume MD Primary Care Provider [phone] Loyda Jackson APRN, LABOR ECONOMICS TEACHER Primary Care Provider + Provider, None Primary Care Provider Unavailabl e Loyda Jackson APRN, LABOR ECONOMICS TEACHER Primary Care Provider + José Sagastume MD Primary Care Provider [phone] Provider, None Primary Care Provider Unavailabl e Reason for Visit * Reason Comments Medication Refill Encounter Details Date Type Department Care Team (Late st Contact Info) Description 01/01/2023 Refill [facility] - Family Medicine [facility] [address] [place] [address] José Sagastume MD [address] [place] [address] Medication Refill Social History Tobacco Use Types [...] 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 No / Unsure 12/16/2022 9:50 AM STORAGE BATTERY INSPECTOR AND TESTER documented as of this encounter Miscellaneous Notes * Telephone Encounter - Alanna Alfredo RN - 01/02/2023 12:30 PM CST Last Vitamin D level 04/22/22 - 43 Per nursing clinical judgement, provider to review and approve the medication(s) order(s) if appropriate. Requested Prescriptions Pending Prescriptions Disp Refills ergocalciferol (VITAMIN D) 91364 UNIT Capsule [Pharmacy Med Name: Vitamin D (Ergocalciferol) 1.25 MG (03150 UT) Oral Capsule] 12 Capsule 0 Sig: Take 1 capsule by mouth once a week Vitamin Supplements (Adult) Protocol Passed - 01/01/2023 12:43 PM Passed - Visit with relevant provider in past 12 months or upcoming 90 days Recent Visits Date Type Provider Dept 12/16/22 Office Visit Loyda Jackson APRN, [facility] 11/28/22 Office Visit Loyda Jackson APRN, [facility] 11/21/22 Office Visit Loyda Jackson, FILM CLEANER, [facility] 09/20/22 Telemedicine Loyda Jackson FILM CLEANER, [facility] 07/11/22 Office Visit Loyda Jackson FILM CLEANER, LABOR ECONOMICS TEACHER [facility] 06/13/22 Office Visit Loyda Jackson FILM CLEANER, [facility] 04/22/22 Office Visit Loyda Jackson FILM CLEANER, [facility] 04/06/22 Office Visit Loyda Jackson FILM CLEANER, LABOR ECONOMICS TEACHER [facility] 03/11/22 Office Visit [facility]22 Office Visit Gunnar Velez MD [facility] Showing recent visits within past 365 days and meeting all other requirements Future Appointments Date Type Provider Dept 01/27/23 Appointment Loyda Jackson APRN, LABOR ECONOMICS TEACHER [facility] Showing future appointments within next 90 days and meeting all other requirements Passed - Vitamin D dose not greater than 1.25mg AGE BATTERY INSPECTOR AND TESTER documented in this encounter Plan of Treatment Upcoming Encounters Date Type Department Care Team (Late st Contact Info) Description 09/03/2024 10:30 AM CDT Office Visit [facility] - Neurology [facility] [address] [place] [address] Gregorio Lemus MD [address] [place] [address] documented as of this encounter Visit Diagnoses Not on filedocumented in this encounter Additional Health Concerns Infection Onset Date Last Indicated Resolved Time COVID - 19 04/06/2023 04/06/2023 04/16/2023 12:1 6 AM STORAGE BATTERY INSPECTOR AND TESTER C. difficile Rule-Out 04/08/2023 04/08/20232023 2:20 PM STORAGE BATTERY INSPECTOR AND TESTER C. difficile Rule-Out 04/19/2023 04/20/20232023 9:22 AM CDT COVID - 19 07/06/2023 07/06/2023 07/06/2023 4:44 PM CDT Assessment Noted Time PHQ-9 Depression Total Score: 0 04/23/19 22 4:00 PM CDT documented as of this encounter Care Teams Gasoline Engine Assembler Relationship Specialty Start Date End Date José Sagastume MD PCP - General Family Medicine 03/02/20 03/12/23 Loyda Jackson APRN, LABOR ECONOMICS TEACHER [address] [place] [address] PCP - General Advanced Practice Nurse 03/13/23 04/18/23 Loyda Jackson APRN, LABOR ECONOMICS TEACHER [address] [place] [address] PCP - General Advanced Practice Nurse 04/19/23 05/08/23 José Sagastume MD PCP - General Family Medicine 05/09/23 05/21/23 Loyda Jackson APRN, LABOR ECONOMICS TEACHER [facility] [place] [address] PCP - General Advanced Practice Nurse 05/22/23 05/25/23 José Sagastume MD PCP - General Family Medicine 05/26/23 05/27/23 Loyda Jackson APRN, LABOR ECONOMICS TEACHER [address] [place] [address] PCP - General Advanced Practice Nurse 05/28/23 06/15/23 Provider, Elian [place] PCP - General 06/16/23 07/05/23 Loyda Jackson, FILM CLEANER, LABOR ECONOMICS TEACHER [address] [place] [address] PCP - General Advanced Practice Nurse 07/06/23 07/10/23 José Sagastume MD PCP - General Family Medicine 07/11/23 10/11/23 Provider, None [place] PCP - General 10/29/23 Siri Henao, FILM CLEANER, EMPLOYMENT SERVICE SPECIALIST [address] [place] [address] Nurse Practitioner Advanced Practice Nurse 02/17/22 Gregorio Lemus MD [address] [place] [address] Consulting Physician Neurology 02/21/23 documented as of this encounter
--- OUTSIDE RECORDS SUMMARY | 2024-03-08 13:15 | XMS_ITS | Encounter Summary ---
Author Organization [facility] Address [address] [place] [address] Phone Care Team Providers Care Digital Tech Name Role Phone José Sagastume MD Primary Care Provider [phone] Loyda Jackson APRN, [facility] Primary Care Provider + Siri Henao APRN, MACHINE CLERICAL VERIFIER Unavailable + [phone] Gregorio Lemus MD Unavailable [phone] Loyda Jackson APRN, PAYROLL PROFESSIONAL Primary Care Provider + José Sagastume MD Primary Care Provider [phone] Loyda Jackson APRN, PAYROLL PROFESSIONAL Primary Care Provider + José Sagastume MD Primary Care Provider [phone] Loyda Jackson APRN, PAYROLL PROFESSIONAL Primary Care Provider + Provider, None Primary Care Provider Unavailabl e Loyda Jackson APRN, PAYROLL PROFESSIONAL Primary Care Provider + José Sagastume MD Primary Care Provider [phone] Provider, None Primary Care Provider Unavailabl e Reason for Visit * Reason Comments Medication Refill Encounter Details Date Type Department Care Team (Late st Contact Info) Description 12/21/2020 Refill [facility] - [facility] [facility] [address] José Sagastume MD [address] [place] [address] Medication Refill Social History Tobacco Use Types [...] 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 Requested Prescriptions Pending Prescriptions Disp Refills ergocalciferol (VITAMIN D) 64898 UNIT Capsule [Pharmacy Med Name: VITAMIN D2 (ERGO) 1.25MG CAP] 12 Capsule 0 Sig: Take 1 capsule by mouth once a week Vitamin Supplements (Adult) Protocol Failed - 12/21/2020 5:57 PM Failed - Vitamin D less than 1.25mg Passed - Visit with relevant provider in past 12 months or upcoming 90 days Recent Visits Date Type Provider Dept 03/27/20 Office Visit José Sagastume MD [facility] 02/28/20 [facility] visits within past 365 days and meeting all other requirements Future Appointments No visits were found meeting these conditions. Showing future appointments within next 90 days and meeting all other requirements [facility] Off-Protocol Failed - 12/21/2020 5:57 PM Failed - Medication not assigned to a protocol, review manually. Passed - Valid encounter within last 12 months Past Office Visits Recent Outpatient Visits 9 months ago Shortness of breath [facility] - Family Medicine - José Melvin MD 9 months ago Visit for annual health examination (Adult) [facility] José Melvin MD Upcoming Appointments ENERGY ADMINISTRATOR - Recent and Past Visits Recent Visits Date Type Provider Dept 03/27/20 Office Visit José Sagastume MD [facility] [place] 02/28/20 Office Visit José Sagastume MD [facility] Showing recent visits within past 460 days with a meds authorizing provider and meeting all other requirements Future Appointments No visits were found meeting these conditions. Showing future appointments within next 90 days with a meds authorizing provider and meeting all other requirements DING CONSTRUCTION SUPERVISOR documented in this encounter Plan of Treatment Upcoming Encounters Date Type Department Care Team (Late st Contact Info) Description 09/03/2024 10:30 AM CDT Office Visit [facility] [address] [place] [address] Gregorio Lemus MD [address] [place] [address] documented as of this encounter Visit Diagnoses Not on filedocumented in this encounter Additional Health Concerns Infection Onset Date Last Indicated Resolved Time COVID - 19 01/22/2022 01/22/2022 01/25/2022 8:35 AM BUILDING CONSTRUCTION SUPERVISOR COVID - 19 Confirmed 02/21/2022 02/21/2022 023 12:16 AM BUILDING CONSTRUCTION SUPERVISOR COVID - 19 04/06/2023 04/06/2023 04/16/2023 12:1 6 AM BUILDING CONSTRUCTION SUPERVISOR C. difficile Rule-Out 04/08/2023 04/08/20232023 2:20 PM BUILDING CONSTRUCTION SUPERVISOR C. difficile Rule-Out 04/19/2023 04/20/20232023 9:22 AM CDT COVID - 19 07/06/2023 07/06/2023 07/06/2023 4:44 PM CDT Assessment Noted Time PHQ-9 Depression Total Score: 0 03/27/19 21 3:00 PM BUILDING CONSTRUCTION SUPERVISOR documented as of this encounter Care Teams Digital Tech Relationship Specialty Start Date End Date José Sagastume MD PCP - General Family Medicine 03/02/20 03/12/23 Loyda Jackson APRN, PAYROLL PROFESSIONAL [address] [place] [address] PCP - General Advanced Practice Nurse 03/13/23 04/18/23 Loyda Jackson APRN, PAYROLL PROFESSIONAL [address] [place] [address] PCP - General Advanced Practice Nurse 04/19/23 05/08/23 José Sagastume MD PCP - General Family Medicine 05/09/23 05/21/23 Loyda Jackson APRN, PAYROLL PROFESSIONAL [address] [place] [address] PCP - General Advanced Practice Nurse 05/22/23 05/25/23 José Sagastume MD PCP - General Family Medicine 05/26/23 05/27/23 Loyda Jackson APRN, PAYROLL PROFESSIONAL [address] [place] [address] PCP - General Advanced Practice Nurse 05/28/23 06/15/23 Provider, None [place] PCP - General 06/16/23 07/05/23 Loyda Jackson APRN, PAYROLL PROFESSIONAL [address] [place] [address] PCP - General Advanced Practice Nurse 07/06/23 07/10/23 José Sagastume MD PCP - General Family Medicine 07/11/23 10/11/23 Provider, None [place] PCP - General 10/29/23 Siri Henao, MASON TENDER, MACHINE CLERICAL VERIFIER [address] [place] [address] Nurse Practitioner Advanced Practice Nurse 02/17/22 Gregorio Lemus MD [address] [place] [address] Consulting Physician Neurology 02/21/23 documented as of this encounter
--- OUTSIDE RECORDS SUMMARY | 2024-03-08 13:15 | XMS_ITS | Encounter Summary ---
Author Organization [facility] Address [address] [place] [address] Phone Care Team Providers Care Dog Or Animal Sitter Name Role Phone José Sagastume MD Primary Care Provider [phone] Loyda Jackson APRN, [facility] Primary Care Provider + Siri Henao APRN, PORCELAIN SLUSHER Unavailable + [phone] Gregorio Lemus MD Unavailable [phone] Loyda Jackson APRN, BUSINESS DEVELOPER Primary Care Provider + José Sagastume MD Primary Care Provider [phone] Loyda Jackson APRN, BUSINESS DEVELOPER Primary Care Provider + José Sagastume MD Primary Care Provider [phone] Loyda Jackson APRN, BUSINESS DEVELOPER Primary Care Provider + Provider, None Primary Care Provider Unavailabl e Loyda Jackson APRN, BUSINESS DEVELOPER Primary Care Provider + José Sagastume MD Primary Care Provider [phone] Provider, None Primary Care Provider Unavailabl e Reason for Visit * Reason Comments Medication Refill Encounter Details Date Type Department Care Team (Late st Contact Info) Description 12/25/2022 Refill [facility] - Family [facility] [address] [facility] [address] Loyda Jackson, PHOTOVOLTAIC TESTING TECHNICIAN, BUSINESS DEVELOPER [address] [place] [address] Medication Refill Social History Tobacco Use Types [...] 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 No / Unsure 12/16/2022 9:50 AM GRAIN ELEVATOR MAN documented as of this encounter Miscellaneous Notes * Telephone Encounter - Alanna Alfredo RN - 12/26/2022 10:22 AM CST Last Rx by hospitalist Medication failed the protocol, provider to review and approve the medication order if appropriate. Requested Prescriptions Pending Prescriptions Disp Refills chlordiazePOXIDE (LIBRIUM) 25 MG Capsule [Pharmacy Med Name: chlordiazePOXIDE HCl 25 MG Oral Capsule] 60 Capsule 0 Sig: TAKE 2 CAPSULES BY MOUTH THREE TIMES DAILY NEEDED FOR WITHDRAWAL OR ANXIETY FOR UP TO 10 DAYS. Not Delegated - Benzodiazepines Protocol Failed - 12/25/2022 4:06 PM Failed - This refill cannot be delegated Passed - Visit with relevant provider in past 12 months or upcoming 90 days Recent Visits Date Type Provider Dept 12/16/22 Office Visit Loyda Jackson APRN, BUSINESS DEVELOPER [facility] 11/28/22 Office Visit Loyda Jackson APRN, BUSINESS DEVELOPER [facility] 11/21/22 Office Visit Loyda Jackson, PHOTOVOLTAIC TESTING TECHNICIAN, [facility] 09/20/22 Telemedicine Loyda Jackson PHOTOVOLTAIC TESTING TECHNICIAN, BUSINESS DEVELOPER [facility] 07/11/22 Office Visit Loyda Jackson PHOTOVOLTAIC TESTING TECHNICIAN, BUSINESS DEVELOPER [facility] 06/13/22 Office Visit Loyda Jackson PHOTOVOLTAIC TESTING TECHNICIAN, ARACELI [facility] 04/22/22 Office Visit Loyda Jackson PHOTOVOLTAIC TESTING TECHNICIAN, ARACELI [facility] 04/06/22 Office Visit Loyda Jackson PHOTOVOLTAIC TESTING TECHNICIAN, BUSINESS DEVELOPER [facility] 03/11/22 Office [facility] Office Visit Gunnar Velez MD [facility] Showing recent visits within past 365 days and meeting all other requirements Future Appointments Date Type Provider Dept 01/27/23 Appointment Loyda Jacskon APRN, BUSINESS DEVELOPER [facility] Showing future appointments within next 90 days and meeting all other requirements N ELEVATOR MAN documented in this encounter Plan of Treatment Upcoming Encounters Date Type Department Care Team (Late st Contact Info) Description 09/03/2024 10:30 AM CDT Office Visit [facility] - Neurology [facility] [address] [place] [address] Gregorio Lemus MD [address] [place] [address] documented as of this encounter Visit Diagnoses Diagnosis Alcohol withdrawal syndrome without complication (HCC) documented in this encounter Additional Health Concerns Infection Onset Date Last Indicated Resolved Time COVID - 19 04/06/2023 04/06/2023 04/16/2023 12:1 6 AM GRAIN ELEVATOR MAN C. difficile Rule-Out 04/08/2023 04/08/20232023 2:20 PM GRAIN ELEVATOR MAN C. difficile Rule-Out 04/19/2023 04/20/20232023 9:22 AM CDT COVID - 19 07/06/2023 07/06/2023 07/06/2023 4:44 PM CDT Assessment Noted Time PHQ-9 Depression Total Score: 0 04/23/19 4:00 PM CDT documented as of this encounter Care Teams Dog Or Animal Sitter Relationship Specialty Start Date End Date José Sagastume MD PCP - General Family Medicine 03/02/20 03/12/23 Loyda Jackson APRN, BUSINESS DEVELOPER [address] [place] [address] PCP - General Advanced Practice Nurse 03/13/23 04/18/23 Loyda Jackson APRN, BUSINESS DEVELOPER [address] [place] [address] PCP - General Advanced Practice Nurse 04/19/23 05/08/23 José Sagastume MD PCP - General Family Medicine 05/09/23 05/21/23 Loyda Jackson APRN, BUSINESS DEVELOPER [address] [place] [address] PCP - General Advanced Practice Nurse 05/22/23 05/25/23 José Sagastume MD PCP - General Family Medicine 05/26/23 05/27/23 Loyda Jackson APRN, BUSINESS DEVELOPER [address] [place] [address] PCP - General Advanced Practice Nurse 05/28/23 06/15/23 Provider, [facility] PCP - General 06/16/23 07/05/23 Loyda Jackson, PHOTOVOLTAIC TESTING TECHNICIAN, BUSINESS DEVELOPER [address] [place] [address] PCP - General Advanced Practice Nurse 07/06/23 07/10/23 José Sagastume MD PCP - General Family Medicine 07/11/23 10/11/23 Provider, None [place] PCP - General 10/29/23 Siri Henao PHOTOVOLTAIC TESTING TECHNICIAN, PORCELAIN SLUSHER [address] [place] [address] Nurse Practitioner Advanced Practice Nurse 02/17/22 Gregorio Lemus MD [address] [place] [address] Consulting Physician Neurology 02/21/23 documented as of this encounter
--- OUTSIDE RECORDS SUMMARY | 2024-03-08 13:15 | XMS_ITS | Encounter Summary ---
Author Organization [facility] Address [address] [place] [address] Care Team Providers Care Oil Operator Name Role Phone Kellen Weaver MD Primary Care Provider [phone] Encounter Details Date Type Department Care Team (Latest Contact Info) Description 10/16/2005 Outpatient Historical [facility] OP NEUROLOGY Kellen Weaver MD [address] [place] [address] Unspecified Migraine without Mention of Intractable Migraine (Primary Dx) Social History Tobacco Use Types Packs/Day Years Used Date Smoking Tobacco: Never Assessed Comments Unknown Sex and Gender Information Value Date Recorded Sex Assigned at Not on file Legal Sex Female 4:12 AM BROKERAGE COORDINATOR Gender Identity Not on file Sexual Orientation Not on file documented as of this encounter Plan of Treatment Not on file documented as of this encounter Visit Diagnoses Diagnosis Migraine, unspecified, without mention of intractable migraine without mention of status migrainosus- Primary documented in this encounter Care Teams Oil Operator Relationship Specialty Start Date End Date Kellen Weaver MD [address] [place] [address] PCP - General 09/14/05 11/17/19 documented as of this encounter
--- OUTSIDE RECORDS SUMMARY | 2024-03-08 13:15 | XMS_ITS | Referral Summary ---
Author Organization [facility] [address] Address [address] [place] [address] Care Team Providers Care Strike Operations Officer Name Role Phone Loyda aJckson Primary Care Provider [phone] Allergies Active Allergy Reactions Criticality Noted Date [...] anxiety 30 capsule 1 3 Active multivit kmujpsvi-sxuj-K A-calcium (THERA-M) 9 mg iron-400 mcg tabletIndicatio [...] (09/08/2021): Added automatically from request for surgery [id number] Fatigue 02/28/2020 Liver dysfunction 02/28/2020 Weight gain [...] Preservative Free, Intramuscular 11/14/2020,02/28/2020,10/16/2015,12/19 ZOSTER Recombinant 04/03/2021 Social History Tobacco Use Types Packs/Day Years [...] family, friends, or neighbors? Twice a week 05/04/20 23 How often do you get togethe r with friends or relatives? Twice a week 06/09/2022 How often do you attend chur ch or druze services? 1 to 4 times per year 06/09/2022 Do you belong to any clubs o r organizations such as pentecostal groups, unions, fraternal or athletic groups, or [...] money to buy more. Never true 06/10/19 Within the past 12 months, t he food you bought just didn't last and you didn't have money to get more. Never true 06/09/2022 PRAPARE - Transportation Answer Date Re corded In the past 12 months, has l ack of transportation kept you from medical appointments or from getting medications? No 05/2022 In the past 12 months, has [...] place to sleep or slept in a long-term (including now)? No 06/09/2022 Personal Safety Answer Date Recorded Have you ever been in or are you currently in a harmful physical or emotional relationship or is someone making you feel afraid or unsafe? Denies 06/24/2023 Comments No Sex and Gender Information Value Date Recorded Sex Assigned at Not on file Legal Sex Female 11:56 PM SHIRT BANDER Gender Identity Not on file Sexual Orientation Not on file Last Filed Vital Signs [...] 06/24/2023 9:07 AM CDT Plan of Treatment Not on file Insurance [employer] [facility]NA [facility] [employer] [facility] IDPA Advance Directives For more information, please contact: [phone] * Full Code (Latest Code Status on File) Date Activated Date Inactivated Comments 06/08/2022 7:40 PM 06/11/2022 3:29 PM * Full Code Date Activated Date Inactivated Comments 06/08/2022 4:39 PM 06/08/2022 7:40 PM Care Teams Strike Operations Officer Relationship Specialty Start Date End Date Loyda Jackson PCP - General Maintenance Of Way Superintendent 03/04/23
--- OUTSIDE RECORDS SUMMARY | 2024-03-08 13:15 | XMS_ITS | Encounter Summary ---
Author Organization [facility] Address [address] [place] [address] Phone Care Team Providers Care Coo & Co Founder Name Role Phone José Sagastume MD Primary Care Provider Loyda Jackson APRN, [facility] Primary Care Provider + Siri Henao APRN, PUDDLER PILE DRIVING Unavailable + [phone] Gregorio Lemus MD Unavailable +[phone] Loyda Jackson APRN, GAS ENGINE REPAIRER Primary Care Provider + José Sagastume MD Primary Care Provider [phone] Loyda Jackson APRN, GAS ENGINE REPAIRER Primary Care Provider + José Sagastume MD Primary Care Provider [phone] Loyda Jackson APRN, GAS ENGINE REPAIRER Primary Care Provider + Provider, None Primary Care Provider Unavailabl e Loyda Jackson APRN, GAS ENGINE REPAIRER Primary Care Provider + José Sagastume MD Primary Care Provider [phone] Provider, None Primary Care Provider Unavailabl e Reason for Visit * Reason Comments Medication Refill Encounter Details Date Type Department Care Team (Late st Contact Info) Description 02/19/2023 Refill [facility] - Family [facility] [address] [place] [address] José Sagastume MD [address] [place] [address] Medication Refill Social History Tobacco Use Types [...] 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 Requested Prescriptions Pending Prescriptions Disp Refills chlordiazePOXIDE (LIBRIUM) 25 MG Capsule [Pharmacy Med Name: chlordiazePOXIDE HCl 25 MG Oral Capsule] 60 Capsule 0 Sig: TAKE 2 CAPSULES BY MOUTH THREE TIMES DAILY NEEDED FOR WITHDRAWL OR ANXIETY FOR UP TO 10 DAYS Not Delegated - Benzodiazepines Protocol Failed - 02/19/2023 10:54 AM Failed - This refill cannot be delegated Passed - Visit with relevant provider in past 12 months or upcoming 90 days Recent Visits Date Type Provider Dept 01/18/23 Office Visit Loyda Jackson APRN, [facility] 12/16/22 Office Visit Loyda Jackson APRN, [facility] 11/28/22 Office Visit Loyda Jackson APRN, [facility] 11/21/22 Office Visit Loyda Jackson APRN, [facility] 09/20/22 Telemedicine Brown, Loyda M, ORNAMENT MAKER HAND, GAS ENGINE REPAIRER [facility] 07/11/22 Office Visit Loyda Jackson ORNAMENT MAKER HAND, GAS ENGINE REPAIRER [facility] 06/13/22 Office Visit Loyda Jackson ORNAMENT MAKER HAND, GAS ENGINE REPAIRER [facility] 04/22/22 Office Visit Loyda Jackson ORNAMENT MAKER HAND, GAS ENGINE REPAIRER [facility] 04/06/22 Office Visit Loyda Jackson APRN, GAS ENGINE REPAIRER [facility] 03/11/22 Office Visit [facility] Show[facility] recent visits within past 365 days and meeting all other requirements Future Appointments Date Type Provider Dept 04/19/23 Appointment Loyda Jackson APRN, GAS ENGINE REPAIRER [facility] Showing future appointments within next 90 days and meeting all other requirements TOP ANALYST documented in this encounter Plan of Treatment Upcoming Encounters Date Type Department Care Team (Late st Contact Info) Description 09/03/2024 10:30 AM CDT Office Visit [facility] - Neurology [facility] [address] [place] [address] Gregorio Lemus MD [address] [place] [address] documented as of this encounter Visit Diagnoses Diagnosis Alcohol withdrawal syndrome without complication (HCC) documented in this encounter Additional Health Concerns Infection Onset Date Last Indicated Resolved Time COVID - 19 04/06/2023 04/06/2023 04/16/2023 12:1 6 AM DESKTOP ANALYST C. difficile Rule-Out 04/08/2023 04/08/20232023 2:20 PM DESKTOP ANALYST C. difficile Rule-Out 04/19/2023 04/20/20232023 9:22 AM CDT COVID - 19 07/06/2023 07/06/2023 07/06/2023 4:44 PM CDT Assessment Noted Time PHQ-9 Depression Total Score: 0 04/23/19 22 4:00 PM CDT documented as of this encounter Care Teams Coo & Co Founder Relationship Specialty Start Date End Date José Sagastume MD PCP - General Family Medicine 03/02/20 03/12/23 Loyda Jackson APRN, GAS ENGINE REPAIRER [address] [place] [address] PCP - General Advanced Practice Nurse 03/13/23 04/18/23 Loyda Jackson, ORNAMENT MAKER HAND, GAS ENGINE REPAIRER [address] [place] [address] PCP - General Advanced Practice Nurse 04/19/23 05/08/23 José Sagastume MD PCP - General Family Medicine 05/09/23 05/21/23 Loyda Jackson, ORNAMENT MAKER HAND, GAS ENGINE REPAIRER [address] [place] [address] PCP - General Advanced Practice Nurse 05/22/23 05/25/23 José Sagastume MD PCP - General Family Medicine 05/26/23 05/27/23 Loyda Jackson ORNAMENT MAKER HAND, GAS ENGINE REPAIRER [address] [place] [address] PCP - General Advanced Practice Nurse 05/28/23 06/15/23 Provider, None [place] PCP - General 06/16/23 07/05/23 Loyda Jackson, ORNAMENT MAKER HAND, GAS ENGINE REPAIRER [address] [place] [address] PCP - General Advanced Practice Nurse 07/06/23 07/10/23 José Sagastume MD PCP - General Family Medicine 07/11/23 10/11/23 Provider, None [place] PCP - General 10/29/23 Siri Henao, ORNAMENT MAKER HAND, PUDDLER PILE DRIVING [address] [place] [address] Nurse Practitioner Advanced Practice Nurse 02/17/22 Gregorio Lemus MD [address] [place] [id number] Consulting Physician Neurology 02/21/23 documented as of this encounter
--- OUTSIDE RECORDS SUMMARY | 2024-03-08 13:15 | XMS_ITS | Encounter Summary ---
Author Organization [facility] Address [address] [place] [address] Phone Care Team Providers Care Bowstring Maker Name Role Phone Siri Henao APRN, [facility] Unavailable + [phone] Gregorio Lemus MD Unavailable [phone] Loyda Jackson APRN, ACCOUNTANT CLERK Primary Care Provider + Provider, None Primary Care Provider Unavailabl e Loyda Jackson APRN, ACCOUNTANT CLERK Primary Care Provider + José Sagastume MD Primary Care Provider [phone] Provider, None Primary Care Provider Unavailabl e Encounter Details Date Type Department Care Team (Late st Contact Info) Description 05/29/2023 Telephone [facility] [address] [place], [place] [id number] Loyda Jackson, CIGARETTE BOOK MAKER, ACCOUNTANT CLERK [address] [place] [address] Social History Tobacco Use Types Packs/Day Years Used Date Smoking Tobacco: Never Smokeless Tobacco: Never Alcohol Use Standard Drinks/Week Comments Yes 12 (1 standard drink = 0.6 oz pure alcohol) abstinent since recent hospitalization, April 06, formerly drank daily [facility] Utilities Answer Date Recorded In the past 12 months has [facility] [employer], gas, oil, or water [employer] threatened to shut off services in your home? Patient declined 04/07/2023 Social Connection and Isolation Panel [NHANES] A nswer Date Recorded In a typical week, how many times do you talk on the phone with family, friends, or neighbors? Patient declined 04/07/2023 How often do you get togethe r with friends or relatives? Patient declined 04/07/2023 How often do you attend confucianist or sikh serv ices? 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 Author Behavioral Health Behavioral Health On track( 024 2:09 PM CDT) Yes Wilbert Corley, NATURAL GAS TECHNICIAN Note: I need to be able to maintain sobriety plus reduce my anxiety Goal/Objective: Reduce anxiety. Anticipated Time Frame for Goal Completion: 6 months Goal Reviewed with: patient Readiness to change: Thinking about making a change Department associated with goal: [facility] Steps to achieve goal: [...] Health On track( 024 2:13 PM CDT) Wilbert Bradley LCSW Note: Patient will be able to report decreased relapses on alcohol along with increased insight into triggers for relapse Goal/Objective: Decrease alcohol relapses. Anticipated Time Frame for Goal Completion: 6 months Goal Reviewed with: patient Readiness to change: Thinking about making a change Department associated with goal: [facility] Steps to achieve goal: [...] 6 sessions 5. Will continue to attend [facility] 6. Will continue with [facility] once weekly AA meetings, needs to obtain a sponsor documented as of this encounter Visit Diagnoses Not on filedocumented in this encounter Additional Health Concerns Infection Onset Date Last Indicated Resolved Time COVID - 19 07/06/2023 07/06/2023 07/06/2023 4:44 PM CDT Assessment Noted Time PHQ-9 Depression Total Score: 0 04/23/19 22 4:00 PM CDT documented as of this encounter Care Teams Bowstring Maker Relationship Specialty Start Date End Date Loyda Jackson, CIGARETTE BOOK MAKER, ACCOUNTANT CLERK [address] [place] [address] PCP - General Advanced Practice Nurse 05/28/23 06/15/23 Provider, None [place] PCP - General 06/16/23 07/05/23 Loyda Jackson, CIGARETTE BOOK MAKER, ACCOUNTANT CLERK [address] [place] [address] PCP - General Advanced Practice Nurse 07/06/23 07/10/23 José Sagastume MD PA PCP - General Family Medicine 07/11/23 10/11/23 Provider, None [place] PCP - General 10/29/23 Siri Henao, CIGARETTE BOOK MAKER, OUTSIDE MACHINIST HELPER [address] [place] [address] Nurse Practitioner Advanced Practice Nurse 02/17/22 Gregorio Lemus MD [address] [place] [address] Consulting Physician Neurology 02/21/23 documented as of this encounter
--- OUTSIDE RECORDS SUMMARY | 2024-03-08 13:15 | XMS_ITS | Encounter Summary ---
Author Organization [employer] Address [address] [place] [address] Care Team Providers Care Agricultural Plow Operator Name Role Phone Kellen Weaver MD Primary Care Provider Encounter Details Date Type Department Care Team (Late st Contact Info) Description 12/19/2005 Outpatient Historical HIS OP NEUROLOGY Kellen Weaver MD [address] [place] [address] Social History Tobacco Use Types Packs/Day Years Used Date Smoking Tobacco: Never Assessed Comments Unknown Sex and Gender Information Value Date Recorded Sex Assigned at Not on file Legal Sex Female 4:12 AM ORDER DESK CALLER Gender Identity Not on file Sexual Orientation Not on file documented as of this encounter Plan of Treatment Not on file documented as of this encounter Visit Diagnoses Not on filedocumented in this encounter Care Teams Agricultural Plow Operator Relationship Specialty Start Date End Date Kellen Weaver MD [address] [place] [address] PCP - General 09/14/05 11/17/19 documented as of this encounter
--- OUTSIDE RECORDS SUMMARY | 2024-03-08 13:15 | XMS_ITS | Encounter Summary ---
Author Organization [facility] Address [address] [place] [address] Phone Care Team Providers Care Optomechanical Engineer Name Role Phone José Sagastume MD Primary Care Provider [phone] Loyda Jackson APRN, [facility] Primary Care Provider + Siri Henao APRN, ORNAMENTAL IRONWORKING SUPERVISOR Unavailable + [phone] Gregorio Lemus MD Unavailable +[phone] Loyda Jackson APRN, CONSTRUCTION ELECTRICIAN Primary Care Provider + José Sagastume MD Primary Care Provider [phone] Loyda Jackson APRN, CONSTRUCTION ELECTRICIAN Primary Care Provider + José Sagastume MD Primary Care Provider [phone] Loyda Jackson APRN, CONSTRUCTION ELECTRICIAN Primary Care Provider + Provider, None Primary Care Provider Unavailabl e Loyda Jackson APRN, CONSTRUCTION ELECTRICIAN Primary Care Provider + José Sagastume MD Primary Care Provider [phone] Provider, None Primary Care Provider Unavailabl e Reason for Visit * Reason Comments Medication Refill Encounter Details Date Type Department Care Team (Late st Contact Info) Description 08/09/2022 Refill [facility] - Family [facility] [address] [place] [address] Loyda Jackson, SALT CUTTER, CONSTRUCTION ELECTRICIAN [address] [place] [address] Medication Refill Social History Tobacco Use Types [...] 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 No / Unsure 07/11/2022 3:13 PM CDT documented as of this encounter Miscellaneous Notes * Telephone Encounter - Alanna Alfredo RN - 08/11/2022 9:39 AM CDT Medication failed the protocol, provider to review and approve the medication order if appropriate. Requested Prescriptions Pending Prescriptions Disp Refills naltrexone (DEPADE) 50 MG Tablet [Pharmacy Med Name: Naltrexone HCl 50 MG Oral Tablet] 30 Tablet 0 Sig: Take 1 tablet by mouth once daily Not Delegated - Off Protocol Failed - 08/09/2022 10:33 AM Failed - This refill cannot be delegated Passed - Visit with relevant provider in past 12 months or upcoming 90 days Recent Visits Date Type Provider Dept 07/11/22 Office Visit Loyda Jackson APRN, [facility] 06/13/22 Office Visit Loyda Jackson APRN, [facility] 04/22/22 Office Visit Loyda Jackson APRN, [facility] 04/06/22 Office Visit Loyda Jackson APRN, [facility] 03/11/22 Office Visit José Sagastume MD [facility] 02/01/22 Office Visit [facility] 08/[facility]21 Office Visit José Sagastume MD [facility] Showing recent visits within past 365 days and meeting all other requirements Future Appointments Date Type Provider Dept 09/13/22 Appointment [facility] Show[facility] future appointments within next 90 days and meeting all other requirements documented in this encounter Plan of Treatment Upcoming Encounters Date Type Department Care Team (Late st Contact Info) Description 09/03/2024 10:30 AM CDT Office Visit [facility] - Neurology [facility] [address] [place] [address] Gregorio Lemus MD [address] [place] [address] documented as of this encounter Visit Diagnoses Diagnosis ETOH abuse Alcohol abuse, unspecified documented in this encounter Additional Health Concerns Infection Onset Date Last Indicated Resolved Time COVID - 19 04/06/2023 04/06/2023 04/16/2023 12:1 6 AM LITHOGRAPHIC GENERAL WORKER C. difficile Rule-Out 04/08/2023 04/08/20232023 2:20 PM LITHOGRAPHIC GENERAL WORKER C. difficile Rule-Out 04/19/2023 04/20/20232023 9:22 AM CDT COVID - 19 07/06/2023 07/06/2023 07/06/2023 4:44 PM CDT Assessment Noted Time PHQ-9 Depression Total Score: 0 04/23/19 4:00 PM CDT documented as of this encounter Care Teams Optomechanical Engineer Relationship Specialty Start Date End Date José Sagastume MD PCP - General Family Medicine 03/02/20 03/12/23 Loyda Jackson, SALT CUTTER, CONSTRUCTION ELECTRICIAN [address] [place] [address] PCP - General Advanced Practice Nurse 03/13/23 04/18/23 Loyda Jackson, SALT CUTTER, CONSTRUCTION ELECTRICIAN [address] [place] [address] PCP - General Advanced Practice Nurse 04/19/23 05/08/23 José Sagastume MD PCP - General Family Medicine 05/09/23 05/21/23 Loyda Jackson, SALT CUTTER, CONSTRUCTION ELECTRICIAN [address] [place] [address] PCP - General Advanced Practice Nurse 05/22/23 05/25/23 José Sagastume MD PCP - General Family Medicine 05/26/23 05/27/23 Loyda Jackson, SALT CUTTER, CONSTRUCTION ELECTRICIAN [address] [place] [address] PCP - General Advanced Practice Nurse 05/28/23 06/15/23 Provider, None [place] PCP - General 06/16/23 07/05/23 Loyda Jackson, SALT CUTTER, CONSTRUCTION ELECTRICIAN [address] [place] [address] PCP - General Advanced Practice Nurse 07/06/23 07/10/23 José Sagastume MD PCP - General Family Medicine 07/11/23 10/11/23 Provider, None [place] PCP - General 10/29/23 Siri Henao APRN, ORNAMENTAL IRONWORKING SUPERVISOR [address] [place] [address] Nurse Practitioner Advanced Practice Nurse 02/17/22 Gregorio Lemus MD [address] [place] [address] Consulting Physician Neurology 02/21/23 documented as of this encounter
--- OUTSIDE RECORDS SUMMARY | 2024-03-08 13:15 | XMS_ITS | Encounter Summary ---
Author Organization [facility] Address [address] [place] [address] Phone Care Team Providers Care Retail Grocer Name Role Phone José Sagastume MD Primary Care Provider [phone] Loyda Jackson APRN, [facility] Primary Care Provider + Siri Henao APRN, PODIATRIC PHYSICIAN Unavailable + [phone] Gregorio Lemus MD Unavailable [phone] Loyda Jackson APRN, CRIMINOLOGY PROFESSOR Primary Care Provider + José Sagastume MD Primary Care Provider [phone] Loyda Jackson APRN, CRIMINOLOGY PROFESSOR Primary Care Provider + José Sagastume MD Primary Care Provider [phone] Loyda Jackson APRN, CRIMINOLOGY PROFESSOR Primary Care Provider + Provider, None Primary Care Provider Unavailabl e Loyda Jackson APRN, CRIMINOLOGY PROFESSOR Primary Care Provider + José Sagastume MD Primary Care Provider [phone] Provider, None Primary Care Provider Unavailabl e Reason for Visit * Reason Comments Medication Refill Encounter Details Date Type Department Care Team (Late st Contact Info) Description 02/11/2023 Refill [facility] - Family [facility] [address] [place] [address] TatiNadia brady, PAC [address] [place] [address] Medication Refill Social History Tobacco Use Types [...] 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 Requested Prescriptions Pending Prescriptions Disp Refills methocarbamol (ROBAXIN) 750 MG Tablet [Pharmacy Med Name: Methocarbamol 750 MG Oral Tablet] 120 Tablet 0 Sig: TAKE 1 TABLET BY MOUTH 4 TIMES DAILY NEEDED FOR MUSCLE SPASM Not Delegated - Muscle Relaxants Protocol Failed - 02/11/2023 10:24 AM Failed - This refill cannot be delegated Passed - Visit with relevant provider in past 12 months or upcoming 90 days Recent Visits Date Type Provider Dept 01/18/23 Office Visit Loyda Jackson APRN, [facility] 12/16/22 Office Visit Loyda Jackson APRN, [facility] 11/28/22 Office Visit Loyda Jackson APRN, [facility] 11/21/22 Office Visit Loyda Jackson APRN, [facility] 09/20/22 Telemedicine Loyda Jackson APRN, [facility] 07/11/22 Office Visit Loyda Jackson ACCOUNT ADMINISTRATOR, [facility] [place] 06/13/22 Office Visit Loyda Jackson ACCOUNT ADMINISTRATOR, [facility] [place] 04/22/22 Office Visit Loyda Jackson APRN, [facility] [place] 04/06/22 Office Visit Loyda Jackson APRN, [facility] [place] 03/11/22 Office Visit José Sagastume MD [facility] Showing recent visits within past 365 days and meeting all other requirements Future Appointments Date Type Provider Dept 04/19/23 Appointment Loyda Jackson APRN, [facility] Showing future appointments within next 90 days and meeting all other requirements O PRESS OPERATOR documented in this encounter Plan of Treatment Upcoming Encounters Date Type Department Care Team (Late st Contact Info) Description 09/03/2024 10:30 AM CDT Office Visit [facility] - Neurology [facility] [address] [place] [address] Gregorio Lemus MD [address] [place] [address] documented as of this encounter Visit Diagnoses Diagnosis Chronic bilateral low back pain without sciatica documented in this encounter Additional Health Concerns Infection Onset Date Last Indicated Resolved Time COVID - 19 04/06/2023 04/06/2023 04/16/2023 12:1 6 AM FLEXO PRESS OPERATOR C. difficile Rule-Out 04/08/2023 04/08/20232023 2:20 PM FLEXO PRESS OPERATOR C. difficile Rule-Out 04/19/2023 04/20/20232023 9:22 AM CDT COVID - 19 07/06/2023 07/06/2023 07/06/2023 4:44 PM CDT Assessment Noted Time PHQ-9 Depression Total Score: 0 04/23/19 4:00 PM CDT documented as of this encounter Care Teams Retail Grocer Relationship Specialty Start Date End Date José Sagastume MD PCP - General Family Medicine 03/02/20 03/12/23 Loyda Jackson APRN, CRIMINOLOGY PROFESSOR [address] [place] [address] PCP - General Advanced Practice Nurse 03/13/23 04/18/23 Loyda Jackson, ANTONI, CRIMINOLOGY PROFESSOR [address] [place] [address] PCP - General Advanced Practice Nurse 04/19/23 05/08/23 José Sagastume MD PCP - General Family Medicine 05/09/23 05/21/23 Loyda Jackson APRN, CRIMINOLOGY PROFESSOR [address] [place] [address] PCP - General Advanced Practice Nurse 05/22/23 05/25/23 José Sagastume MD PCP - General Family Medicine 05/26/23 05/27/23 Loyda Jackson APRN, CRIMINOLOGY PROFESSOR [address] [place] [address] PCP - General Advanced Practice Nurse 05/28/23 06/15/23 Provider, None [place] PCP - General 06/16/23 07/05/23 Loyda Jackson APRN, CRIMINOLOGY PROFESSOR [address] [place] [address] PCP - General Advanced Practice Nurse 07/06/23 07/10/23 José Sagastume MD PCP - General Family Medicine 07/11/23 10/11/23 Provider, None [place] PCP - General 10/29/23 Siri Henao, ACCOUNT ADMINISTRATOR, PODIATRIC PHYSICIAN [address] [place] [address] Nurse Practitioner Advanced Practice Nurse 02/17/22 Gregorio Lemus MD [address] [place] [address] Consulting Physician Neurology 02/21/23 documented as of this encounter
[2024-03-08 14:43] LABS: Basophils Percent Auto 0.4 % (0.2-1.2); Hematocrit 42.7 % (37.0-47.0); Hemoglobin 14.2 g/dL (12.0-15.0); Immature Granulocyte Absolute 0.03 K/mm3 (0.00-0.031); Immature Granulocyte Percent A 0.3 % (0-0.5); Lymphocytes Absolute Auto 2.04 K/mm3 (0.9-3.2); Lymphocytes Percent Auto 21.4 % (18.3-44.2); Mean Corpuscular HGB Conc 33.3 g/dl (32-36); Mean Corpuscular Hemoglobin 30.7 pg (26-34); Mean Corpuscular Volume 92.4 fl (80-100); Mean Platelet Volume 8.9 fl (7.4-10.4); Monocytes Absolute Auto 0.6 K/mm3 (0.1-0.6); Monocytes Percent Auto 6.6 % (2.6-8.5); Neutrophils Absolute Auto 6.8 K/mm3 (1.3-6.7); Neutrophils Percent Auto 71.3 % (45.5-73.1); Platelet Count Result 360 k/mm3 (150-375); Red Blood Count 4.62 M/mm3 (4.2-5.4); Red Cell Distribution Width 13.9 % (11.5-14.5); White Blood Count 9.5 K/mm3 (4.5-10.0)
[2024-03-08 14:47] LABS: Add Urine Microscopic? YES; Appearance Urine Clear (Clear); Bacteria Urine None Seen /hpf; Bilirubin Urine Negative (Negative); Blood Urine Negative (Negative); Color Urine Yellow (Yellow); Glucose Urine UA Negative (Negative); Ketones Urine Negative (Negative); Leukocyte Esterase Ur Negative LEU/UL (Negative); Nitrate Urine Negative (Negative); Protein Urine Trace mg/dL (Negative); Specific Grav Ur 1.017 (1.001-1.035); Squamous Epithelial Cell Urine Moderate /hpf (Few); Urobilinogen Urine 0.2 mg/dL (<2.0); WBC Urine 0-5 /hpf (0-3); pH Urine 7.5 (5.0-9.0)
[2024-03-08 14:56] LABS: INR 0.9; Partial Thromboplastin Time 23.6 Seconds (22.3-36.8); Prothrombin Time 12.4 Seconds (11.1-14.7)
[2024-03-08 14:59] LABS: Ethanol 214 mg/dL (<10)
[2024-03-08 15:13] LABS: Alanine Aminotransferase 23 U/L (6-35); Albumin Level 4.8 g/dL (3.5-5.1); Alkaline Phosphatase 106 U/L (38-126); Anion Gap 20 mmol/L (4-12); Aspartate Amino Transferase 39 U/L (14-36); Bilirubin,Total 0.7 mg/dL (0.2-1.3); Blood Urea Nitrogen 18 mg/dL (7-17); Calcium 8.5 mg/dL (8.4-10.2); Carbon Dioxide 18 mmol/L (22-30); Chloride 104 mmol/L (98-107); Estimated Glomerular Filt Rate > 60; Glucose 114 mg/dL (65-110); Lipase 106 U/L (23-300); Potassium 4.7 mmol/L (3.4-5.0); Sodium 142 mmol/L (137-145)
== END 2024-03-08 16:00 | disposition left against medical advice (07) ==
LOC: ANHED 13:13
PROVIDERS: Emergency Provider Physician Assistant
DX: S06.9X9A Unspecified intracranial injury with loss of consciousness of unspecified duration, initial encounter (principal); F10.10 Alcohol abuse, uncomplicated; Y90.7 Blood alcohol level of 200-239 mg/100 ml; S99.912A Unspecified injury of left ankle, initial encounter; S89.92XA Unspecified injury of left lower leg, initial encounter; W19.XXXA Unspecified fall, initial encounter; R93.89 Abnormal findings on diagnostic imaging of other specified body structures; M47.816 Spondylosis without myelopathy or radiculopathy, lumbar region; M47.812 Spondylosis without myelopathy or radiculopathy, cervical region
CPT/HCPCS: 36415; 70450; 70486; 71046; 72125; 72131; 73564; 73610; 80053; 81001; 82077; 83690; 85025; 85610; 85730; 96360; 99284

== ENCOUNTER 2024-10-01 07:12 | Outpatient (CLI) | payer OTHER, SELFPAY ==
--- OUTSIDE RECORDS SUMMARY | 2024-09-30 03:40 | XMS_ITS ---
Author Organization [facility] Address [address] [place] [address] Care Team Providers Care Quality Control Tester Name Role Phone Sal Lilia Primary Care Provider [phone] Marquise Jurado Unavailable [phone] Allergies Allergen (clinical drug ingredient) Drug/Non Drug Allergy documented on EMR Reaction Allergy Type Onset Date Status erythromycin Erythromycin Ethylsuccinate Unknown Drug Allergy Active tramadol Ultram Unknown Drug Allergy Active Substance with sulfonamide structure and antibacterial mechanism of action (substance) Sulfa Antibiotics Unknown Drug Allergy Active Reason For Referral Reason Posterior neck pain and mid back pain Diagnosis 1 Dorsalgia of multipl e sites in spine (M54.9) Diagnosis 2 Cervicalgia (M54.2) Referral Organization [facility] Referring Provider First Name Marquise Referring Provider Last Name Adrien Referring Provider Speciality [facility] Referred Provider 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 General Notes Nell Steve RN 11:28:22 AM > not taking insurance [facility] PT, Nell Steve RN 09/30/2024 11:28:57 AM >[employer] takes insurance Clinical Notes Nell Steve RN 11:29:34 AM >, [employer] , [address] [place] [address]., , fax [phone] Referral Priority Routine REASON FOR VISIT not feeling well Medications Medication SIG (Take, Route, Frequency, Duration) Notes Start Date End Date Status Docusate Sodium 100 MG 1 capsule as need ed Orally Once a day Active Zolpidem Tartrate 5 MG 1 tablet at bedti me Orally Once a day Active LORazepam 0.5 MG 1 tablet at bedtime as needed Orally Once a day 09/26/2024 Active hydrOXYzine Pamoate 25 MG 1-2 capsules O rally every 4 hours as needed for anxiety, agitation, or inability to sleep. Do not give within 4 hours of diphenhydramine.; Duration: 30 days 09/13/2024 Active Simethicone 125 MG 1 tablet after meals and at bedtime as needed Orally Four times a day Active Cetirizine HCl 10 MG 1 tablet as needed Orally Once a day; Duration: 30 day(s) 09/30/2024 Active Methocarbamol 750 MG 1 tablet Orally every 12 hours; Duration: 14 days As needed back pain Active Flonase Allergy Relief 50 MCG/ACT 1 spray in each nostril Nasally Twice a day; Duration: 30 days 09/30/2024 Active Donepezil HCl 5 MG 1 tablet at bedtime Orally Once a day Active Multi Vitamin - 1 tablet Orally Once a day; Duration: 30 days 09/13/2024 Active QUEtiapine Fumarate 100 MG 1 tablet Oral ly bedtime; Duration: 30 days 09/26/2024 Active Melatonin 5 MG 1 tablet at bedtime as needed Orally Once a day; Duration: 30 days 09/13/2024 Not-Takin g Amitriptyline HCl 50 MG 1 tablet at bedt ruthy Orally Once a day Not-Taking Social History Tobacco Use: Social History Observation Description Date Details (start date - stop date) Never Smoker NA - NA Sex Assigned At : Social History Observation Description Sex Assigned At Female PRAPARE Question Answer Notes Are you a refugee? No What country are you from? [place] Date Completed/Updated: 07/18/2023 What is your current housing situation? I have h ousing Are you worried about losing your housing? Yes What is the highest level of school that you have finished? High school diploma or GED What is your current work situation? Unemployed and seeking work In the past year, have you o r any family members you live with been unable to get any of the following when it was really needed? Check all that apply Food,Clothing Has lack of transportation k ept you from medical appointments, meetings, work or from getting things needed for daily living? No How often do you see or talk to people that you care about and feel close to? (For example: talking to friends on the phone, visiting friends or family, going to episcopalian or club meetings) 1 or 2 times a week How stressed are you? Stress is when someone feels tense, nervous, anxious, or can\t sleep at night because their mind is troubled Very much In the past year have you sp ent more than 2 nights in a row in a residential, penitentiary, correction center, or juvenile correctional facility? No Do you feel physically and e motionally safe where you currently live? Yes In the past year, have you b een afraid of your partner or ex-partner? No PRAPARE Score: 0 Tobacco Control (Standard) Question Answer Notes Tobacco use: Nonsmoker Problems Problem Type SNOMED Code ICD Code Onset Dates Problem Status W/U Status Risk Notes Problem Cervicalgia (29896621) Cervicalgia (M54.2) Active confirmed Problem Posterior rhinorrhea (48907990) Post-nasal drip (R09.82) Active confirmed Problem Breast cancer screening (176501116) Breast cancer screening (Z12.31) Active confirmed Problem Colon cancer screening (068929253) Colon cancer screening (Z12.11) Active confirmed Problem Screening for malignant neoplasm of cervix (731109100) Cervical cancer screening (Z12.4) Active confirmed Problem Backache (942241529) Dorsalgia of multiple sites in spine (M54.9) Active confirmed Problem Pain in left foot (613037409665073 ) Left foot pain (M79.672) Active confirmed Vital Signs Weight 139.6 lbs 09/30/2024 Height 61.25 in 09/30/2024 BMI 26.16 kg/m2 09/30/2024 Blood pressure systolic 124 mm Hg 10/01/19 Blood pressure diastolic 86 mm Hg 025 Heart Rate 62 /min 09/30/2024 Oximetry 98 % 09/30/2024 Temperature 97.9 degrees Fahrenheit 10/01/19 Respiratory Rate 18 /min 09/30/2024 patient c/o stiff neck/shoul ders, L foot swelling and arthritits this visit. Provider aware Encounters Encounter Location Date Provider Diagnosis [facility] [address] [place] [address] 09/30/2024 Marquise Jurado PATRICIA (generalized anxiety disorder) F41.1 ; Post-nasal drip R09.82 ; Breast cancer screening Z12.31 ; Colon cancer screening Z12.11 ; Cervicalgia M54.2 ; Cervical cancer screening Z12.4 ; Dorsalgia of multiple sites in spine M54.9 ; Left foot pain M79.672 and Over weight E66.3 Assessments Encounter Date Diagnosis (ICD Code) Assessment Notes Treatment Notes Treatment Clinical Notes Section Notes 09/30/2024 PATRICIA (generalized anxiety disorder) (ICD-10 - F41.1) Educated the patient to keep her appt with Joellen Hoffman to discuss her anxiety. Educated the patient on breathing techniques to lower anxiety levels. 09/30/2024 Post-nasal drip (ICD-10 - R09.82) 09/30/2024 Breast cancer screening (ICD-10 - Z12.31) 09/30/2024 Colon cancer screening (ICD-10 - Z12.11) 09/30/2024 Cervicalgia (ICD-10 - M54.2) 09/30/2024 Cervical cancer screening (ICD-10 - Z12.4) Patient has been educated on calling her insurance to find a SWITCHBOARD MECHANIC provider in network to get a well-woman exam and cervical exam. 09/30/2024 Dorsalgia of multiple sites in spine (ICD-10 - M54.9) 09/30/2024 Left foot pain (ICD-10 - M79.672) Patient can elevate L foot as needed every 1-2 hours for welling in foot and apply ice at this time. Patient can still attend group, but can elevate her foot during those groups as needed. Educated the patient on RICE Educated patient on following up with surgical team to address further concerns with her foot. 09/30/2024 Over weight (ICD-10 - E66.3) Plan Of Treatment Medication Medication Name Sig Start Date Stop Date Notes Cetirizine HCl 10 MG 1 tablet as needed Orally Once a day; Duration: 30 day(s) 09/30/2024 Methocarbamol 750 MG 1 tablet Orally page ry 12 hours; Duration: 14 days Flonase Allergy Relief 50 MCG/ACT 1 spray in each nostril Nasally Twice a day; Duration: 30 days 09/30/2024 Treatment Notes Assessment Notes PATRICIA (generalized anxiety disorder) Educated the patient to keep her appt with Joellen Hoffman to discuss her anxiety. Educated the patient on breathing techniques to lower anxiety levels. Cervical cancer screening Patient has be en educated on calling her insurance to find a SWITCHBOARD MECHANIC provider in network to get a well-woman exam and cervical exam. Left foot pain Patient can elevate L foot as needed every 1-2 hours for welling in foot and apply ice at this time. Patient can still attend group, but can elevate her foot during those groups as needed. Educated the patient on RICE Educated patient on following up with surgical team to address further concerns with her foot. Future Test Test Name Order Date Xray : Neck 09/30/2024 Referrals Referral Date Details 09/30/2024 09/30/2024, Posterio r neck pain and mid back pain Next Appt Details Follow Up: prn, Reason: Provider Name:Marquise dallas, 10/04/2024 01:00:00 PM, [address], [place], [address], Provider Name:Joellen Perla Dalton , 10/10/2024 10:00:00 AM, [address] [facility] [address], [place], [address], Progress Notes * Catherine WILBURNhDOB:1960 (64 yo F)Acc No.[id number]:09/30/2024 UNLOCKED PROGRESS NOTE Progress Note Patient: Malu EL Provider: Geraldo Jurado APN :1960 A ge:64 Y S ex:Female Date:09/30/2024 Phone: Address:[address] [place], [place] [id number] Pcp:Lilia Huang Check 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 Not feeling well. * HPI: I nterim History: Emergency room visit N o. W as hospitalized N o.? D epression Screening: PHQ-9 L ittle interest or pleasure in doing things S everal days, F eeling down, depressed, or hopeless S everal days, T rouble falling or staying asleep, or sleeping too much M ore than half the days, F eeling tired or having little energy M ore than half the days, P oor appetite or overeating M ore than half the days,?Feeling bad about yourself or that you are a failure, or have let yourself or your family down Several days, T rouble concentrating on things, such as reading the newspaper or watching television S everal days, M oving or speaking so slowly that other people could have noticed; or the opposite, being so fidgety or restless that you have been moving around a lot more than usual?Not at all, T houghts that you would be better off or of hurting yourself in some way Not at all, T otal Score 1 0, I nterpretation M oderate Depression. I ntervention D epression Screening Findings P ositive, F ollow-Up for Depression N o Referral necessary, patient involved in behavioral health treatment .. S creening: [place] Suicide Severity Rating Scale (LF) D o you want to initiate with S creener form, 1 . Wish to be : Have you wished you were or wished you could go to sleep and not wake up? N o, 2 . Suicidal Thoughts: Have you actually had any thoughts of killing yourself? N o, 6 . Suicide Behavior Question: Have you ever done anything,started to do anything, or prepared to end your life? N o, I nterpretation: L ow Risk. P reventative Health and Wellness follow-up: Action Plans for Clinical Quality Measures: B reast Cancer Screening: O ther (see notes). patient chooses to discuss with provider, C ervical Cancer Screening: O ther (see notes). patient chooses to discuss with provider, C olorectal Cancer Screening: O ther (see notes). patient chooses to discuss with provider, H IV Screening: N ot addressed during this visit. See notes for details., T obacco Screening and Cessation: N ot addressed during this visit. See notes for details.. .. C SSRS Interpretation and Follow Up Plan: CSSRS Interpretation and Follow Up Plan C SSRS Screen documented using SF Y es, R isk Disposition from L ow - No Follow Up Plan Required, F ollow Up Plan N o Follow Up Plan required at this time., T imeframe of Screening T theresa.? C onstitutional: Health Literacy B ased on interaction with patient, assessed patient to have .. S yojana: 64-year-old female presents to the clinic for multiple concerns today. The patient has a number of concerns including post-nasal drip sensation, neck and mid back pain, screenings for colon/breast/cervical cancers, and L foot pain post surgery 6 months ago. The patient states that a week ago she started to have post-nasal drip sensation with some nasal discharge. She denies fevers, body aches, chills, headaches, CP, or SOB. She denies being around anyone who has been sick. She denies taking any medications to help. The patient states that she has had neck and back pain for years along with PATRICIA. She states that she is being treated here for anxiety, but does not feel like what she is on is helping keep the anxiety at bay. She states that the neck and back pain can worsen as her anxiety worsens, but it is always there even if her anxiety is low. She admits to taking methocarbomol in the past with some success and would like a refill. She denies having issues on the medication. She denies ever having PT for the pain and would like that as well. The patient states that she fell a little over 6 months ago and had broken 2 toes and had to have surgery, which was done at [facility]. She states that she had a follow up and is having pain still and slight swelling. The patient states that she would like colon/breast/cervical screening done today. She states that she was not sure what the cervical screening would entail and would like to be seen by a female for this process. She denies having seen a SWITCHBOARD MECHANIC in a few years and will start looking for a new SWITCHBOARD MECHANIC. She states that she has not had a mammogram in a long time, but it was normal at that time. She denies having a colonoscopy at all and would like to get the fecal testing done today. She denies any breast lumps, lesions, or changes in color. She denies any breast pain. She denies any GI upset or symptoms at this time or in the last year including blood in her stool. She denies being sexually active recently. * ROS: G eneral/Constitutional: Fatigue d enies. S leep disturbance d enies. W eight loss d enies. O phthalmologic: Blurred vision d enies. E NT: Postnasal drip sensation a dmits. D ifficulty swallowing d enies. R inging in the ears d enies. R espiratory: Cough d enies. S hortness of breath at rest d enies. S hortness of breath with exertion d enies. W heezing d enies. C ardiovascular: Chest pain at rest d enies. C hest pain with exertion?denies. D yspnea on exertion d enies. I rregular heartbeat d enies. ? G astrointestinal: Abdominal pain d enies. B lood in stool d enies.?Change in bowel habits d enies. C onstipation d enies. H eartburn d enies.? M usculoskeletal: Joint stiffness d enies. P ainful joints a dmits L foot pain and swelling post surgery after a fall 6 months ago. Patient admits to posterior neck and head pain down to her shoulders and mid back. Denies pain on spine.. W eakness d enies. S kin: Rash d enies. N eurologic: Memory loss d enies. T ingling/Numbness d enies.? * PSYCH ROS2: Depressed mood d enies. M ental or Physical abuse d enies. * Medical History: I nsomnia, Anxiety. * Surgical History: m alexy walker , breast augmentation , dupuytren contracture surgery in both hands . * Hospitalization/Major Diagno stic Procedure: Brittney Jason. for Alcohol detox , child x3 . * Family History: F ather: alive. M other: , passed from Leukemia. 1 brother(s) , 2 sister(s) - healthy. 2 son(s) , 1 daughter(s) - healthy. . * Social History: P rimary Social History: L iving Arrangement L iving Arrangement: I ndependent Living. A lcohol Use A lcohol Use Frequency: W eekly or Daily Pt stated her binges would last 2-3 days, T ype of alcohol consumed L iquor Last Drink 07/2023. I llicit Substance Usage I llicit Substance Usage: N o. E mployment Status E mployment Status: U nemployed. S vijay Question Alcohol Screening H ow may times in the past year have you had (4 for women, or 5 for men) or more drinks in a day? 9 .. S ocial Determinants: Paulino BEAUCHAMP D ate Completed/Updated: 0 07/18/2023, W hat is your current housing situation? I have housing, A re you worried about losing your housing? Y es, W hat is the highest level of school that you have finished? H igh school diploma or GED, W hat is your current work situation? U nemployed and seeking work, I n the past year, have you or any family members you live with been unable to get any of the following when it was really needed? Check all that apply F ood,Clothing, H as lack of transportation kept you from medical appointments, meetings, work or from getting things needed for daily living? N o, H ow often do you see or talk to people that you care about and feel close to? (For example: talking to friends on the phone, visiting friends or family, going to episcopalian or club meetings) 1 or 2 times a week, H ow stressed are you? Stress is when someone feels tense, nervous, anxious, or can\t sleep at night because their mind is troubled V honorio much, I n the past year have you spent more than 2 nights in a row in a residential, penitentiary, correction center, or juvenile correctional facility? N o, D o you feel physically and emotionally safe where you currently live? Y es, I n the past year, have you been afraid of your partner or ex-partner? N o, A re you a refugee? N o, W hat country are you from[place] P NITO Score: 0 . T obacco Use: T obacco Control (Standard) T obacco use: N onsmoker. M iscellaneous: M ethod of learning P referred method of learning: D emonstration. * Medications: T aking Donepezil HCl 5 MG Tablet 1 tablet at bedtime Orally Once a day , Taking Multi Vitamin - Tablet 1 tablet Orally Once a day , Taking hydrOXYzine Pamoate 25 MG Capsule 1-2 capsules Orally every 4 hours as needed for anxiety, agitation, or inability to sleep. Do not give within 4 hours of diphenhydramine. , Taking Simethicone 125 MG Tablet Chewable 1 tablet after meals and at bedtime as needed Orally Four times a day , Taking Docusate Sodium 100 MG Capsule 1 capsule as needed Orally Once a day , Taking Zolpidem Tartrate 5 MG Tablet 1 tablet at bedtime Orally Once a day , Taking LORazepam 0.5 MG Tablet 1 tablet at bedtime as needed Orally Once a day , Taking QUEtiapine Fumarate 100 MG Tablet 1 tablet Orally bedtime , Not- Taking Melatonin 5 MG Tablet 1 tablet at bedtime as needed Orally Once a day , Not- Taking Amitriptyline HCl 50 MG Tablet 1 tablet at bedtime Orally Once a day , Medication List reviewed and reconciled with the patient * Allergies: S ulfa Antibiotics, Ultram, Erythromycin Ethylsuccinate. Objective: * Vitals: I nitials: HM, Wt:139.6, Ht: 61.25, BMI:26.16, BP:124/86, HR:62, Oxygen sat %:98, Temp:97.9, RR:18, Pain scale:7. patient c/o stiff neck/shoulders, L foot swelling and arthritits this visit. Provider aware. * Examination: G eneral Examination: GENERAL APPEARANCE: w ell developed, well nourished. HEAD: n ormocephalic, atraumatic. EYES: e xtra ocular movements intact (EOMI), pupils equal, round, reactive to light and accommodation. EARS t ympanic membrane intact, clear, BOTH EARS. NOSE: n glen patent, boggy turbinates noted.. ORAL CAVITY: m issing teeth, posterior pharynx with erythema and without exudate noted.. THROAT: p harynx normal, tonsils normal. NECK/THYROID: n phong supple, full range of motion, no cervical lymphadenopathy. LYMPH NODES: n o palpable adenopathy. SKIN: n ormal, no rashes. HEART: r egular rate and rhythm, S1, S2 normal, no murmurs.? LUNGS: c lear to auscultation bilaterally, good air movement. ABDOMEN: s oft, nontender, nondistended, bowel sounds present, no masses palpable, no hepatosplenomegaly. MUSCULOSKELETAL: M uscle tension felt from occipital head down posterior neck on bilateral sides of spine, down to her bilateral shoulders along bilateral scapula.. EXTREMITIES: n ormal in all extremities besides L foot with noted surgical scar between 1st and 2nd toes and nonpitting edema noted on L foot. Pain with palpation on dorsal side of foot.. PERIPHERAL PULSES: n ormal. NEUROLOGIC: n onfocal. Assessment: * Assessment: 1. P ost-nasal drip - R09.82 (Primary) 2 . G AD (generalized anxiety disorder) - F41.1 3 . B reast cancer screening - Z12.31 4 . C olon cancer screening - Z12.11 5 . C ervicalgia - M54.2 6 . C ervical cancer screening - Z12.4 7 . D orsalgia of multiple sites in spine - M54.9? 8. L eft foot pain - M79.672 9 . O wilda weight - E66.3 Plan: * Treatment: 2. G AD (generalized anxiety disorder) Notes: Educated the patient to keep her appt with Joellen Hoffman to discuss her anxiety. Educated the patient on breathing techniques to lower anxiety levels. 3. B reast cancer screening I maging: Mammogram Breast - Bilateral Screening with ABUS, diagnostic mammogram/ultrasound, and/or biopsy as clinically indicated (Ordered for 10/07/2024) (Order Cancelled) 4. C ervicalgia Refill Methocarbamol Tablet, 750 MG, 1 tablet, Orally, every 12 hours As needed back pain, 14 days, 28 Tablet, Refills 0. I maging: Xray : Neck (Ordered for 09/30/2024) Referral To:Physical Therapist Reason:Posterior neck pain and mid back pain 5. C ervical cancer screening Notes: Patient has been educated on calling her insurance to find a SWITCHBOARD MECHANIC provider in network to get a well-woman exam and cervical exam. 6. D orsalgia of multiple sites in spine I maging: Xray : Neck (Ordered for 09/30/2024) Referral To:Physical Therapist Reason:Posterior neck pain and mid back pain 7. L eft foot pain Notes: Patient can elevate L foot as needed every 1-2 hours for welling in foot and apply ice at this time. Patient can still attend group, but can elevate her foot during those groups as needed. Educated the patient on RICE Educated patient on following up with surgical team to address further concerns with her foot. * Recommended Wellness and Pre vention Guidelines: * S tatus A lert L ast Done N ext Due A ction Taken N ONCOMPLIANT A lcohol use screening - 0 09/30/2024 - - N ONCOMPLIANT B reast cancer screening - 0 09/30/2024 - - N ONCOMPLIANT C ervical cancer screening - 0 09/30/2024 - - N ONCOMPLIANT C holesterol control (genl pop) 0 07/21/2023 0 09/30/2024 - - N ONCOMPLIANT C olorectal cancer screening - 0 09/30/2024 - - N ONCOMPLIANT D epression followup 0 09/30/2024 0 09/30/2024 - - * Procedure Codes: 3 008F BODY MASS INDEX DOCD * Preventive Medicine: Counseling: S MOKING: P atient counselled on the dangers of tobacco use and urged to quit. 0 09/30/2024 .. C are goal follow-up plan: B OR management provided Y es,?Above Normal BMI Follow-up L ifestyle education regarding diet. * Follow Up: p rn * * Electronic signature of Joe Jurado on 10/01/2024 at 07:18 AM CDT Sign off status: Pending * Provider: Geraldo Jurado APN Date: 09/30/2024 Generated for Дмитрий webb/Gabi/Ceasaritting on: 0 10/01/2024 07:18 AM CDT History and Physical Notes * HPI (History of Present Illness) Category Sub-Category Detail Notes Category Not es Interim History Was hospitalized No Emergency room visit No Depression Screening PHQ-9 Little inte rest or pleasure in doing things: Several days Feeling down, depressed, or hopeless: Se veral days Trouble falling or staying a sleep, or sleeping too much: More than half the days Feeling tired or having little energy: M ore than half the days Poor appetite or overeating: More than h care home the days Feeling bad about yourself o r that you are a failure, or have let yourself or your family down: Several days Trouble concentrating on thi ngs, such as reading the newspaper or watching television: Several days Moving or speaking so slowly that other people could have noticed; or the opposite, being so fidgety or restless that you have been moving around a lot more than usual: Not at all Thoughts that you would be b christina off or of hurting yourself in some way: Not at all Total Score: 10 Interpretation: Moderate Depression Intervention Depression Screening Findings: P ositive Follow-Up for Depression: No Referral necessary, patient involved in behavioral health treatment . Constitutional Health Literacy Based on interac tion with patient, assessed patient to have : . Summary 64-year-old female presents to the clinic for multiple concerns today. The patient has a number of concerns including post-nasal drip sensation, neck and mid back pain, screenings for colon/breast/cervical cancers, and L foot pain post surgery 6 months ago. The patient states that a week ago she started to have post-nasal drip sensation with some nasal discharge. She denies fevers, body aches, chills, headaches, CP, or SOB. She denies being around anyone who has been sick. She denies taking any medications to help. The patient states that she has had neck and back pain for years along with PATRICIA. She states that she is being treated here for anxiety, but does not feel like what she is on is helping keep the anxiety at bay. She states that the neck and back pain can worsen as her anxiety worsens, but it is always there even if her anxiety is low. She admits to taking methocarbomol in the past with some success and would like a refill. She denies having issues on the medication. She denies ever having PT for the pain and would like that as well. The patient states that she fell a little over 6 months ago and had broken 2 toes and had to have surgery, which was done at [facility]. She states that she had a follow up and is having pain still and slight swelling. The patient states that she would like colon/breast/cervical screening done today. She states that she was not sure what the cervical screening would entail and would like to be seen by a female for this process. She denies having seen a SWITCHBOARD MECHANIC in a few years and will start looking for a new SWITCHBOARD MECHANIC. She states that she has not had a mammogram in a long time, but it was normal at that time. She denies having a colonoscopy at all and would like to get the fecal testing done today. She denies any breast lumps, lesions, or changes in color. She denies any breast pain. She denies any GI upset or symptoms at this time or in the last year including blood in her stool. She denies being sexually active recently. Screening [place] Suicide Severity Rating Scale (LF) Do you want to initiate with: Screener form 1. Wish to be : Have you wished you were or wished you could go to sleep and not wake up?: No 2. Suicidal Thoughts: Have you actually had any thoughts of killing yourself?: No 6. Suicide Behavior Question: Have you ever done anything,started to do anything, or prepared to end your life?: No Interpretation:: Low Risk Preventative Health and Wellness follow-up Action Plans for Clinical Quality Measures: Breast Cancer Screening:: Other (see notes). patient chooses to discuss with provider . . Cervical Cancer Screening:: Other (see notes). patient chooses to discuss with provider Colorectal Cancer Screening: : Other (see notes). patient chooses to discuss with provider HIV Screening:: Not addresse d during this visit. See notes for details. Tobacco Screening and Cessat ion:: Not addressed during this visit. See notes for details. CSSRS Interpretation and Follow Up Plan CSSRS Interpretation and Follow Up Plan CSSRS Screen documented using SF: Yes Risk Disposition from SF: Low - No Follo w Up Plan Required Follow Up Plan: No Follow Up Plan requir ed at this time. Timeframe of Screening: Today Examination Category Sub-Category Detail Notes Category Not es General Examination GENERAL APPEARANCE: well developed , well nourished HEAD: normocephalic, atrau matic EYES: extra ocular movemen ts intact (EOMI), pupils equal, round, reactive to light and accommodation EARS tympanic membrane in tact, clear, BOTH EARS NOSE: nares patent, boggy turbinates noted. THROAT: pharynx normal, tons ils normal NECK/THYROID: neck supple, full ra nge of motion, no cervical lymphadenopathy HEART: regular rate and rhy thm, S1, S2 normal, no murmurs LUNGS: clear to auscultatio n bilaterally, good air movement ABDOMEN: soft, nontender, non distended, bowel sounds present, no masses palpable, no hepatosplenomegaly NEUROLOGIC: nonfocal SKIN: normal, no rashes EXTREMITIES: normal in all extrem ities besides L foot with noted surgical scar between 1st and 2nd toes and nonpitting edema noted on L foot. Pain with palpation on dorsal side of foot. PERIPHERAL PULSES: normal MUSCULOSKELETAL: Muscle tension felt from occipital head down posterior neck on bilateral sides of spine, down to her bilateral shoulders along bilateral scapula. LYMPH NODES: no palpable adenopat hy ORAL CAVITY: missing teeth, poste rior pharynx with erythema and without exudate noted. Consultation Request Notes Referral Date Referring Provider Referred Provider Not es 09/30/2024 Marquise Jurado , [place] n phong pain and mid back pain
--- NOTE | ~2024-10-01 | CT_ITS ---
EXAMINATION: CTA BRAIN/CAROTID DATE: 10/01/2024 07:39 INDICATION: Follow-up cerebral aneurysm. Headache. TECHNIQUE: Computed tomographic angiography (CTA) of the head and neck was performed with 100 mL Omnipaque-350 intravenous contrast. Multiplanar reconstructions and maximum intensity projection 3D-reconstructions of the carotid arteries and of the intracranial arteries were created by the technologist on a separate workstation. Precontrast CT of the head was also obtained. Automated exposure control and iterative reconstruction technique were employed.The dose-length product was 1482.80 mGy-cm. COMPARISON: Head CT dated 03/08/2024 FINDINGS: Head: No acute intracranial hemorrhage, acute infarction or abnormal extra axial fluid collection. Ventricles are normal and symmetric. No mass/mass effect. No abnormal enhancing lesion on the post contrast imaging. The orbits, paranasal sinuses and mastoid air cells are normal. Intracranial arteries Vertebral arteries are codominant. There is no hemodynamically significant stenosis in the vertebral, basilar and internal carotid arteries. Both A1 and P1 segments are patent. There are also patent bilateral posterior communicating arteries. There are no aneurysms identified. Cerebral arterial arborization appears symmetric. Carotid arteries: The aortic arch and the great vessels arising from the arch are normal in caliber with no dissection or hemodynamically significant stenosis. There is no evident atherosclerotic plaque with 0% stenosis of the right and left carotid bulbs relative to normal distal artery lumen diameter (NASCET criteria). There is moderate stenosis at the proximal left vertebral artery resulting from a sharp kink in the course of the artery with no evident atherosclerotic plaque along the bilateral vertebral arteries.. Bilateral breast implants with capsular calcination on the left and likely intracapsular rupture on the right visualized upper lungs are clear. Likely benign subcentimeter right thyroid nodule. Moderat e cervical spondylosis. IMPRESSION: 1. No atherosclerotic plaque with 0% stenosis of the right and left carotid bulbs relative to normal distal artery lumen diameter (NASCET criteria). 2. Unremarkable cerebral CT angiogram with no evident aneurysm, thrombosis or dissection. 3. Normal brain. No acute intracranial process or abnormally enhancing brain lesions. Reviewed, dictated and finalized at location A. IMPRESSION: 1. No atherosclerotic plaque with 0% stenosis of the right and left carotid bul bs relative to normal distal artery lumen diameter (NASCET criteria). 2. Unremarkable cerebral CT angiogram with no evident aneurysm, thrombosis or d issection. 3. Normal brain. No acute intracranial process or abnormally enhancing brain le sions.
--- OUTSIDE RECORDS SUMMARY | 2024-10-01 07:16 | XMS_ITS | Encounter Summary ---
Author Organization [facility] Address [address] [place] [address] Phone Care Team Providers Care Graves Registration Specialist Name Role Phone José Sagastume MD Primary Care Provider [phone] Loyda Jackson APRN, [facility] Primary Care Provider + Siri Henao APRN, STONE PROCESSING MACHINE OPERATOR Unavailable + [phone] Gregorio Lemus MD Unavailable +[phone] Loyda Jackson APRN, [facility] Primary Care Provider + José Sagastume MD Primary Care Provider [phone] Loyda Jackson APRN, [facility] Primary Care Provider + José Sagastume MD Primary Care Provider [phone] Loyda Jackson APRN, [facility] Primary Care Provider + Provider, None Primary Care Provider Unavailabl e Loyda Jackson APRN, [facility] Primary Care Provider + José Sagastume MD Primary Care Provider [phone] Provider, None Primary Care Provider Unavailabl e Reason for Visit * Reason Comments Medication Refill Encounter Details Date Type Department Care Team (Late st Contact Info) Description 10/02/2021 Refill [facility] Family 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 difficile Rule-Out 04/08/2023 04/08/20232023 2:20 PM CELLAR PUMPER C. difficile Rule-Out 04/19/2023 04/20/20232023 9:22 AM CDT COVID - 19 07/06/2023 07/06/2023 07/06/2023 4:44 PM CDT Assessment Noted Time PHQ-9 Depression Total Score: 0 04/23/19 4:00 PM CDT documented as of this encounter Care Teams Graves Registration Specialist Relationship Specialty Start Date End Date José Sagastume MD PCP - General Family Medicine 03/02/20 03/12/23 Loyda Jackson APRN, SECURITIES RESEARCH ANALYST [address] [place] [address] PCP - General Advanced Practice Nurse 03/13/23 04/18/23 Loyda Jackson APRN, SECURITIES RESEARCH ANALYST [address] [place] [address] PCP - General Advanced Practice Nurse 04/19/23 05/08/23 José Sagastume MD PCP - General Family Medicine 05/09/23 05/21/23 Loyda Jacskon, REFINED SYRUP OPERATOR, SECURITIES RESEARCH ANALYST [address] [place] [address] PCP - General Advanced Practice Nurse 05/22/23 05/25/23 José Sagastume MD PCP - General Family Medicine 05/26/23 05/27/23 Loyda Jackson, REFINED SYRUP OPERATOR, SECURITIES RESEARCH ANALYST [address] [place] [address] PCP - General Advanced Practice Nurse 05/28/23 06/15/23 Provider, None [place] PCP - General 06/16/23 07/05/23 Loyda Jackson, REFINED SYRUP OPERATOR, SECURITIES RESEARCH ANALYST [address] [place] [address] PCP - General Advanced Practice Nurse 07/06/23 07/10/23 José Sagastume MD PCP - General Family Medicine 07/11/23 10/11/23 Provider, None [place] PCP - General 10/29/23 Siri Henao, REFINED SYRUP OPERATOR, STONE PROCESSING MACHINE OPERATOR [address] [place] [address] Nurse Practitioner Advanced Practice Nurse 02/17/22 Gregorio Lemus MD [address] [place] [address] Consulting Physician Neurology 02/21/23 documented as of this encounter
--- OUTSIDE RECORDS SUMMARY | 2024-10-01 07:16 | XMS_ITS | Encounter Summary ---
Author Organization [facility] Address [address] [place] [address] Phone Care Team Providers Care Transformation Architect Name Role Phone José Sagastume MD Primary Care Provider [phone] Loyda Jackson APRN, [facility] Primary Care Provider + Siri Henao APRN, FURNACE REPAIRER Unavailable + [phone] Gregorio Lemus MD Unavailable +[phone] Loyda Jackson APRN, [facility] Primary Care Provider + José Sagastume MD Primary Care Provider [phone] Loyda Jackson APRN, [facility] Primary Care Provider + José Sagastume MD Primary Care Provider [phone] Loyda Jackson APRN, [facility] Primary Care Provider + Provider, None Primary Care Provider Unavailabl e Loyda Jackson APRN, [facility] Primary Care Provider + José Sagastume MD Primary Care Provider [phone] Provider, None Primary Care Provider Unavailabl e Reason for Visit * Reason Comments Medication Refill Encounter Details Date Type Department Care Team (Late st Contact Info) Description 12/02/2021 [facility]ill [facility] [address] [place] [address] José Sagastume MD [address] [place] [address] Medication Refill Social History Tobacco Use Types [...] 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 [...] [place] 04/22/21 Office Visit José Sagastume MD [facility] Showing recent visits within past 365 days and meeting all other requirements Future Appointments Date Type Provider Dept 12/09/21 Appointment José Sagastume MD [facility] Showing future appointments within next 90 days and meeting all other requirements documented in this encounter Plan of Treatment Not on file documented as of this encounter Visit Diagnoses Diagnosis Chronic bilateral low back pain without sciatica documented in this encounter Additional Health Concerns Infection Onset Date Last Indicated Resolved Time COVID - 19 01/22/2022 01/22/2022 01/25/2022 8:35 AM REVOLVING INVENTORY CLERK COVID - 19 Confirmed 02/21/2022 02/21/2022 023 12:16 AM REVOLVING INVENTORY CLERK COVID - 19 04/06/2023 04/06/2023 04/16/2023 12:1 6 AM REVOLVING INVENTORY CLERK C. difficile Rule-Out 04/08/2023 04/08/20232023 2:20 PM REVOLVING INVENTORY CLERK C. difficile Rule-Out 04/19/2023 04/20/20232023 9:22 AM CDT COVID - 19 07/06/2023 07/06/2023 07/06/2023 4:44 PM CDT Assessment Noted Time PHQ-9 Depression Total Score: 0 04/23/19 4:00 PM CDT documented as of this encounter Care Teams Transformation Architect Relationship Specialty Start Date End Date José Sagastume MD PCP - General Family Medicine 03/02/20 03/12/23 Loyda Jackson APRN, CANCELING AND CUTTING CONTROL CLERK [address] [place] [address] PCP - General Advanced Practice Nurse 03/13/23 04/18/23 Loyda Jackson APRN, CANCELING AND CUTTING CONTROL CLERK [address] [place] [address] PCP - General Advanced Practice Nurse 04/19/23 05/08/23 José Sagastume MD PCP - General Family Medicine 05/09/23 05/21/23 Loyda Jackson, EXECUTIVE ASSOCIATE, CANCELING AND CUTTING CONTROL CLERK [address] [place] [address] PCP - General Advanced Practice Nurse 05/22/23 05/25/23 José Sagastume MD PCP - General Family Medicine 05/26/23 05/27/23 Loyda Jackson, EXECUTIVE ASSOCIATE, CANCELING AND CUTTING CONTROL CLERK [address] [place] [address] PCP - General Advanced Practice Nurse 05/28/23 06/15/23 Provider, None [place] PCP - General 06/16/23 07/05/23 Loyda Jackson, EXECUTIVE ASSOCIATE, CANCELING AND CUTTING CONTROL CLERK [address] [place] [address] PCP - General Advanced Practice Nurse 07/06/23 07/10/23 José Sagastume MD PCP - General Family Medicine 07/11/23 10/11/23 Provider, None [place] PCP - General 10/29/23 Siri Henao, EXECUTIVE ASSOCIATE, FURNACE REPAIRER [address] [place] [address] Nurse Practitioner Advanced Practice Nurse 02/17/22 Gregorio Lemus MD [address] [place] [address] Consulting Physician Neurology 02/21/23 documented as of this encounter
--- OUTSIDE RECORDS SUMMARY | 2024-10-01 07:17 | XMS_ITS | Encounter Summary ---
Author Organization [facility] Address [address] [place] [address] Phone Care Team Providers Care Outpatient Therapist Name Role Phone José Sagastume MD Primary Care Provider [phone] Loyda Jackson APRN, [facility] Primary Care Provider + Siri Henao APRN, TOE STRIPPER Unavailable + [phone] Gregorio Lemus MD Unavailable [phone] Loyda Jackson APRN, [facility] Primary Care Provider + José Sagastume MD Primary Care Provider [phone] Loyda Jackson APRN, [facility] Primary Care Provider + José Sagastume MD Primary Care Provider [phone] Loyda Jackson APRN, [facility] Primary Care Provider + Provider, None Primary Care Provider Unavailabl e Loyda Jackson APRN, [facility] Primary Care Provider + José Sagastume MD Primary Care Provider [phone] Provider, None Primary Care Provider Unavailabl e Reason for Visit * Reason Comments Medication Refill Encounter Details Date Type Department Care Team (Late st Contact Info) Description 12/25/2022 Refill [facility] - Family [facility] [address] [place] [address] Loyda Jackson, SOLDERING MACHINE FEEDER, FINANCIAL INSTITUTION VICE PRESIDENT [address] [place] [address] Medication Refill Social History Tobacco Use Types [...] 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 No / Unsure 12/16/2022 9:50 AM MAINTENANCE REPAIRER documented as of this encounter Miscellaneous Notes [...] Jackson APRN, [facility] 11/28/22 Office Visit Brown, Loyda M, SOLDERING MACHINE FEEDER, FINANCIAL INSTITUTION VICE PRESIDENT [facility] 11/21/22 Office Visit Loyda Jackson, SOLDERING MACHINE FEEDER, FINANCIAL INSTITUTION VICE PRESIDENT [facility] 09/20/22 Telemedicine Loyda Jackson SOLDERING MACHINE FEEDER, FINANCIAL INSTITUTION VICE PRESIDENT [facility] 07/11/22 Office Visit Loyda Jackson, SOLDERING MACHINE FEEDER, FINANCIAL INSTITUTION VICE PRESIDENT [facility] 06/13/22 Office Visit Loyda Jackson, SOLDERING MACHINE FEEDER, FINANCIAL INSTITUTION VICE PRESIDENT [facility] 04/22/22 Office Visit Loyda Jackson SOLDERING MACHINE FEEDER, FINANCIAL INSTITUTION VICE PRESIDENT [facility] 04/06/22 Office Visit Loyda Jackson, SOLDERING MACHINE FEEDER, FINANCIAL INSTITUTION VICE PRESIDENT [facility] 03/11/22 Office Visit José Sagastume MD [facility] 02/01/22 Office Visit Gunnar Velez MD [facility] Showing recent visits within past 365 days and meeting all other requirements Future Appointments Date Type Provider Dept 01/27/23 Appointment Loyda Jackson APRN, FINANCIAL INSTITUTION VICE PRESIDENT [facility] Showing future appointments within next 90 days and meeting all other requirements TENANCE REPAIRER documented in this encounter Plan of Treatment Not on file documented as of this encounter Visit Diagnoses Diagnosis Alcohol withdrawal syndrome without complication (HCC) documented in this encounter Additional Health Concerns Infection Onset Date Last Indicated Resolved Time COVID - 19 04/06/2023 04/06/2023 04/16/2023 12:1 6 AM MAINTENANCE REPAIRER C. difficile Rule-Out 04/08/2023 04/08/20232023 2:20 PM MAINTENANCE REPAIRER C. difficile Rule-Out 04/19/2023 04/20/20232023 9:22 AM CDT COVID - 19 07/06/2023 07/06/2023 07/06/2023 4:44 PM CDT Assessment Noted Time PHQ-9 Depression Total Score: 0 04/23/19 4:00 PM CDT documented as of this encounter Care Teams Outpatient Therapist Relationship Specialty Start Date End Date José Sagastume MD PCP - General Family Medicine 03/02/20 03/12/23 Loyda Jackson, SOLDERING MACHINE FEEDER, FINANCIAL INSTITUTION VICE PRESIDENT [address] [place] [address] PCP - General Advanced Practice Nurse 03/13/23 04/18/23 Loyda Jackson, SOLDERING MACHINE FEEDER, FINANCIAL INSTITUTION VICE PRESIDENT [address] [place] [address] PCP - General Advanced Practice Nurse 04/19/23 05/08/23 José Sagastume MD PCP - General Family Medicine 05/09/23 05/21/23 Loyda Jakcson, SOLDERING MACHINE FEEDER, FINANCIAL INSTITUTION VICE PRESIDENT [address] [place] [address] PCP - General Advanced Practice Nurse 05/22/23 05/25/23 José Sagastume MD PCP - General Family Medicine 05/26/23 05/27/23 Loyda Jackson, SOLDERING MACHINE FEEDER, FINANCIAL INSTITUTION VICE PRESIDENT [address] [place] [address] PCP - General Advanced Practice Nurse 05/28/23 06/15/23 Provider, None [place] PCP - General 06/16/23 07/05/23 Loyda Jackson, SOLDERING MACHINE FEEDER, FINANCIAL INSTITUTION VICE PRESIDENT [address] [place] [address] PCP - General Advanced Practice Nurse 07/06/23 07/10/23 José Sagastume MD PCP - General Family Medicine 07/11/23 10/11/23 Provider, None [place] PCP - General 10/29/23 Siri Henao APRN, TOE STRIPPER [address] [place] [address] Nurse Practitioner Advanced Practice Nurse 02/17/22 Gregorio Lemus MD [address] [place] [address] Consulting Physician Neurology 02/21/23 documented as of this encounter
--- OUTSIDE RECORDS SUMMARY | 2024-10-01 07:17 | XMS_ITS | Encounter Summary ---
Author Organization [facility] Address [address] [place] [address] Phone Care Team Providers Care Reel Cutter Name Role Phone José Sagastume MD Primary Care Provider [phone] Loyda Jackson APRN, [facility] Primary Care Provider + Siri Henao APRN, STORE KEEPER Unavailable + [phone] Gregorio Lemus MD Unavailable [phone] Loyda Jackson APRN, [facility] Primary Care Provider + José Sagastume MD Primary Care Provider [phone] Loyda Jackson APRN, [facility] Primary Care Provider + José Sagastume MD Primary Care Provider [phone] Loyda Jackson APRN, [facility] Primary Care Provider + Provider, None Primary Care Provider Unavailabl e Loyda Jackson APRN, [facility] Primary Care Provider + José Sagastume MD Primary Care Provider [phone] Provider, None Primary Care Provider Unavailabl e Reason for Visit * Reason Comments Medication Refill Encounter Details Date Type Department Care Team (Late st Contact Info) Description 01/28/2023 Refill [facility] - [facility] [address] [place] [address] José Sagastume MD [address] [place] [address] Medication Refill Social History Tobacco Use Types [...] 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 [...] [facility] 09/20/22 Telemedicine Loyda Jackson APRN, [facility] 07/11/22 Office Visit Loyda Jackson APRN, [facility] 06/13/22 Office Visit Loyda Jackson APRN, [facility] 04/22/22 Office Visit Loyda Jackson APRN, [facility] 04/06/22 Office Visit Loyda Jackson APRN, [facility] 03/11/22 Office Visit José Sagastume MD [facility] Showing recent visits within past 365 days and meeting all other requirements Future Appointments Date Type Provider Dept 04/19/23 Appointment Loyda Jackson APRN, CNP [facility] Showing future appointments within next 90 days and meeting all other requirements [facility] documented in this encounter Plan of Treatment Not on file documented as of this encounter Visit Diagnoses Diagnosis Alcohol withdrawal syndrome without complication (HCC) documented in this encounter Additional Health Concerns Infection Onset Date Last Indicated Resolved Time COVID - 19 04/06/2023 04/06/2023 04/16/2023 12:1 6 AM ASSOCIATE DEAN OF WOMEN C. difficile Rule-Out 04/08/2023 04/08/20232023 2:20 PM ASSOCIATE DEAN OF WOMEN C. difficile Rule-Out 04/19/2023 04/20/20232023 9:22 AM CDT COVID - 19 07/06/2023 07/06/2023 07/06/2023 4:44 PM CDT Assessment Noted Time PHQ-9 Depression Total Score: 0 04/23/19 22 4:00 PM CDT documented as of this encounter Care Teams Reel Cutter Relationship Specialty Start Date End Date José Sagastume MD PCP - General Family Medicine 03/02/20 03/12/23 Loyda Jackson APRN, [facility] [address] [place] [address] PCP - General Advanced Practice Nurse 03/13/23 04/18/23 Loyda Jackson, TACK CLEANER, NUTRITION FACULTY MEMBER [address] [place] [address] PCP - General Advanced Practice Nurse 04/19/23 05/08/23 José Sagastume MD PCP - General Family Medicine 05/09/23 05/21/23 Loyda Jackson, TACK CLEANER, NUTRITION FACULTY MEMBER [address] [place] [address] PCP - General Advanced Practice Nurse 05/22/23 05/25/23 José Sagastume MD PCP - General Family Medicine 05/26/23 05/27/23 Loyda Jackson, TACK CLEANER, NUTRITION FACULTY MEMBER [address] [place] [address] PCP - General Advanced Practice Nurse 05/28/23 06/15/23 Provider, None [place] PCP - General 06/16/23 07/05/23 Loyda Jackson, TACK CLEANER, NUTRITION FACULTY MEMBER [address] [place] [address] PCP - General Advanced Practice Nurse 07/06/23 07/10/23 José Sagastume MD PCP - General Family Medicine 07/11/23 10/11/23 Provider, None [place] PCP - General 10/29/23 Siri Henao, TACK CLEANER, STORE KEEPER [address] [place] [address] Nurse Practitioner Advanced Practice Nurse 02/17/22 Gregorio Lemus MD [address] [place] [address] Consulting Physician Neurology 02/21/23 documented as of this encounter
--- OUTSIDE RECORDS SUMMARY | 2024-10-01 07:17 | XMS_ITS | Encounter Summary ---
Author Organization [facility] Address [address] [place] [address] Phone Care Team Providers Care Pump House Operator Name Role Phone José Sagastume MD Primary Care Provider [phone] Loyda Jackson APRN, [facility] Primary Care Provider + Siri Henao APRN, MILITARY ANALYST Unavailable + [phone] Gregorio Lemus MD Unavailable [phone] Loyda Jackson APRN, [facility] Primary Care Provider + José Sagastume MD Primary Care Provider [phone] Loyda Jackson APRN, [facility] Primary Care Provider + José Sagastume MD Primary Care Provider [phone] Loyda Jackson APRN, [facility] Primary Care Provider + Provider, None Primary Care Provider Unavailabl e Loyda Jackson APRN, [facility] Primary Care Provider + José Sagastume MD Primary Care Provider [phone] Provider, None Primary Care Provider Unavailabl e Reason for Visit * Reason Comments Medication Refill Encounter Details Date Type Department Care Team (Late st Contact Info) Description 02/11/2023 Refill [facility] [address] [place] [address] Sugar Nadia Lewis, PAC [address] [place] [address] Medication Refill Social History Tobacco Use Types [...] 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 Not on file Not on file documented as of this encounter Miscellaneous Notes * Telephone Encounter - Britt Leong RN - 02/11/2023 11:49 AM SURGEON CHIEF Medication failed the protocol, provider to review [...] [facility] 07/11/22 Office Visit Loyda Jackson APRN, [facility] 06/13/22 Office Visit Loyda Jackson APRN, [facility] [place] 04/22/22 Office Visit Loyda Jackson APRN, [facility] 04/06/22 Office Visit Loyda Jackson APRN, [facility] [place] 03/11/22 Office Visit José Sagastume MD [facility] [place] Showing recent visits within past 365 days and meeting all other requirements Future Appointments Date Type Provider Dept 04/19/23 Appointment Loyda Jackson APRN, [facility] [place] Showing future appointments within next 90 days and meeting all other requirements EON CHIEF documented in this encounter Plan of Treatment Not on file documented as of this encounter Visit Diagnoses Diagnosis Chronic bilateral low back pain without sciatica documented in this encounter Additional Health Concerns Infection Onset Date Last Indicated Resolved Time COVID - 19 04/06/2023 04/06/2023 04/16/2023 12:1 6 AM SURGEON CHIEF C. difficile Rule-Out 04/08/2023 04/08/20232023 2:20 PM SURGEON CHIEF C. difficile Rule-Out 04/19/2023 04/20/20232023 9:22 AM CDT COVID - 19 07/06/2023 07/06/2023 07/06/2023 4:44 PM CDT Assessment Noted Time PHQ-9 Depression Total Score: 0 04/23/19 22 4:00 PM CDT documented as of this encounter Care Teams Pump House Operator Relationship Specialty Start Date End Date José Sagastume MD PCP - General Family Medicine 03/02/20 03/12/23 Loyda Jackson APRN, [facility] [address] [place] [address] PCP - General Advanced Practice Nurse 03/13/23 04/18/23 Loyda Jackson CONDITIONER TUMBLER, SENIOR QUALITY ANALYST [address] [place] [address] PCP - General Advanced Practice Nurse 04/19/23 05/08/23 José Sagastume MD PCP - General Family Medicine 05/09/23 05/21/23 Loyda Jackson, CONDITIONER TUMBLER, SENIOR QUALITY ANALYST [facility] [place] [address] PCP - General Advanced Practice Nurse 05/22/23 05/25/23 José Sagastume MD PCP - General Family Medicine 05/26/23 05/27/23 Loyda Jackson, CONDITIONER TUMBLER, SENIOR QUALITY ANALYST [address] [place] [address] PCP - General Advanced Practice Nurse 05/28/23 06/15/23 Provider, None MD PCP - General 06/16/23 07/05/23 Loyda Jackson, CONDITIONER TUMBLER, SENIOR QUALITY ANALYST [address] [place] [address] PCP - General Advanced Practice Nurse 07/06/23 07/10/23 José Sagastume MD PCP - General Family Medicine 07/11/23 10/11/23 Provider, None [place] PCP - General 10/29/23 Siri Henao, CONDITIONER TUMBLER, MILITARY ANALYST [address] [place] [address] Nurse Practitioner Advanced Practice Nurse 02/17/22 Gregorio Lemus MD [address] [place] [address] Consulting Physician Neurology 02/21/23 documented as of this encounter
--- OUTSIDE RECORDS SUMMARY | 2024-10-01 07:17 | XMS_ITS | Encounter Summary ---
Author Organization [facility] Address [address] [place] [address] Phone Care Team Providers Care Order Desk Clerk Name Role Phone José Sagastume MD Primary Care Provider [phone] Loyda Jackson APRN, [facility] Primary Care Provider + Siri Henao APRN, GAUGE CONTROLLER Unavailable + [phone] Gregorio Lemus MD Unavailable [phone] Loyda Jackson APRN, [facility] Primary Care Provider + José Sagastume MD Primary Care Provider [phone] Loyda Jackson APRN, [facility] Primary Care Provider + José Sagastume MD Primary Care Provider [phone] Loyda Jackson APRN, [facility] Primary Care Provider + Provider, None Primary Care Provider Unavailabl e Loyda Jackson APRN, [facility] Primary Care Provider + José Sagastume MD Primary Care Provider [phone] Provider, None Primary Care Provider Unavailabl e Reason for Visit * Reason Comments Medication Refill Encounter Details Date Type Department Care Team (Late st Contact Info) Description 02/13/2023 Refill [facility] [address] [place] [address] Loyda Jackson, TRAVEL COORDINATOR, FISHERIES MANAGER [address] [place] [address] Medication Refill Social History Tobacco Use Types [...] 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 on file Not [...] 11/28/22 Office Visit Loyda Jackson APRN, [facility] 11/21/22 Office Visit Loyda Jackson APRN, CNP [facility] 09/20/22 Telemedicine Loyda Jackson APRN, CNP [facility] [place] Showing recent visits within past 182 days and meeting all other requirements Future Appointments Date Type Provider Dept 04/19/23 Appointment Loyda Jackson APRN, CNP [facility] Showing future appointments within next 90 days and meeting all other requirements Passed - Has an encounter in the past 6 months with a depression, anxiety, adjustment disorder, OCD, or PTSD visit diagnosis [facility] documented in this encounter Plan of Treatment Not on file documented as of this encounter Visit Diagnoses Diagnosis Anxiety Anxiety state, unspecified documented in this encounter Additional Health Concerns Infection Onset Date Last Indicated Resolved Time COVID - 19 04/06/2023 04/06/2023 04/16/2023 12:1 6 AM DIRECTOR REHABILITATION PROGRAM C. difficile Rule-Out 04/08/2023 04/08/20232023 2:20 PM DIRECTOR REHABILITATION PROGRAM C. difficile Rule-Out 04/19/2023 04/20/20232023 9:22 AM CDT COVID - 19 07/06/2023 07/06/2023 07/06/2023 4:44 PM CDT Assessment Noted Time PHQ-9 Depression Total Score: 0 04/23/19 4:00 PM CDT documented as of this encounter Care Teams Order Desk Clerk Relationship Specialty Start Date End Date José Sagastume MD PCP - General Family Medicine 03/02/20 03/12/23 Loyda Jackson APRN, CNP [address] [place] [address] PCP - General Advanced Practice Nurse 03/13/23 04/18/23 Loyda Jackson APRN, CNP [address] [place] [address] PCP - General Advanced Practice Nurse 04/19/23 05/08/23 José Sagastume MD PCP - General Family Medicine 05/09/23 05/21/23 Loyda Jackson, TRAVEL COORDINATOR, FISHERIES MANAGER [address] [place] [id number] PCP - General Advanced Practice Nurse 05/22/23 05/25/23 José Sagastume MD PCP - General Family Medicine 05/26/23 05/27/23 Loyda Jackson, TRAVEL COORDINATOR, FISHERIES MANAGER [address] [place] [address] PCP - General Advanced Practice Nurse 05/28/23 06/15/23 Provider, None [place] PCP - General 06/16/23 07/05/23 Loyda Jackson, TRAVEL COORDINATOR, FISHERIES MANAGER [address] [place] [address] PCP - General Advanced Practice Nurse 07/06/23 07/10/23 José Sagastume MD PCP - General Family Medicine 07/11/23 10/11/23 Provider, None [place] PCP - General 10/29/23 Siri Henao, TRAVEL COORDINATOR, GAUGE CONTROLLER [address] [place] [address] Nurse Practitioner Advanced Practice Nurse 02/17/22 Gregorio Lemus MD [address] [place] [address] Consulting Physician Neurology 02/21/23 documented as of this encounter
--- OUTSIDE RECORDS SUMMARY | 2024-10-01 07:17 | XMS_ITS | Patient Health Record ---
Author Organization [facility] Address [address] [place] [address] Care Team Providers Care Binder Roller Name Role Phone Lilia Huang Primary Care Provider Juan Smith Unavailable [phone] Joellen Hoffman Unavailable [phone] Pauline Proctor Unavailable [phone] Marquise Jurado Unavailable [phone] Allergies Allergen (clinical drug ingredient) Drug/Non Drug Allergy documented on EMR Reaction Allergy Type Onset Date Status erythromycin Erythromycin Ethylsuccinate Unknown Drug Allergy Active tramadol Ultram Unknown Drug Allergy Active Substance with sulfonamide structure and antibacterial mechanism of action (substance) Sulfa Antibiotics Unknown Drug Allergy Active Results Component Value Reference Range Notes CBC With Differential/Platel et* Reviewed date:09/20/2024 03:26:16 PM Interpretation: Performing Lab:[facility] [place], [address] [facility], [place], Phone - [phone], Director - Yang Notes/Report: WBC 5.8 3.4-10.8 x10E3/uL RBC 4.08 3.77-5.28 x10E6/uL Hemoglobin 13.5 11.1-15.9 g/dL Hematocrit 41.4 34.0-46.6 % MCV 102 79-97 fL MCH 33.1 26.6-33.0 pg MCHC 32.6 31.5-35.7 g/dL RDW 13.5 11.7-15.4 % Platelets 366 150-450 x10E3/uL Neutrophils 67 Not Estab. % Lymphs 22 Not Estab. % Monocytes 9 Not Estab. % Eos 1 Not Estab. % Basos 1 Not Estab. % Neutrophils (Absolute) 3.8 1.4-7.0 x10E3/uL Lymphs (Absolute) 1.3 0.7-3.1 x10E3/uL Monocytes(Absolute) 0.5 0.1-0.9 x10E3/uL Eos (Absolute) 0.1 0.0-0.4 x10E3/uL Baso (Absolute) 0.1 0.0-0.2 x10E3/uL Immature Granulocytes 0 Not Estab. % Immature Grans (Abs) 0.0 0.0-0.1 x10E3/uL CMP 14 Comprehensive Metabol ic Panel* Reviewed date:09/20/2024 03:26:16 PM Interpretation: Performing Lab:[facility] [place], [employer] [facility], Phone - [phone], [facility] Notes/Report: Glucose TNP Test not performed. Serum was in contact with cells when received which will make the result inaccurate. BUN 8 8-27 mg/dL Creatinine 0.68 0.57-1.00 mg/dL eGFR 98 >59 mL/min/1.73 BUN/Creatinine Ratio 12 12-28 Sodium 138 134-144 mmol/L Potassium TNP Test not performed. Serum was in contact with cells when received which will make the result inaccurate. Chloride 102 96-106 mmol/L Carbon Dioxide, Total 17 20-29 mmol/L Calcium 10.1 8.7-10.3 mg/dL Protein, Total 7.0 6.0-8.5 g/dL Albumin 4.7 3.9-4.9 g/dL Globulin, Total 2.3 1.5-4.5 g/dL Bilirubin, Total <0.2 0.0-1.2 mg/dL Alkaline Phosphatase 68 44-121 IU/L AST (SGOT) 18 0-40 IU/L ALT (SGPT) 12 0-32 IU/L QuantiFERON-TB Gold Plus ([id number]) Reviewed date:09/20/2024 03:26:16 PM Interpretation: Performing Lab:[facility] [place], [address] [facility], Phone - [phone], Director - [facility] Notes/Report: QuantiFERON-TB Gold Plus TNP Test not performed due to the age of this specimen. Chemiluminescence immunoassay methodology Request Problem TNP Test not performed due to the age of this specimen. TEST: [id number] QuantiFERON-TB Gold Plus Request Problem TNP Test not performed due to the age of this specimen. TEST: [id number] QuantiFERON-TB Gold Plus Breathalyzer Reviewed date:09/13/2024 01:07:39 PM Interpretation: Performing Lab: Notes/Report: KEYON 0.000 14 Panel Urine Drug Screen Reviewed date:09/13/2024 01:07:40 PM Interpretation: Performing Lab: Notes/Report: THC neg EARL neg MOP (OPI) neg AMP neg MET neg BAR neg BZO neg MDMA neg MTD neg OXY neg PCP neg BUP pos TCA neg FTY neg Reason For Referral Reason Posterior neck pain and mid back pain Diagnosis 1 Dorsalgia of multipl e sites in spine (M54.9) Diagnosis 2 Cervicalgia (M54.2) Referral Organization [facility] Referring Provider First Name Marquise Referring Provider Last Name Adrien Referring Provider Speciality [facility] Referred Provider 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, [place] [facility], [facility], Nell Steve RN 09/30/2024 11:28:57 AM >[employer] takes insurance Clinical Notes Nell Steve RN 11:29:34 AM >, [employer] , [address] [place] [address]., , fax [phone] Referral Priority Routine Medications Medication SIG (Take, Route, Frequency, Duration) Notes Start Date End Date Status Docusate Sodium 100 MG 1 capsule as need ed Orally Once a day Active Methocarbamol 750 MG 1 tablet Orally every 12 hours; Duration: 14 days As needed back pain Active Zolpidem Tartrate 5 MG 1 tablet at bedti me Orally Once a day Active LORazepam 0.5 MG 1 tablet at bedtime as needed Orally Once a day 09/26/2024 Active Flonase Allergy Relief 50 MCG/ACT 1 spray in each nostril Nasally Twice a day; Duration: 30 days 09/30/2024 Active Donepezil HCl 5 MG 1 tablet at bedtime Orally Once a day Active Multi Vitamin - 1 tablet Orally Once a day; Duration: 30 days 09/13/2024 Active hydrOXYzine Pamoate 25 MG 1-2 capsules O rally every 4 hours as needed for anxiety, agitation, or inability to sleep. Do not give within 4 hours of diphenhydramine.; Duration: 30 days 09/13/2024 Active Simethicone 125 MG 1 tablet after meals and at bedtime as needed Orally Four times a day Active QUEtiapine Fumarate 100 MG 1 tablet Oral ly bedtime; Duration: 30 days 09/26/2024 Active Melatonin 5 MG 1 tablet at bedtime as needed Orally Once a day; Duration: 30 days 09/13/2024 Not-Takin g Amitriptyline HCl 50 MG 1 tablet at bedt ruthy Orally Once a day Not-Taking Cetirizine HCl 10 MG 1 tablet as needed Orally Once a day; Duration: 30 day(s) 09/30/2024 Active Social History Tobacco Use: Social History Observation Description Date Details (start date - stop date) Never Smoker NA - NA Sex Assigned At : Social History Observation Description Sex Assigned At Female PRAPARE Question Answer Notes Are you a refugee? No What country are you from? [place] What is your current housing situation? I have h ousing What is the highest level of school that you have finished? High school diploma or GED What is your current work situation? Unemployed and seeking work Has lack of transportation k ept you from medical appointments, meetings, work or from getting things needed for daily living? No How often do you see or talk to people that you care about and feel close to? (For example: talking to friends on the phone, visiting friends or family, going to hindu or club meetings) 1 or 2 times a week Date Completed/Updated: 07/18/2023 Are you worried about losing your housing? Yes In the past year, have you o r any family members you live with been unable to get any of the following when it was really needed? Check all that apply Food,Clothing How stressed are you? Stress is when someone feels tense, nervous, anxious, or can\t sleep at night because their mind is troubled Very much In the past year have you sp ent more than 2 nights in a row in a half-way, residential, chcf center, or juvenile correctional facility? No Do you feel physically and e motionally safe where you currently live? Yes In the past year, have you b een afraid of your partner or ex-partner? No PRAPARE Score: 0 Tobacco Control (Standard) Question Answer Notes Tobacco use: Nonsmoker Problems Problem Type SNOMED Code ICD Code Onset Dates Problem Status W/U Status Risk Notes Problem Cervicalgia (32394267) Cervicalgia (M54.2) Active confirmed Problem Hyperlipidemia (33260600) Hyperlipidemia (E78.5) 07/21/19 24 Active confirmed Problem Insomnia (423512790) Insomnia (G47.00) Active confirmed Problem Posttraumatic stress disorder (12612709) PTSD (post-traumatic stress disorder) (F43.10) 07/09/19 14 Active confirmed Problem Generalized anxiety disorder (71746265) PATRICIA (generalized anxiety disorder) (F41.1) 07/09/19 14 Active confirmed Problem Screening for malignant neoplasm of cervix (804663527) Cervical cancer screening (Z12.4) Active confirmed Problem Iron deficiency anemia (05705505) Iron deficiency anemia (D50.9) 07/21/19 24 Active confirmed Problem Colon cancer screening (976249544) Colon cancer screening (Z12.11) Active confirmed Problem Overweight (297246266) Over weight (E66.3) Active confirmed Problem Chronic fatigue syndrome (85059986) Chronic fatigue (R53.82) Active confirmed Problem Alcohol use disorder (6865240763) Alcohol use disorder (F10.99) Active confirmed Problem Pain in left foot (287995816557904) Left foot pain (M79.672) Active confirmed Problem Backache (003218550) Dorsalgia of multiple sites in spine (M54.9) Active confirmed Problem Posterior rhinorrhea (43988442) Post-nasal drip (R09.82) Active confirmed Problem Physical examination, complete (33925961) Adult general medical examination (Z00.00) Active confirmed Problem Breast cancer screening (869348817) Breast cancer screening (Z12.31) Active confirmed Vital Signs Heart Rate 62 /min 09/30/2024 patient c/o sti ff neck/shoulders, L foot swelling and arthritits this visit. Provider aware Temperature 97.9 degrees Fahrenheit 09/30/2024 hanna ent c/o stiff neck/shoulders, L foot swelling and arthritits this visit. Provider aware Respiratory Rate 18 /min 09/30/2024 patient c/o stiff neck/shoulders, L foot swelling and arthritits this visit. Provider aware Oximetry 98 % 09/30/2024 patient c/o sti ff neck/shoulders, L foot swelling and arthritits this visit. Provider aware Blood pressure diastolic 86 mm Hg 09/30/2024 pat ient c/o stiff neck/shoulders, L foot swelling and arthritits this visit. Provider aware Height 61.25 in 09/30/2024 patient c/o sti ff neck/shoulders, L foot swelling and arthritits this visit. Provider aware Blood pressure systolic 124 mm Hg 09/30/2024 hanna ent c/o stiff neck/shoulders, L foot swelling and arthritits this visit. Provider aware Weight 139.6 lbs 09/30/2024 patient c/o sti ff neck/shoulders, L foot swelling and arthritits this visit. Provider aware BMI 26.16 kg/m2 09/30/2024 patient c/o sti ff neck/shoulders, L foot swelling and arthritits this visit. Provider aware Encounters Encounter Location Date Provider Diagnosis [facility] [place] [address] 2024 Marquise Jurado [facility] [address] [place] [address] 09/30/2024 Marquise Jurado PATRICIA (generalized anxiety disorder) F41.1 ; Post-nasal drip R09.82 ; Breast cancer screening Z12.31 ; Colon cancer screening Z12.11 ; Cervicalgia M54.2 ; Cervical cancer screening Z12.4 ; Dorsalgia of multiple sites in spine M54.9 ; Left foot pain M79.672 and Over weight E66.3 [facility] [address] [place] [address] 09/09/2024 Juan Smith Alcohol use disorder F10.99 ; PATRICIA (generalized anxiety disorder) F41.1 ; PTSD (post-traumatic stress disorder) F43.10 ; Iron deficiency anemia D50.9 ; Over weight E66.3 ; Chronic fatigue R53.82 ; Hyperlipidemia E78.5 ; Exposure to potential infection Z20.9 and Breast cancer screening by mammogram Z12.31 [place] [address] [address] [place] [address] 09/13/2024 Marquise Jurado Adult general medical examination Z00.00 and Alcohol use disorder F10.99 [place] [address] [place] [address] 09/13/2024 Pauline Proctor [address] [address] 09/26/2024 Joellen Hoffman PATRICIA (generalized anxiety disorder) F41.1 and Insomnia G47.00 [place] [address] [place] [address] 09/27/2024 Joellen Hoffman [address] [address] 08/15/2024 Lilia Huang [address] [address] 08/15/2024 Lilia Huang [place] [address] [facility] [address] 09/05/2024 Lilia Huang Assessments Encounter Date Diagnosis (ICD Code) Assessment Notes Treatment Notes Treatment Clinical Notes Section Notes 09/09/2024 PATRICIA (generalized anxiety disorder) (ICD-10 - F41.1) DISCUSSED DANGERS OF SEDATIVE USE, INCLUDING INJURY AND PREMATURE (ABOUT 5X BASELINE). 09/09/2024 Alcohol use disorder (ICD-10 - F10.99) SHE DISCUSSED ADMISSION TO [facility] WITH NURSING STAFF AND THEY ARE INITIATING THE PROCESS. SHE DOES NOT NEED AMBULATORY W/D MANAGEMENT AT THIS TIME. 09/13/2024 Adult general medical examination (ICD-10 - Z00.00) SUPR Programs: Based on an evaluation of [facility] Patient Placement Criteria, a recommendation for placement in Level III treatment is indicated and approved. Confirmation of diagnosis is documented in the initial treatment plan.Admit to the [facility] and initiate standing/protocol orders: The following PRN medications may be self-administered by patients under the supervision of approved staff or administered by nursing staff: Ibuprofen 200mg, 2-4 tablets by mouth (with food) every 6 hours as needed for pain (unless on lithium). (NOTE: Ibuprofen and acetaminophen may be given together, but alternating is recommended for continuous pain relief. Guaifenesin 400 mg, 1 tablet by mouth every four hours as needed for cough and chest congestion (take with large glass of water). Loratadine 10 mg, 1 tablet by mouth daily as needed for allergies, watery itchy eyes, or sinus drainage. Throat Lozenges, up to 4 tablets by mouth every three to four hours as needed for sore throat. Antacid tablets, 1-2 tablets by mouth every one to two hours as needed for indigestion or heart burn. If the client prefers liquid, could use: Liquid Antacid : 1 ounce by mouth up to four times daily as needed for indigestion or heartburn Omeprazole 20mg, 1 capsule by mouth once daily for 14 days for frequent heartburn (frequent heartburn is more than 2 episodes per week). Do not exceed 14 days. Do not give to client already taking a proton-pump inhibitor: esomeprazole (Nexium), lansoprazole (Prevacid), pantoprazole (Protonix), rabeprazole (Aciphex), dexlansoprazole (Dexilant) Zofran ODT disintegrating (under the tongue) 4 mg, 1-2 tablets every 8 hours as needed for nausea/vomiting. Milk of Magnesia (MOM): 1 ounce (30 milliliters) by mouth every day as needed for constipation. OR Miralax: Stir and fully dissolve 17 grams (1 packet or 1 capful to measured line) in any 4 to 8 ounces of beverage then drink once daily for constipation. Do not use for more than 7 days. OR Docusate 100 mg, 1 capsule twice daily as needed for constipation Hydrocortisone 1% Cream, apply topically (to the skin) to the affected area up to three times daily as needed for itching or inflammation (avoid eyes and genitals). 2% Antifungal Cream, apply topically (to the skin) as directed as needed to affected areas for athlete's foot or jock itch. Triple Antibiotic Ointment, apply topically (to the skin) up to three times daily as needed for minor cuts and scrapes. Carmex or Chapstick, apply topically (to the skin) as needed for chapped lips and skin. Orajel, apply to affected areas as needed for mouth or tooth pain. Lubricating Eye Drops, instill 1-2 drops to the affected eye(s) as needed for dry/irritated eye(s). Hemorrhoid medications, apply to affected area according to directions as needed for hemorrhoid discomfort and itch. Nix (Permethrin 1%) cream 2 ounces, apply topically (to the skin) as directed as needed for head lice. Sunscreen 30 SPF, Apply to exposed skin prior to exposure to sun. The following PRN medications must be approved by nursing staff before self-administratio n by patients: Diphenhydramine 25 mg, 2 tablets by mouth every 4 hours as needed for allergic reaction or itchy rash. Caution: Do not use hydroxyzine within 4 hours of diphenhydramine and vice versa. Loperamide 2 mg capsules, may give two capsules by mouth for the initial dose, followed by one capsule up to 3 times a day as needed for diarrhea. Acetaminophen 500 mg, 1 - 2 tablets by mouth every six hours as needed for pain. (NOTE: Ibuprofen and acetaminophen may be given together, but alternating is recommended for continuous pain relief). Oxygen-May administer oxygen 2L/min via nasal cannula if O2 saturation is less than 92%, AND client complains of shortness of breath. Target O2 saturation is 94-98%. Caution: Remember too much oxygen can be detrimental to a client with COPD. Oxygen is a drug and should be delivered by trained staff only. Nurses may remove superficial splinters and sutures from skin lacerations. May apply gauze or bandages to any weeping wounds. Contact nursing if there is pus, a foul odor, increased pain/redness/swell ing, or if soaking through bandages. 09/26/2024 Insomnia (ICD-10 - G47.00) 09/26/2024 PATRICIA (generalized anxiety disorder) (ICD-10 - F41.1) 09/30/2024 PATRICIA (generalized anxiety disorder) (ICD-10 - F41.1) Educated the patient to keep her appt with Joellen Hoffman to discuss her anxiety. Educated the patient on breathing techniques to lower anxiety levels. 09/30/2024 Post-nasal drip (ICD-10 - R09.82) 09/30/2024 Breast cancer screening (ICD-10 - Z12.31) 09/13/2024 Alcohol use disorder (ICD-10 - F10.99) 09/09/2024 PTSD (post-traumatic stress disorder) (ICD-10 - F43.10) 09/09/2024 Iron deficiency anemia (ICD-10 - D50.9) 09/30/2024 Colon cancer screening (ICD-10 - Z12.11) 09/09/2024 Over weight (ICD-10 - E66.3) 09/30/2024 Cervicalgia (ICD-10 - M54.2) 09/30/2024 Cervical cancer screening (ICD-10 - Z12.4) Patient has been educated on calling her insurance to find a ADMINISTRATIVE PROJECT COORDINATOR provider in network to get a well-woman exam and cervical exam. 09/09/2024 Chronic fatigue (ICD-10 - R53.82) 09/09/2024 Hyperlipidemia (ICD-10 - E78.5) 09/30/2024 Dorsalgia of multiple sites in spine [...] to address further concerns with her foot. 09/09/2024 Exposure to potential infection (ICD-10 - Z20.9) 09/09/2024 Breast cancer screening by mammogram (ICD-10 - Z12.31) 09/30/2024 Over weight (ICD-10 - E66.3) 09/09/2024 Other [place] PDMP: 577645419/50 5Naltrexone Hcl30.15835 MGNAAluko Oyindamola - [id number]- [facility] , [id number] [address] 05/22/2024LORa zepam60.0300. 5 MGNAAluko Oyindamola - [id number]- [facility] , [id number] 05/22/2024Zolp idem Wfeeaigd71.03 05 MGNAAluko Oyindamola - [id number][facility] [place], [id number] [address] 08/02/2024Gaba lhfxva95.0103 00 MGNANA - [id number][facility] [place], [id number] [address] 05/22/2024LORa zepam60.0300. 5 MGNAAluko Oyindamola - [id number][facility] [place], [id number] [address] 05/22/2024Zolp idem Hmzkbxre81.03 05 MGNAAluko Oyindamola - [id number][facility], [id number] [address] 05/22/2024Nalt rexone Hcl30.00087 MGNAAluko Oyindamola - [id number][facility], [id number] [address] 05/22/2024LORa zepam 05 MG OTRWSB21.0300 .5 MGNAAluko Oyindamola - [id number]- [id number] [address] 05/22/2024Zolp idem Bwxujrnm94.03 05 MGNAAluko Oyindamola - [id number][id number] [address] 05/22/2024Nalt rexone Hcl30.93044 MGNAAluko Oyindamola - [id number][facility]2[place]1 09/13/2024 Other Continue treatment as recommended by [facility] staff. Encouraged patient to obtain routine medical care with patient's own primary care provider or establish as a patient at [facility] if no current primary care provider. 09/13/2024 Other Clinician met w ith client to assess needs for residential services. Clinician gathered information regarding historical presentation of mental health and substance use symptoms including withdrawal, HIV Risk assessment, psychiatric hospitalization history and presenting concern. Clinician conducted PHQ9 and CSSRS assessments as well as social drivers of health screening for the purposes of identifying additional service needs. Plan Of Treatment Future Test Test Name Order Date HIV Screen *HIV 1, 2 Ab, p24 Ag ([id number]) 09/09/2024 Occult Blood, Fecal, [place] (607363) 025 Vitamin B12 and Folate 09/09/2024 Iron and TIBC* 09/09/2024 CBC With Differential/Platelet* 09/10/19 25 Hepatitis B Surface Antigen (HBsAg Scree n) 09/09/2024 Hepatitis C Virus Antibody w/Rflx to Nate ntitative Real-time PCR ([id number]) 09/09/2024 Lipid Panel* 09/09/2024 CMP 14 Comprehensive Metabolic Panel* TSH Rfx on Abnormal to Free T4 5 QuantiFERON-TB Gold Plus ([id number]) 2024 Rapid Plasma Reagin (RPR) Te st With Reflex to Quantitative RPR and Confirmatory Treponema pallidum Antibodies 09/09/2024 Mammogram Breast - Bilateral Screening with ABUS, diagnostic mammogram/ultrasound, and/or biopsy as clinically indicated 09/09/2024 Xray : Neck 09/30/2024 Next Appt Details Provider Name:Marquise dallas, 10/04/2024 01:00:00 PM, [address], [place], [address], Provider Name:Joellen Hoffman , 10/10/2024 10:00:00 AM, [address], [place], [address], Insurance Providers Payer Name Payer Address Payer Phone Subscriber Number Group Number Insured Name Patient Relationship to Insured Coverage Start Date Coverage End Date MEDICAID [address] [place] [address] [id number] Malu Wilburn Self - patient is the insured 5 [facility] Attn Claims Department [address] [place] [address] [phone] [id number] AkilaMaryMalu Self - patient is the insured 5 MEDICAID [facility] [address] [place] [address] [id number] DamiennoniMalu henderson Self - patient is the insured 5 5 [facility] Attn Claims Department [address] [place] [address] [phone] DamiennoniMalu henderson Self - patient is the insured 5 Medications Administered Medication Instructions Date of Administration Dosage Notes Vivitrol 07/19/2023 380 mg Ju Ortiz 07/19/2023 02:20 PM CDT >Given Lt Gluteus, tolerated well. Vivitrol info, wallet card, bracelet, & necklace given to client. Aware of next due date & waiting on insurance approval. Medical (General) History Medical History History ICD Code Insomnia anxiety Surgical History Surgery Date(Month/Year) mini tummy tuck breast augmentation dupuytren contracture surgery in both nds Hospitalization History Reason Date(Month/Year) child x3 [facility] for Alcohol detox
--- OUTSIDE RECORDS SUMMARY | 2024-10-01 07:17 | XMS_ITS | Encounter Summary ---
Author Organization [facility] Address [address] [place] [address] Phone Care Team Providers Care Sand Hauler Name Role Phone José Sagastume MD Primary Care Provider [phone] Loyda Jackson APRN, [facility] Primary Care Provider + Siri Henao APRN, FILM DEVELOPING MACHINE OPERATOR Unavailable + [phone] Gregorio Lemus MD Unavailable [phone] Loyda Jackson APRN, [facility] Primary Care Provider + José Sagastume MD Primary Care Provider [phone] Loyda Jackson APRN, [facility] Primary Care Provider + José Sagastume MD Primary Care Provider [phone] Loyda Jackson APRN, [facility] Primary Care Provider + Provider, None Primary Care Provider Unavailabl e Loyda Jackson APRN, [facility] Primary Care Provider + José Sagastume MD Primary Care Provider [phone] Provider, None Primary Care Provider Unavailabl e Reason for Visit * Reason Comments Medication Refill Encounter Details Date Type Department Care Team (Late st Contact Info) Description 02/19/2023 Refill [facility] - [facility] [address] [facility] [address] José Sagastume MD [address] [place] [address] Medication Refill Social History Tobacco Use Types [...] 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 Not on [...] [facility] 09/20/22 Telemedicine Loyda Jackson APRN, CASTING CLEANER [facility] 07/11/22 Office Visit Loyda Jackson ABSTRACT MAKER, [facility] 06/13/22 Office Visit Loyda Jackson APRN, [facility] 04/22/22 Office Visit Loyda Jackson APRN, [facility] 04/06/22 Office Visit Loyda Jackson APRN, [facility] 03/11/22 Office Visit José Sagastume MD [facility] Showing recent visits within past 365 days and meeting all other requirements Future Appointments Date Type Provider Dept 04/19/23 Appointment Loyda Jackson APRN, [facility] Showing future appointments within next 90 days and meeting all other requirements AUDIT MANAGER documented in this encounter Plan of Treatment Not on file documented as of this encounter Visit Diagnoses Diagnosis Alcohol withdrawal syndrome without complication (HCC) documented in this encounter Additional Health Concerns Infection Onset Date Last Indicated Resolved Time COVID - 19 04/06/2023 04/06/2023 04/16/2023 12:1 6 AM IT AUDIT MANAGER C. difficile Rule-Out 04/08/2023 04/08/20232023 2:20 PM IT AUDIT MANAGER C. difficile Rule-Out 04/19/2023 04/20/20232023 9:22 AM CDT COVID - 19 07/06/2023 07/06/2023 07/06/2023 4:44 PM CDT Assessment Noted Time PHQ-9 Depression Total Score: 0 04/23/19 22 4:00 PM CDT documented as of this encounter Care Teams Sand Hauler Relationship Specialty Start Date End Date José Sagastume MD PCP - General Family Medicine 03/02/20 03/12/23 Loyda Jackson APRN, CASTING CLEANER [address] [place] [address] PCP - General Advanced Practice Nurse 03/13/23 04/18/23 Loyda Jackson, ABSTRACT MAKER, CASTING CLEANER [address] [place] [address] PCP - General Advanced Practice Nurse 04/19/23 05/08/23 José Sagastume MD PCP - General Family Medicine 05/09/23 05/21/23 Loyda Jackson ABSTRACT MAKER, CASTING CLEANER [address] [place] [address] PCP - General Advanced Practice Nurse 05/22/23 05/25/23 José Sagastume MD PCP - General Family Medicine 05/26/23 05/27/23 Loyda Jackson, ABSTRACT MAKER, CASTING CLEANER [address] [place] [address] PCP - General Advanced Practice Nurse 05/28/23 06/15/23 Provider, None [place] PCP - General 06/16/23 07/05/23 Loyda Jackson, ABSTRACT MAKER, CASTING CLEANER [address] [place] [address] PCP - General Advanced Practice Nurse 07/06/23 07/10/23 José Sagastume MD PCP - General Family Medicine 07/11/23 10/11/23 Provider, None [place] PCP - General 10/29/23 Siri Henao, ABSTRACT MAKER, FILM DEVELOPING MACHINE OPERATOR [address] [place] [address] Nurse Practitioner Advanced Practice Nurse 02/17/22 Gregorio Lemus MD [address] [place] [address] Consulting Physician Neurology 02/21/23 documented as of this encounter
--- OUTSIDE RECORDS SUMMARY | 2024-10-01 07:17 | XMS_ITS | Encounter Summary ---
Author Organization [facility] Address [address] [place] [address] Phone Care Team Providers Care Veneer Jointer Offbearer Name Role Phone José Sagastume MD Primary Care Provider [phone] Loyda Jackson APRN, [facility] Primary Care Provider + Siri Henao APRN, MONOGRAM AND LETTER PASTER Unavailable + [phone] Gregorio Lemus MD Unavailable +[phone] Loyda Jackson APRN, [facility] Primary Care Provider + José Sagastume MD Primary Care Provider [phone] Loyda Jackson APRN, [facility] Primary Care Provider + José Sagastume MD Primary Care Provider [phone] Loyda Jackson APRN, [facility] Primary Care Provider + Provider, None Primary Care Provider Unavailabl e Loyda Jackson APRN, [facility] Primary Care Provider + José Sagastume MD Primary Care Provider [phone] Provider, None Primary Care Provider Unavailabl e Reason for Visit * Reason Comments Medication Refill Encounter Details Date Type Department Care Team (Late st Contact Info) Description 01/01/2023 Refill [facility] [address] [place] [address] José Sagastume MD [address] [place] [address] Medication Refill Social History Tobacco Use Types [...] 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 No / Unsure 12/16/2022 9:50 AM GROOMING SALON MANAGER documented as of this encounter Miscellaneous Notes * Telephone Encounter - Alanna Alfredo RN - 01/02/2023 12:30 PM CST Last Vitamin D level 04/22/22 - 43 Per nursing clinical judgement, provider to review and approve the medication(s) order(s) if appropriate. Requested Prescriptions Pending Prescriptions Disp Refills ergocalciferol (VITAMIN D) 36637 UNIT Capsule [Pharmacy Med Name: Vitamin D (Ergocalciferol) 1.25 MG (77343 UT) Oral Capsule] 12 Capsule 0 Sig: Take 1 capsule by mouth once a week Vitamin Supplements (Adult) Protocol Passed - 01/01/2023 12:43 PM Passed - Visit with relevant provider in past 12 months or upcoming 90 days Recent Visits Date Type Provider Dept 12/16/22 Office Visit Loyda Jackson APRN, [facility] 11/28/22 Office Visit Brown, Loyda M, DECK SPECIALIST, WORKERS' COMPENSATION COMMISSIONER [facility] 11/21/22 Office Visit Loyda Jackson, DECK SPECIALIST, WORKERS' COMPENSATION COMMISSIONER [facility] 09/20/22 Telemedicine Loyda Jackson, DECK SPECIALIST, WORKERS' COMPENSATION COMMISSIONER [facility] 07/11/22 Office Visit Loyda Jackson, DECK SPECIALIST, WORKERS' COMPENSATION COMMISSIONER [facility] 06/13/22 Office Visit Loyda Jackson, DECK SPECIALIST, WORKERS' COMPENSATION COMMISSIONER [facility] 04/22/22 Office Visit Loyda Jackson, DECK SPECIALIST, WORKERS' COMPENSATION COMMISSIONER [facility] 04/06/22 Office Visit Loyda Jackson, DECK SPECIALIST, WORKERS' COMPENSATION COMMISSIONER [facility] 03/11/22 Office Visit José Sagastume MD [facility] 02/01/22 Office Visit [facility] recent visits within past 365 days and meeting all other requirements Future Appointments Date Type Provider Dept 01/27/23 Appointment Loyda Jackson APRN, WORKERS' COMPENSATION COMMISSIONER [facility] Showing future appointments within next 90 days and meeting all other requirements Passed - Vitamin D dose not greater than 1.25mg MING SALON MANAGER documented in this encounter Plan of Treatment Not on file documented as of this encounter Visit Diagnoses Not on filedocumented in this encounter Additional Health Concerns Infection Onset Date Last Indicated Resolved Time COVID - 19 04/06/2023 04/06/2023 04/16/2023 12:1 6 AM GROOMING SALON MANAGER C. difficile Rule-Out 04/08/2023 04/08/20232023 2:20 PM GROOMING SALON MANAGER C. difficile Rule-Out 04/19/2023 04/20/20232023 9:22 AM CDT COVID - 19 07/06/2023 07/06/2023 07/06/2023 4:44 PM CDT Assessment Noted Time PHQ-9 Depression Total Score: 0 04/23/19 4:00 PM CDT documented as of this encounter Care Teams Veneer Jointer Offbearer Relationship Specialty Start Date End Date José Sagastume MD PCP - General Family Medicine 03/02/20 03/12/23 Loyda Jackson, DECK SPECIALIST, WORKERS' COMPENSATION COMMISSIONER [address] [place] [address] PCP - General Advanced Practice Nurse 03/13/23 04/18/23 Loyda Jackson, DECK SPECIALIST, WORKERS' COMPENSATION COMMISSIONER [address] [place] [address] PCP - General Advanced Practice Nurse 04/19/23 05/08/23 José Sagastume MD PCP - General Family Medicine 05/09/23 05/21/23 Loyda Jackson, DECK SPECIALIST, WORKERS' COMPENSATION COMMISSIONER [address] [place] [address] PCP - General Advanced Practice Nurse 05/22/23 05/25/23 José Sagastume MD PCP - General Family Medicine 05/26/23 05/27/23 Loyda Jackson, DECK SPECIALIST, WORKERS' COMPENSATION COMMISSIONER [address] [place] [address] PCP - General Advanced Practice Nurse 05/28/23 06/15/23 Provider, None [place] PCP - General 06/16/23 07/05/23 Loyda Jackson, DECK SPECIALIST, WORKERS' COMPENSATION COMMISSIONER [address] [place] [address] PCP - General Advanced Practice Nurse 07/06/23 07/10/23 José Sagastume MD PCP - General Family Medicine 07/11/23 10/11/23 Provider, None [place] PCP - General 10/29/23 Siri Henao APRN, MONOGRAM AND LETTER PASTER [address] [place] [address] Nurse Practitioner Advanced Practice Nurse 02/17/22 Gregorio Lemus MD [address] [place] [address] Consulting Physician Neurology 02/21/23 documented as of this encounter
--- OUTSIDE RECORDS SUMMARY | 2024-10-01 07:17 | XMS_ITS | Encounter Summary ---
Author Organization [facility] Address [address] [place] [address] Phone Care Team Providers Care Industrial Sales Representative Name Role Phone Siri Henao APRN, RUMPER Unavailable + [phone] Gregorio Lemus MD Unavailable [phone] Loyda Jackson APRN, E COMMERCE RETAILER Primary Care Provider + José Sagastume MD Primary Care Provider [phone] Loyda Jackson APRN, [facility] Primary Care Provider + José Sagastume MD Primary Care Provider [phone] Loyda Jackson APRN, E COMMERCE RETAILER Primary Care Provider + Provider, None Primary Care Provider Unavailabl e Loyda Jackson APRN, [facility] Primary Care Provider + José Sagastume MD Primary Care Provider [phone] Provider, None Primary Care Provider Unavailabl e Reason for Visit * Reason Comments Medication Refill Encounter Details Date Type Department Care Team (Late st Contact Info) Description 04/24/2023 Refill [facility] - Family Medicine [facility] [address] [place] [address] Loyda Jackson APRN, E COMMERCE RETAILER [address] [place] [address] Medication Refill Social History Tobacco Use Types Packs/Day Years Used Date Smoking Tobacco: Never Smokeless Tobacco: Never Alcohol Use Standard Drinks/Week Comments Yes 12 (1 standard drink = 0.6 oz pure alcohol) abstinent since recent hospitalization, April 06, formerly drank daily [facility] Utilities Answer Date Recorded In the past 12 months has [employer], gas, oil, or water [employer] threatened to shut off services in your home? Patient declined 04/07/2023 Social Connection and Isolation Panel Answer Date Recorded In a typical week, how many times do you talk on the phone with family, friends, or neighbors? Patient declined 04/07/2023 How often do you get togethe r with friends or relatives? Patient declined 04/07/2023 How often do you attend baptism or episcopal serv ices? Patient declined 04/07/2023 Do you belong to any clubs o r organizations such as baptism groups, unions, fraternal or athletic groups, or [...] Total Score - Questions 1-9 0 04/06 [facility] - Occupational [...] place to sleep or slept in a residential (including now)? 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 file [...] Provider Dept 04/19/23 Office Visit Loyda Jackson APRN, E COMMERCE RETAILER [facility] 02/24/23 Office Visit Loyda Jackson APRN, [facility] 01/18/23 Office Visit Loyda Jackson APRN, E COMMERCE RETAILER [facility] 12/16/22 Office Visit Loyda Jackson APRN, [facility]I [facility] 11/28/22 Office Visit Loyda Jackson APRN, AR[facility] 11/21/22 Office Visit Loyda Jackson APRN, E COMMERCE RETAILER [facility] 09/20/22 Telemedicine Loyda Jackson APRN, E COMMERCE RETAILER [facility] 07/11/22 Office Visit Loyda Jackson APRN, E COMMERCE RETAILER [facility] 06/13/22 Office Visit Loyda Jackson APRN, E COMMERCE RETAILER [facility] Showing recent visits within past 365 days and meeting all other requirements Future Appointments Date Type Provider Dept 07/20/23 Appointment [facility] Show[facility] future appointments within next 90 [...] documented as of this encounter Care Teams Industrial Sales Representative Relationship Specialty Start Date End Date Loyda Jackson APRN, E COMMERCE RETAILER [address] [place] [address] PCP - General Advanced Practice Nurse 04/19/23 05/08/23 José Sagastume MD [address] [place] [address] PCP - General Family Medicine 05/09/23 05/21/23 Loyda Jackson, HAND GLASS CUTTER, E COMMERCE RETAILER [address] [place] [address] PCP - General Advanced Practice Nurse 05/22/23 05/25/23 José Sagastume MD [address] [place] [address] PCP - General Family Medicine 05/26/23 05/27/23 Loyda Jackson, HAND GLASS CUTTER, E COMMERCE RETAILER [address] [place] [address] PCP - General Advanced Practice Nurse 05/28/23 06/15/23 Provider, None [place] PCP - General 06/16/23 07/05/23 Loyda Jackson, HAND GLASS CUTTER, E COMMERCE RETAILER [address] [place] [address] PCP - General Advanced Practice Nurse 07/06/23 07/10/23 José Sagastume MD [address] [place] [address] PCP - General Family Medicine 07/11/23 10/11/23 Provider, None [place] PCP - General 10/29/23 Siri Henao, HAND GLASS CUTTER, RUMPER [address] [place] [address] Nurse Practitioner Advanced Practice Nurse 02/17/22 Gregorio Lemus MD [address] [place] [address] Consulting Physician Neurology 02/21/23 documented as of this encounter
--- OUTSIDE RECORDS SUMMARY | 2024-10-01 07:18 | XMS_ITS | Encounter Summary ---
Author Organization [facility] Address [address] [place] [address] Phone Care Team Providers Care Personal Lines Account Executive Name Role Phone José Sagastume MD Primary Care Provider [phone] Loyda Jackson APRN, [facility] Primary Care Provider + Siri Henao APRN, HOT TAMALE MAN Unavailable + [phone] Gregorio Lemus MD Unavailable +[phone] Loyda Jackson APRN, [facility] Primary Care Provider + José Sagastume MD Primary Care Provider [phone] Loyda Jackson APRN, [facility] Primary Care Provider + José Sagastume MD Primary Care Provider [phone] Loyda Jackson APRN, [facility] Primary Care Provider + Provider, None Primary Care Provider Unavailabl e Loyda Jackson APRN, [facility] Primary Care Provider + José Sagastume MD Primary Care Provider [phone] Provider, None Primary Care Provider Unavailabl e Reason for Visit * Reason Comments Medication Refill Encounter Details Date Type Department Care Team (Late st Contact Info) Description 10/19/2022 Refill [facility] - Family [facility] [address] [place] [address] José Sagastume MD [address] [place] [address] Medication Refill Social History Tobacco Use Types [...] 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 difficile Rule-Out 04/08/2023 04/08/20232023 2:20 PM INSIDE SALES RECRUITER C. difficile Rule-Out 04/19/2023 04/20/20232023 9:22 AM CDT COVID - 19 07/06/2023 07/06/2023 07/06/2023 4:44 PM CDT Assessment Noted Time PHQ-9 Depression Total Score: 0 04/23/19 4:00 PM CDT documented as of this encounter Care Teams Personal Lines Account Executive Relationship Specialty Start Date End Date José Sagastume MD PCP - General Family Medicine 03/02/20 03/12/23 Loyda Jackson APRN, AR[facility]I [address] [place] [address] PCP - General Advanced Practice Nurse 03/13/23 04/18/23 Loyda Jackson APRN, CNP [address] [place] [address] PCP - General Advanced Practice Nurse 04/19/23 05/08/23 José Sagastume MD PCP - General Family Medicine 05/09/23 05/21/23 Loyda Jackson, FACILITY SECURITY OFFICER, TIRE MOLD TESTER [address] [place] [address] PCP - General Advanced Practice Nurse 05/22/23 05/25/23 José Sagastume MD PCP - General Family Medicine 05/26/23 05/27/23 Loyda Jackson, FACILITY SECURITY OFFICER, TIRE MOLD TESTER [address] [place] [address] PCP - General Advanced Practice Nurse 05/28/23 06/15/23 Provider, None [place] PCP - General 06/16/23 07/05/23 Loyda Jackson, FACILITY SECURITY OFFICER, TIRE MOLD TESTER [address] [place] [address] PCP - General Advanced Practice Nurse 07/06/23 07/10/23 José Sagastume MD PCP - General Family Medicine 07/11/23 10/11/23 Provider, None [place] PCP - General 10/29/23 Siri Henao, FACILITY SECURITY OFFICER, HOT TAMALE MAN [address] [place] [address] Nurse Practitioner Advanced Practice Nurse 02/17/22 Gregorio Lemus MD [address] [place] [address] Consulting Physician Neurology 02/21/23 documented as of this encounter
--- OUTSIDE RECORDS SUMMARY | 2024-10-01 07:18 | XMS_ITS | Encounter Summary ---
Author Organization [employer] Address [address] [place] [address] Care Team Providers Care Car Salesperson Name Role Phone Kellen Weaver MD Primary Care Provider [phone] Encounter Details Date Type Department Care Team (Latest Contact Info) Description 10/16/2005 Outpatient Historical [facility] NE[facility]OLOGY Kellen Weaver MD [address] [place] [address] Unspecified Migraine without Mention of Intractable Migraine (Primary Dx) Social History Tobacco Use Types Packs/Day Years Used Date Smoking Tobacco: Never Assessed Comments Unknown Sex and Gender Information Value Date Recorded Sex Assigned at Not on file Legal Sex Female 4:12 AM CALIBRATION LABORATORY TECHNICIAN Gender Identity Not on file Sexual Orientation Not on file documented as of this encounter Plan of Treatment Not on file documented as of this encounter Visit Diagnoses Diagnosis Migraine, unspecified, without mention of intractable migraine without mention of status migrainosus- Primary documented in this encounter Care Teams Car Salesperson Relationship Specialty Start Date End Date Kellen Weaver MD [address] [place] [address] PCP - General 09/14/05 11/17/19 documented as of this encounter
--- OUTSIDE RECORDS SUMMARY | 2024-10-01 07:18 | XMS_ITS | Encounter Summary ---
Author Organization [email or web address] Address [address] [place] [address] Care Team Providers Care Garment Manufacturing Supervisor Name Role Phone Kellen Weaver MD Primary Care Provider [phone] Encounter Details Date Type Department Care Team (Late st Contact Info) Description 12/19/2005 Outpatient Historical [facility] OP NEUROLOGY Kellen Weaver MD [address] [place] [address] Social History Tobacco Use Types Packs/Day Years Used Date Smoking Tobacco: Never Assessed Comments Unknown Sex and Gender Information Value Date Recorded Sex Assigned at Not on file Legal Sex Female 4:12 AM EDUCATION ASSOCIATE Gender Identity Not on file Sexual Orientation Not on file documented as of this encounter Plan of Treatment Not on file documented as of this encounter Visit Diagnoses Not on filedocumented in this encounter Care Teams Garment Manufacturing Supervisor Relationship Specialty Start Date End Date Kellen Weaver MD [address] [place] [address] PCP - General 09/14/05 11/17/19 documented as of this encounter
--- OUTSIDE RECORDS SUMMARY | 2024-10-01 07:18 | XMS_ITS | Encounter Summary ---
Author Organization [employer] Address [address] [place] [address] Care Team Providers Care Asp Developer Name Role Phone Kellen Weaver MD Primary Care Provider [phone] Encounter Details Date Type Department Care Team (Late st Contact Info) Description 04/18/2006 Outpatient Historical Division of Neurology [address] [address] Kellen Weaver MD [address] [place] [address] Social History Tobacco Use Types Packs/Day Years Used Date Smoking Tobacco: Never Assessed Comments Unknown Sex and Gender Information Value Date Recorded Sex Assigned at Not on file Legal Sex Female 4:12 AM CIRCUIT BREAKER MECHANIC Gender Identity Not on file Sexual Orientation Not on file documented as of this encounter Plan of Treatment Not on file documented as of this encounter Visit Diagnoses Not on filedocumented in this encounter Care Teams Asp Developer Relationship Specialty Start Date End Date Kellen Weaver MD [address] [place] [address] PCP - General 09/14/05 11/17/19 documented as of this encounter
--- OUTSIDE RECORDS SUMMARY | 2024-10-01 07:18 | XMS_ITS | Encounter Summary ---
Author Organization [employer] Address [address] [place] [address] Care Team Providers Care Inoculator Name Role Phone Kellen Weaver MD Primary Care Provider [phone] Encounter Details Date Type Department Care Team (Late st Contact Info) Description 09/09/2005 Outpatient Historical Division of Neurology [address] [address] Kellen Weaver MD [address] [place] [address] Social History Tobacco Use Types Packs/Day Years Used Date Smoking Tobacco: Never Assessed Comments Unknown Sex and Gender Information Value Date Recorded Sex Assigned at Not on file Legal Sex Female 4:12 AM CHIEF PILOT Gender Identity Not on file Sexual Orientation Not on file documented as of this encounter Plan of Treatment Not on file documented as of this encounter Visit Diagnoses Not on filedocumented in this encounter Care Teams Inoculator Relationship Specialty Start Date End Date Kellen Weaver MD [address] [place] [address] PCP - General 09/14/05 11/17/19 documented as of this encounter
--- OUTSIDE RECORDS SUMMARY | 2024-10-01 07:18 | XMS_ITS | Encounter Summary ---
Author Organization [employer] Address [address] [place] [address] Care Team Providers Care Seeing Eye Dog Teacher Name Role Phone Kellen Weaver MD Primary Care Provider [phone] Encounter Details Date Type Department Care Team (Latest Contact Info) Description 09/14/2005 Outpatient Historical [facility] OP NEUROLOGY Kellen Weaver MD [address] [place] [address] Unspecified Migraine without Mention of Intractable Migraine (Primary Dx) Social History Tobacco Use Types Packs/Day Years Used Date Smoking Tobacco: Never Assessed Comments Unknown Sex and Gender Information Value Date Recorded Sex Assigned at Not on file Legal Sex Female 4:12 AM DIAL REFINISHER Gender Identity Not on file Sexual Orientation Not on file documented as of this encounter Plan of Treatment Not on file documented as of this encounter Visit Diagnoses Diagnosis Migraine, unspecified, without mention of intractable migraine without mention of status migrainosus- Primary documented in this encounter Care Teams Seeing Eye Dog Teacher Relationship Specialty Start Date End Date Kellen Weaver MD [address] [place] [address] PCP - General 09/14/05 11/17/19 documented as of this encounter
--- OUTSIDE RECORDS SUMMARY | 2024-10-01 07:18 | XMS_ITS | Clinical Summary ---
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
--- OUTSIDE RECORDS SUMMARY | 2024-10-01 07:18 | XMS_ITS | Clinical Summary ---
Author Organization [facility] Medical Office Building B Address [address] [place] [address] Care Team Providers Care Records Manager Name Role Phone Loyda Jackson Primary Care Provider [phone] Allergies Active Allergy Reactions Criticality Noted Date [...] anxiety 30 capsule 1 3 Active multivit lhgkfuml-odmx-E A-calcium (THERA-M) 9 mg iron-400 mcg tabletIndicatio [...] (09/08/2021): Added automatically from request for surgery [id number] Fatigue 02/28/2020 Liver dysfunction 02/28/2020 Weight gain 02/28/2020 Insect bite of right thigh 08/07/2019 Encounter for medication refill 08/07/2019 Lipoma of left upper extremity 10/11/2017 Skin lesion 11/19/2015 Inflamed seborrheic keratosis 11/19/2015 Chest pain, unspecified 12/17/2013 Gastroesophageal reflux disease 12/17/2013 Hypercholesterolemia 12/17/2013 Primary hypertension 12/17/2013 Encounters Date Type Department Care Team Description 09/04/2024 [facility] Initial Eligibility [facility] Warm Hand Off Program [address], [place] [phone] Cherelle Dickens 09/03/2024 Documentation [facility] Warm Hand Off [facility] [address], [place] [phone] Cherelle Dickens 09/03/2024 Documentation [facility] Warm Hand Off [facility] [address] [place], [place] [phone] Cherelle Dickens from Last 3 Months Immunizations Immunization Administration Dates Next Due Hep A / [...] uction Hx Other Medical Tubal Anxiety Alcoholism (HCC) Addiction to drug (HCC) Hypercholesteremia Migraines Thyroid disease Urinary tract [...] 3 days Social Connection and Isolation Panel Answer Date Recorded In a typical week, how many times do you talk on the phone with family, friends, or neighbors? Twice a week 06/10/19 How often do you get togethe r with friends or relatives? Twice a week 06/09/2022 How often do you attend chur or baptist services? 1 to 4 times per year [...] place to sleep or slept in a fdc (including now)? No 06/09/2022 Personal Safety Answer Date Recorded Have you ever been in or are you currently in a harmful physical or emotional relationship or is someone making you feel afraid or unsafe? 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 Gender Identity Not on file Sexual Orientation Not on file Obstetrics History Last Filed Vital Signs Vital Sign Reading Time Taken Comments Blood Pressure 120/102 06/24/2023 11:18 AM CDT Pulse 117 06/24/2023 11:18 AM CDT Temperature 36.3 C (97.3 F) 06/24/2023 11:18 AM CDT Respiratory Rate 20 06/24/2023 11:18 AM CDT Oxygen Saturation 96% 06/24/2023 11:18 AM CDT Inhaled Oxygen Concentration - - Weight 67.1 kg (148 lb) 06/24/2023 9:07 AM CDT Height 157.5 cm (5' 2) 06/24/2023 9:07 AM CDT Body Mass Index 27.07 06/24/2023 9:07 AM CDT Plan of Treatment Health Maintenance Due Date Last Done Comments Breast Cancer Screening-Mammogram 1960 Cervical Cancer Screening 1960 Colon Cancer Screening-Colonoscopy 1960 Depression Screening 1960 Hepatitis C Screening 1960 Regular Well Visit/Exam 18-64 1978 Zoster Vaccine (2 of 2) 05/29/2021 04/03/2021 Covid-19 Vaccine (3 - 2023- season) 2023 06/22/2020, 05/25/2020 Influenza Vaccine (#1) 2024 , 02/01/2022, 11/14/2020, Additional history exists DTaP/Tdap/Td Vaccine (3 - Td or Tdap) 03/13/2033 03/13/2023, 12/04/2022 Hepatitis B Screening Completed 08/11/2009, 010 Pneumococcal vaccine <65 Aged Out No longer eligible based on patient's age to complete this topic Insurance AETNA [facility] Advance Directives For more information, please contact: [phone] * Full Code (Latest Code Status on File) Date Activated Date Inactivated Comments 06/08/2022 7:40 PM 06/11/2022 3:29 PM * Full Code Date Activated Date Inactivated Comments 06/08/2022 4:39 PM 06/08/2022 7:40 PM Care Teams Records Manager Relationship Specialty Start Date End Date Loyda Jackson PCP - General Tapper Helper 03/04/23
--- OUTSIDE RECORDS SUMMARY | 2024-10-01 07:18 | XMS_ITS | Encounter Summary ---
Author Organization [employer] Address [address] [place] [address] Care Team Providers Care Receiving Room Clerk Name Role Phone Kellen Weaver MD Primary Care Provider [phone] Encounter Details Date Type Department Care Team (Late st Contact Info) Description 06/09/2006 Outpatient Historical Division of Neurology 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
--- OUTSIDE RECORDS SUMMARY | 2024-10-01 07:18 | XMS_ITS | Encounter Summary ---
Author Organization [employer] Address [address] [place] [address] Care Team Providers Care Fixed Route Bus Operator Name Role Phone Kellen Weaver MD Primary Care Provider [phone] Encounter Details Date Type Department Care Team (Latest Contact Info) Description 11/17/2005 Outpatient Historical HIS OP NEUROLOGY Kellen Weaver MD [address] [place] [address] Unspecified Migraine without Mention of Intractable Migraine (Primary Dx) Social History Tobacco Use Types Packs/Day Years Used Date Smoking Tobacco: Never Assessed Comments Unknown Sex and Gender Information Value Date Recorded Sex Assigned at Not on file 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
--- OUTSIDE RECORDS SUMMARY | 2024-10-01 07:19 | XMS_ITS | Encounter Summary ---
Author Organization [facility] Address [address] [place] [address] Phone Care Team Providers Care Loss Prevention Manager Name Role Phone Siri Henao APRN, PLATFORM OPERATIONS DIRECTOR Unavailable [phone]- [phone] Gregorio Lemus MD Unavailable [phone] Loyda Jackson APRN, FURNITURE DESIGNER Primary Care Provider + Provider, None Primary Care Provider Unavailabl e Loyda Jackson APRN, FURNITURE DESIGNER Primary Care Provider + José Sagastume MD Primary Care Provider [phone] Provider, None Primary Care Provider Unavailabl e Encounter Details Date Type Department Care Team (Late st Contact Info) Description 05/29/2023 Telephone [facility] [address] [place] [address] [place] [address] Loyda Jackson, DIRECTOR SPEECH AND HEARING, FURNITURE DESIGNER [address] [place] [address] Social History Tobacco Use Types Packs/Day Years Used Date Smoking Tobacco: Never Smokeless Tobacco: Never Alcohol Use Standard Drinks/Week Comments Yes 12 (1 standard drink = 0.6 oz pure alcohol) abstinent since recent hospitalization, April 06, formerly drank daily [facility] Utilities Answer Date Recorded In the past 12 months has [facility], gas, oil, or water [employer] threatened to shut off services in your home? Patient declined 04/07/2023 Social Connection and Isolation Panel Answer Date Recorded In a typical week, how many times do you talk on the phone with family, friends, or neighbors? Patient declined 04/07/2023 How often do you get togethe r with friends or relatives? Patient declined 04/07/2023 How often do you attend jainism or pentecostal serv ices? Patient declined 04/07/2023 Do you belong to any clubs o r organizations such as jainism groups, unions, fraternal or athletic groups, or [...] Total Score - Questions 1-9 0 04/06 [facility] - Occupational Stress Questionnaire Answer Date Recorded [...] place to sleep or slept in a jail (including now)? 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 Author Behavioral Health Behavioral Health On track( 024 2:09 PM CDT) Yes Wilbert Corley, LEASE PURCHASE DRIVER Note: I need to be able to maintain sobriety plus reduce my anxiety Goal/Objective: Reduce anxiety. Anticipated Time Frame for Goal Completion: 6 months Goal Reviewed with: patient Readiness to change: Thinking about making a change Department associated with goal: [facility] Steps to achieve [...] making a change Department associated with goal: [facility] Steps to achieve [...] 6 sessions 5. Will continue to attend [facility] individual and family therapy 6. Will continue [...] documented as of this encounter Care Teams Loss Prevention Manager Relationship Specialty Start Date End Date Loyda Jackson APRN, FURNITURE DESIGNER [address] [place] [address] PCP - General Advanced Practice Nurse 05/28/23 06/15/23 Provider, None [place] PCP - General 06/16/23 07/05/23 Loyda Jackson APRN, FURNITURE DESIGNER [address] [place] [address] PCP - General Advanced Practice Nurse 07/06/23 07/10/23 José Sagastume MD [place] PCP - General Family Medicine 07/11/23 10/11/23 Provider, None [place] PCP - General 10/29/23 Siri Henao, DIRECTOR SPEECH AND HEARING, PLATFORM OPERATIONS DIRECTOR [address] [place] [address] Nurse Practitioner Advanced Practice Nurse 02/17/22 Gregorio Lemus MD [address] [place] [address] Consulting Physician Neurology 02/21/23 documented as of this encounter
--- OUTSIDE RECORDS SUMMARY | 2024-10-01 07:19 | XMS_ITS | Encounter Summary ---
Author Organization [facility] Address [address] [place] [address] Phone Care Team Providers Care Licensed Bondsman Name Role Phone José Sagastume MD Primary Care Provider [phone] Loyda Jackson APRN, [facility] Primary Care Provider + Siri Henao APRN, HUMAN SERVICES PROFESSIONAL Unavailable + [phone] Gregorio Lemus MD Unavailable [phone] Loyda Jackson APRN, [facility] Primary Care Provider + José Sagastume MD Primary Care Provider [phone] Loyda Jackson APRN, [facility] Primary Care Provider + José Sagastume MD Primary Care Provider [phone] Loyda Jackson APRN, [facility] Primary Care Provider + Provider, None Primary Care Provider Unavailabl e Loyda Jackson APRN, [facility] Primary Care Provider + José Sagastume MD Primary Care Provider [phone] Provider, None Primary Care Provider Unavailabl e Reason for Visit * Reason Comments Medication Refill Encounter Details Date Type Department Care Team (Late st Contact Info) Description 08/09/2022 Refill [facility] - Family [facility] [address] [place] [address] Loyda Jackson, ANTONI, ASSOCIATE SCHOOL PSYCHOLOGIST [address] [place] [address] Medication Refill Social History Tobacco Use Types [...] 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 Not on file Not [...] 07/11/22 Office Visit Loyda Jackson APRN, [facility] 06/13/22 Office Visit Loyda Jackson APRN, [facility] 04/22/22 Office Visit Loyda Jackson APRN, [facility] 04/06/22 Office Visit Loyda Jackson APRN, CNP [facility] 03/11/22 Office Visit José Sagastume MD [facility] 02/01/22 Office Visit Gunnar Velez MD [facility] 08/26/21 Office Visit José Sagastume MD [facility] Showing recent visits within past 365 days and meeting all other requirements Future Appointments Date Type Provider Dept 09/13/22 Appointment José Sagastume MD [facility] Showing future appointments within next 90 days and meeting all other requirements documented in this encounter Plan of Treatment Not on file documented as of this encounter Visit Diagnoses Diagnosis ETOH abuse Alcohol abuse, unspecified documented in this encounter Additional Health Concerns Infection Onset Date Last Indicated Resolved Time COVID - 19 04/06/2023 04/06/2023 04/16/2023 12:1 6 AM IT ARCHITECTURE ANALYST C. difficile Rule-Out 04/08/2023 04/08/20232023 2:20 PM IT ARCHITECTURE ANALYST C. difficile Rule-Out 04/19/2023 04/20/20232023 9:22 AM CDT COVID - 07/06/2023 07/06/2023 07/06/2023 4:44 PM CDT Assessment Noted Time PHQ-9 Depression Total Score: 0 04/23/19 22 4:00 PM CDT documented as of this encounter Care Teams Licensed Bondsman Relationship Specialty Start Date End Date José Sagastume MD PCP - General Family Medicine 03/02/20 03/12/23 Loyda Jackson APRN, CNP [address] [place] [address] PCP - General Advanced Practice Nurse 03/13/23 04/18/23 Loyda Jackson APRN, CNP [address] [place] [address] PCP - General Advanced Practice Nurse 04/19/23 05/08/23 José Sagastume MD PCP - General Family Medicine 05/09/23 05/21/23 Loyda Jackson, AGRICULTURAL TECHNICAL OFFICER, ASSOCIATE SCHOOL PSYCHOLOGIST [address] [place] [address] PCP - General Advanced Practice Nurse 05/22/23 05/25/23 José Sagastume MD PCP - General Family Medicine 05/26/23 05/27/23 Loyda Jackson, AGRICULTURAL TECHNICAL OFFICER, ASSOCIATE SCHOOL PSYCHOLOGIST [address] [place] [address] PCP - General Advanced Practice Nurse 05/28/23 06/15/23 Provider, None [place] PCP - General 06/16/23 07/05/23 Loyda Jackson, AGRICULTURAL TECHNICAL OFFICER, ASSOCIATE SCHOOL PSYCHOLOGIST [address] [place] [address] PCP - General Advanced Practice Nurse 07/06/23 07/10/23 José Sagastume MD PCP - General Family Medicine 07/11/23 10/11/23 Provider, None [place] PCP - General 10/29/23 Siri Henao, AGRICULTURAL TECHNICAL OFFICER, HUMAN SERVICES PROFESSIONAL [address] [place] [address] Nurse Practitioner Advanced Practice Nurse 02/17/22 Gregorio Lemus MD [address] [place] [address] Consulting Physician Neurology 02/21/23 documented as of this encounter
--- OUTSIDE RECORDS SUMMARY | 2024-10-01 07:19 | XMS_ITS | Encounter Summary ---
Author Organization [facility] Address [address] [place] [address] Phone Care Team Providers Care Rn Document Improvement Name Role Phone José Sagastume MD Primary Care Provider [phone] Loyda Jackson APRN, [facility] Primary Care Provider + Siri Henao APRN, FLAKE MILLER HELPER Unavailable + [phone] Gregorio Lemus MD Unavailable [phone] Loyda Jackson APRN, [facility] Primary Care Provider + José Sagastume MD Primary Care Provider [phone] Loyda Jackson APRN, [facility] Primary Care Provider + José Sagastume MD Primary Care Provider [phone] Loyda Jackson APRN, [facility] Primary Care Provider + Provider, None Primary Care Provider Unavailabl e Loyda Jackson APRN, [facility] Primary Care Provider + José Sagastume MD Primary Care Provider [phone] Provider, None Primary Care Provider Unavailabl e Reason for Visit * Reason Comments Medication Refill Encounter Details Date Type Department Care Team (Late st Contact Info) Description 12/21/2020 Refill [facility] - [facility] [address] [place] [address] Jsoé Sagastume MD [address] [place] [address] Medication Refill Social History Tobacco Use Types [...] 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 Requested Prescriptions Pending Prescriptions Disp Refills ergocalciferol (VITAMIN D) [id number] UNIT Capsule [Pharmacy Med Name: VITAMIN D2 [...] [place] 02/28/20 Office Visit [facility]astume MD [facility] Showing recent visits within past 365 [...] Visits 9 months ago Shortness of breath [facility] - José Melvin MD 9 months ago Visit for annual health examination (Adult) [facility] - José Melvin MD Upcoming Appointments CLERICAL COORDINATOR - Recent and Past Visits Recent Visits Date Type Provider Dept 03/27/20 Office Visit José Sagastume MD [facility] [place] 02/28/20 Office Visit José Sagastume MD [facility] Showing recent visits within past 460 days with a meds authorizing provider and meeting all other requirements Future Appointments No visits were found meeting these conditions. Showing future appointments within next 90 days with a meds authorizing provider and meeting all other requirements ARCH PROGRAM INTERN documented in this encounter Plan of Treatment Not on file documented as of this encounter Visit Diagnoses Not on filedocumented in this encounter Additional Health Concerns Infection Onset Date Last Indicated Resolved Time COVID - 19 01/22/2022 01/22/2022 01/25/2022 8:35 AM RESEARCH PROGRAM INTERN COVID - 19 Confirmed 02/21/2022 02/21/2022 023 12:16 AM RESEARCH PROGRAM INTERN COVID - 19 04/06/2023 04/06/2023 04/16/2023 12:1 6 AM RESEARCH PROGRAM INTERN C. difficile Rule-Out 04/08/2023 04/08/20232023 2:20 PM RESEARCH PROGRAM INTERN C. difficile Rule-Out 04/19/2023 04/20/20232023 9:22 AM CDT COVID - 19 07/06/2023 07/06/2023 07/06/2023 4:44 PM CDT Assessment Noted Time PHQ-9 Depression Total Score: 0 03/27/19 21 3:00 PM RESEARCH PROGRAM INTERN documented as of this encounter Care Teams Rn Document Improvement Relationship Specialty Start Date End Date José Sagastume MD PCP - General Family Medicine 03/02/20 03/12/23 Loyda Jackson, RN ICU, EVENT EXECUTIVE [address] [place] [address] PCP - General Advanced Practice Nurse 03/13/23 04/18/23 Loyda Jackson, RN ICU, EVENT EXECUTIVE [address] [place] [address] PCP - General Advanced Practice Nurse 04/19/23 05/08/23 José Sagastume MD PCP - General Family Medicine 05/09/23 05/21/23 Loyda Jackson, RN ICU, EVENT EXECUTIVE [address] [place] [address] PCP - General Advanced Practice Nurse 05/22/23 05/25/23 José Sagastume MD PCP - General Family Medicine 05/26/23 05/27/23 Loyda Jackson, RN ICU, EVENT EXECUTIVE [address] [place] [address] PCP - General Advanced Practice Nurse 05/28/23 06/15/23 Provider, None [place] PCP - General 06/16/23 07/05/23 Loyda Jackson, RN ICU, EVENT EXECUTIVE [address] [place] [address] PCP - General Advanced Practice Nurse 07/06/23 07/10/23 José Sagastume MD PCP - General Family Medicine 07/11/23 10/11/23 Provider, None [place] PCP - General 10/29/23 Siri Henao APRN, FLAKE MILLER HELPER [address] [place] [address] Nurse Practitioner Advanced Practice Nurse 02/17/22 Gregorio Lemus MD [address] [place] [address] Consulting Physician Neurology 02/21/23 documented as of this encounter
--- OUTSIDE RECORDS SUMMARY | 2024-10-01 07:19 | XMS_ITS | Encounter Summary ---
Author Organization [facility] Address [address] [place] [address] Phone Care Team Providers Care Marine Railway Operator Name Role Phone José Sagastume MD Primary Care Provider [phone] Loyda Jackson APRN, [facility] Primary Care Provider + Siri Henao APRN, [employer] Unavailable + [phone] Gregorio Lemus MD Unavailable [phone] Loyda Jackson APRN, [facility] Primary Care Provider + José Sagastume MD Primary Care Provider [phone] Loyda Jackson APRN, [facility] Primary Care Provider + José Sagastume MD Primary Care Provider [phone] Loyda Jackson APRN, [facility] Primary Care Provider + Provider, None Primary Care Provider Unavailabl e Loyda Jackson APRN, [facility] Primary Care Provider + José Sagastume MD Primary Care Provider [phone] Provider, None Primary Care Provider Unavailabl e Reason for Visit * Reason Comments Medication Refill Encounter Details Date Type Department Care Team (Late st Contact Info) Description 09/16/2022 Refill [facility] [address] [place] [address] José Sagastume MD [address] [place] [address] Medication Refill Social History Tobacco Use Types [...] 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 difficile Rule-Out 04/08/2023 04/08/20232023 2:20 PM AGRICULTURE WORKER C. difficile Rule-Out 04/19/2023 04/20/20232023 9:22 AM CDT COVID - 19 07/06/2023 07/06/2023 07/06/2023 4:44 PM CDT Assessment Noted Time PHQ-9 Depression Total Score: 0 04/23/19 4:00 PM CDT documented as of this encounter Care Teams Marine Railway Operator Relationship Specialty Start Date End Date José Sagastume MD PCP - General Family Medicine 03/02/20 03/12/23 Loyda Jackson APRN, DONOR SERVICES TEAM LEADER [address] [place] [address] PCP - General Advanced Practice Nurse 03/13/23 04/18/23 Loyda Jackson APRN, DONOR SERVICES TEAM LEADER [address] [place] [address] PCP - General Advanced Practice Nurse 04/19/23 05/08/23 José Sagastume MD PCP - General Family Medicine 05/09/23 05/21/23 Loyda Jackson APRN, DONOR SERVICES TEAM LEADER [address] [place] [address] PCP - General Advanced Practice Nurse 05/22/23 05/25/23 José Sagastume MD PCP - General Family Medicine 05/26/23 05/27/23 Loyda Jackson, CAUSTIC STRENGTH INSPECTOR, DONOR SERVICES TEAM LEADER [address] [place] [address] PCP - General Advanced Practice Nurse 05/28/23 06/15/23 Provider, None [place] PCP - General 06/16/23 07/05/23 Loyda Jackson, CAUSTIC STRENGTH INSPECTOR, DONOR SERVICES TEAM LEADER [address] [place] [address] PCP - General Advanced Practice Nurse 07/06/23 07/10/23 José Sagastume MD PCP - General Family Medicine 07/11/23 10/11/23 Provider, None [place] PCP - General 10/29/23 Siri Henao, CAUSTIC STRENGTH INSPECTOR, BARGE P[employer] [address] [place] [address] Nurse Practitioner Advanced Practice Nurse 02/17/22 Gregorio Lemus MD [address] [place] [address] Consulting Physician Neurology 02/21/23 documented as of this encounter
--- OUTSIDE RECORDS SUMMARY | 2024-10-01 07:19 | XMS_ITS | Encounter Summary ---
Author Organization [facility] Address [address] [place] [address] Phone Care Team Providers Care Machine Cloth Trimmer Name Role Phone José Sagastume MD Primary Care Provider [phone] Loyda Jakcson APRN, [facility] Primary Care Provider + Siri Henao APRN, OVER THE ROAD DRIVER Unavailable + [phone] Gregorio Lemus MD Unavailable [phone] Loyda Jackson APRN, [facility] Primary Care Provider + José Sagastume MD Primary Care Provider [phone] Loyda Jackson APRN, [facility] Primary Care Provider + José Sagastume MD Primary Care Provider [phone] Loyda Jackson APRN, [facility] Primary Care Provider + Provider, None Primary Care Provider Unavailabl e Loyda Jackson APRN, [facility] Primary Care Provider + José Sagastume MD Primary Care Provider [phone] Provider, None Primary Care Provider Unavailabl e Reason for Visit * Reason Comments Medication Refill Encounter Details Date Type Department Care Team (Late st Contact Info) Description 09/21/2020 Refill [facility] - Family [facility] [address] [place] [address] José Sagastume MD [address] [place] [address] Medication Refill Social History Tobacco Use Types [...] 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 Passed - Valid encounter within last 12 months Past Office Visits Recent Outpatient Visits 5 months ago Shortness of breath [facility] - Family Medicine - José Melvin MD 6 months ago Visit for annual health examination (Adult) [facility] - Family Medicine - José Melvin MD Upcoming Appointments Future Appointments In 1 month Gregorio Lemus MD [facility] - Neurology [facility] CELL POURER - Recent and Past Visits Recent Visits Date Type Provider Dept 03/27/20 Office Visit José Sagastume MD [facility] 02/28/20 Office Visit José Sagastume MD [facility] Showing recent visits within past 460 days [...] - 19 01/22/2022 01/22/2022 01/25/2022 8:35 AM SPONSORSHIP COORDINATOR COVID - 19 Confirmed 02/21/2022 02/21/2022 023 12:16 AM SPONSORSHIP COORDINATOR COVID - 19 04/06/2023 04/06/2023 04/16/2023 12:1 6 AM SPONSORSHIP COORDINATOR C. difficile Rule-Out 04/08/2023 04/08/20232023 2:20 PM SPONSORSHIP COORDINATOR C. difficile Rule-Out 04/19/2023 04/20/20232023 9:22 AM CDT COVID - 19 07/06/2023 07/06/2023 07/06/2023 4:44 PM CDT Assessment Noted Time PHQ-9 Depression Total Score: 0 03/27/19 3:00 PM SPONSORSHIP COORDINATOR documented as of this encounter Care Teams Machine Cloth Trimmer Relationship Specialty Start Date End Date José Sagastume MD PCP - General Family Medicine 03/02/20 03/12/23 Loyda Jackson APRN, EDGE MOLDER [address] [place] [address] PCP - General Advanced Practice Nurse 03/13/23 04/18/23 Loyda Jackson, MEDICAID ELIGIBILITY SPECIALIST, EDGE MOLDER [address] [place] [address] PCP - General Advanced Practice Nurse 04/19/23 05/08/23 José Sagastume MD PCP - General Family Medicine 05/09/23 05/21/23 Loyda Jackson, MEDICAID ELIGIBILITY SPECIALIST, EDGE MOLDER [address] [place] [address] PCP - General Advanced Practice Nurse 05/22/23 05/25/23 José Sagastume MD PCP - General Family Medicine 05/26/23 05/27/23 Loyda Jackson APRN, EDGE MOLDER [address] [place] [address] PCP - General Advanced Practice Nurse 05/28/23 06/15/23 Provider, None [place] PCP - General 06/16/23 07/05/23 Loyda Jackson, MEDICAID ELIGIBILITY SPECIALIST, EDGE MOLDER [address] [place] [address] PCP - General Advanced Practice Nurse 07/06/23 07/10/23 José Sagastume MD PCP - General Family Medicine 07/11/23 10/11/23 Provider, None [place] PCP - General 10/29/23 Siri Henao, MEDICAID ELIGIBILITY SPECIALIST, OVER THE ROAD DRIVER [address] [place] [address] Nurse Practitioner Advanced Practice Nurse 02/17/22 Gregorio Lemus MD [address] [place] [id number] Consulting Physician Neurology 02/21/23 documented as of this encounter
--- OUTSIDE RECORDS SUMMARY | 2024-10-01 07:19 | XMS_ITS | Clinical Summary ---
Author Organization [facility] Address [address] [place] [address] Phone Care Team Providers Care Packer Insulation Name Role Phone Siri Henao APRN, LEGGER PRESS OPERATOR Unavailable [phone] Gregorio Lemus MD Unavailable [phone] Provider, None Primary Care Provider Unavailabl e [...] Tablet by mouth nightly. 90 Tablet 3 03/04/2024 Active Active Problems Problem Noted Date Diagnosed [...] Encounters Date Type Department Care Team Description 07/12/2024 Telephone [facility] - Neurology [facility] [address] [place] [address] Gregorio Lemus MD from Last 3 Months Immunizations Immunization Administration Dates Next Due Covid-19, Mrna, Lnp-s, PF, 1 00 mcg/0.5 mL Dose (Moderna) 06/22/2020,05/25/2020 Hepatitis A And Hepatitis B Vaccine 08/11/2009 Influenza Vaccine, Quadrivalent, PF 12/07,02/01/2022,11/14/2020,02/27,10/16/2015,12/19/2014 Influenza, Injectable, Quadrivalent 10/13/2016 Pneumococcal conjugate PCV20 , polysaccharide [id number] conjugate, adjuvant, PF 12/11/2022() TDAP Vaccine 03/13/2023,12/04/2022 [...] oz pur e alcohol) 1/5 whiskey daily [place] Utilities Answer Date Recorded In the past 12 months has [employer] gas, oil, or water [employer] threatened to shut off services in your home? Patient declined 04/07/2023 Social Connection and Isolation Panel Answer Date Recorded In a typical week, how many times do you talk on the phone with family, friends, or neighbors? Patient declined 04/07/2023 How often do you get togethe r with friends or relatives? Patient declined 04/07/2023 How often do you attend scientology or zoroastrian serv ices? Patient declined 04/07/2023 Do you belong to any clubs o r organizations such as scientology groups, unions, fraternal or athletic groups, or [...] Total Score - Questions 1-9 0 04/06 [facility] - Occupational Stress Questionnaire Answer Date [...] place to sleep or slept in a senior care (including now)? 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 Not on file Not on file Last Filed Vital Signs Vital Sign Reading Time Taken Comments Blood Pressure 120/82 03/04/2024 8:54 AM WELDING MACHINE OPERATOR [employer] Pulse 96 03/04/2024 8:54 AM WELDING MACHINE OPERATOR [employer] Temperature 36.3 C (97.4 F) 03/04/2024 8:54 AM WELDING MACHINE OPERATOR [employer] AR[employer] Respiratory Rate 17 03/04/2024 8:54 AM WELDING MACHINE OPERATOR GAS MET[employer] ARC Oxygen Saturation 95% 03/04/2024 8:54 AM WELDING MACHINE OPERATOR GAS METAL ARC Inhaled Oxygen Concentration - - Weight 63.6 kg (140 lb 3.2 oz) 03/04/2024 8:54 A M WELDING MACHINE OPERATOR [employer] AR[employer] Height 157.5 cm (5' 2) 03/04/2024 8:54 AM WELDING MACHINE OPERATOR [employer] ARC Body Mass Index 25.64 03/04/2024 8:54 AM WELDING MACHINE OPERATOR GAS [employer] ARC Plan of Treatment Health Maintenance Due Date Last Done Comments Mammogram 1960 Pneumococcal Immunization (50+ years) (1 of 2 - PCV) 09/18/1979 Pap Smear 1981 Cervical Cancer Screening (CCS) 1990 HPV/Cotest 1990 Cologuard 2005 Colonoscopy 2005 Hepatitis B Immunization (2 of 3 - Hep B Twinrix 3-dose series) 09/08/2009 08/11/2009 Colorectal Cancer Screening 03/13/2018 Immunochemical Fecal Occult Blood 03/13/2018 03/13/2017 Zoster Immunization (2 of 2) 05/29/2021 04/03/2021 SARS-COV-2 Immunization (3 - season) 2023 06/22/2020, 05/25/2020 Influenza Immunization (#1) 10/07/202412/07, 02/01/2022, 11/14/2020, Additional history exists Td Immunization Every 10 Years (Adults With 1 Tdap) 03/13/2033 03/13/2023, 12/04/2022 Respiratory Syncytial Virus (RSV) Immunization (Adult) (1 - 1-dose 75+ series) 09/18/2035 Hepatitis C Virus (HCV) Screening Completed 04/28/2022 DTaP/Tdap/Td Immunization Discontinued 03/13/2023, Human Papillomavirus (HPV) Immunization Aged Out No longer eligible based on patient's age to complete this topic Meningococcal Immunization (ACWY) Aged Out No longer eligible based on patient's age to complete this topic Rotavirus Immunization Aged Out No lo nger eligible based on patient's age to complete this topic Goals Goal Patient Goal Type Associated Problems Recent Progress Patient-Stated? Author Behavioral Health Behavioral Health On track( 024 2:09 PM CDT) Yes Wilbert Corley, RAIL LAYER Note: I need to be able to maintain sobriety plus reduce my anxiety Goal/Objective: Reduce anxiety. Anticipated Time Frame for Goal Completion: 6 months Goal Reviewed with: patient Readiness to change: Thinking about making a change Department associated with goal: [facility] Steps to achieve goal: [...] making a change Department associated with goal: [facility] Steps to achieve goal: [...] 6 sessions 5. Will continue to attend [facility] individual [facility] family therapy 6. Will continue with [facility] once weekly AA meetings, needs to obtain a sponsor Procedures Procedure Name Priority Date/Time Associated Diagnosis Comments HEPATITIS PANEL ACUTE (AHP) Routine 04/28/2022 6:14 PM CDT Elevated LFTs STOOL, OCCULT BLOOD, DIAGNOSTIC, VIA GUAIAC STAT 03/13/2017 3:00 PM WELDING MACHINE OPERATOR GAS METAL ARC from Last 3 Months or Most Recently Relevant to Health Maintenance Results * HEPATITIS PANEL ACUTE (AHP) (04/28/2022 6:14 PM CDT) HEPATITIS A IGM ANTIBODY NON DETECTED NON DETECTED [facility] ARCH [id number] B 04/29/2022 7:07 PM CDT [facility] Comment: IGM Antibodies to HAV not detected. Does not exclude early acute or recovered HAV infection. HEP B CORE AB (IGM) NON DETECTED NON DETECTED [facility] ARCH [id number] B 04/29/2022 7:07 PM CDT [facility] Comment:IGM anti-HBC not det ected. Does not exclude the possibility of exposure to or infection with HBV. HEPATITIS B SURFACE ANTIGEN NON DETECTED NON DETECTED [facility] ARCH [id number] B 04/29/2022 7:07 PM CDT [facility] Comment:A nonreactive test r esult does not exclude the possibility of exposure to or infection with Hepatitis B virus. A nonreactive test result in individuals with prior exposure to hepatitis B may be due to antigen levels below the detection limit of this assay or lack of antigen reactivity to the antibodies in this assay. hepatitis C antibody 0.06 <1 S/CO [facility] ARCH [id number] B 04/29/2022 7:07 PM CDT [facility] Comment: Signal/Cutoff ratio < 0.79 is Nondetected Signal/Cutoff ratio 0.80-0.99 is Grayzone Signal/Cutoff ratio > 0.99 is Detected Supplemental assays are recommended if signal/cutoff ratio is >/=1.00. Signal/cutoff ratio result >/= 5.00 is 97% predictive of positivity for recombinant immunoblot assay (RIBA) and will be reported to the [place] Department of Public Health as required. Blood Venipuncture / Unknown 04/28/2022 6:14 PM CDT 04/28/2022 6:18 PM CDT us Loyda Jackson APRN, [facility] ORDERABLES Fi nal Result [facility] [address] [place] [address], [place] * Stool, Occult Blood, Diagnostic (03/13/2017 3:00 PM WELDING MACHINE OPERATOR GAS METAL ARC) OCCULT BLOOD DIAG Negative Negative 03/13/2017 3:11 PM WELDING MACHINE OPERATOR GAS METAL ARC [facility] Stool specimen (specimen) STOOL SPECIMEN / Unknown Non-Phlebotomy Collection / Unknown 03/13/2017 3:00 PM WELDING MACHINE OPERATOR GAS METAL ARC 03/13/2017 3:04 PM WELDING MACHINE OPERATOR GAS METAL ARC us Randy Hendrickson MD BODY FLUIDS & STOOLS ORDERA BLES Final Result Performing Organization Address City/[facility]/ZIP Co de Phone Number [facility] [address] [place] [address] from Last 3 Months or Most Recently Relevant to Health Maintenance Insurance MEDICAID [employer] ATTN CLAIMS DEPT [place]IEN [id number] Advance Directives * Full Code (Latest Code [...] measures to stabilize the patient. Care Teams Packer Insulation Relationship Specialty Start Date End Date Provider, None [place] PCP - General 10/29/23 Siri Henao APRN, LEGGER PRESS OPERATOR [address] [place] [address] Nurse Practitioner Advanced Practice Nurse 02/17/22 Gregorio Lemus MD [address] [place] [address] Consulting Physician Neurology 02/21/23
[2024-10-01 07:37] LABS: Estimated Glomerular Filt Rate > 60
== END 2024-10-01 07:13 | disposition home or self-care (01) ==
PROVIDERS: Visit Provider Psychiatry & Neurology Neurology
DX: I67.1 Cerebral aneurysm, nonruptured (principal)
CPT/HCPCS: 70496; 70498; Q9967